=== PATIENT | female | born 1970 | race Caucasian/White ===

== ENCOUNTER → 2016-08-23 | Outpatient (CLI) | payer BC ==
--- NOTE | 2016-08-23 15:08 | US ---
EXAMINATION TYPE: US pelvis complete transvag DATE OF EXAM: 08/23/2016 7:16 AM COMPARISON: NONE CLINICAL HISTORY: R10.2 PELVIC PAIN. Pelvic pain during physical when pressure applied to pelvis, h/o ablation, h/o ovarian cysts years ago TECHNIQUE: TA and TV Date of LMP: h/o ablation, pt unsure EXAM MEASUREMENTS: Uterus: 10.0 x 5.4 x 4.7 cm Endometrial Stripe: 0.7 cm Right Ovary: 2.9 x 2.3 x 2.0 cm Left Ovary: 3.3 x 2.8 x 2.7 cm 1. Uterus: Anteverted wnl 2. Endometrium: wnl 3. Right Ovary: 1.6cm follicle seen 4. Left Ovary: 2.1cm simple appearing cyst only seen transabdominally 5. Bilateral Adnexa: wnl 6. Posterior cul-de-sac: wnl IMPRESSION: 1. 2.1 cm left ovarian cyst. Follow-up is recommended. 2. Small amount of fluid within the endometrial canal at the level of the cervix.
== END | disposition home or self-care (01) ==
LOC: RADUSWWP 06:49
PROVIDERS: ATTEND Obstetrics & Gynecology
DX: N83.202 Unspecified ovarian cyst, left side (principal)
CPT/HCPCS: 76830; 76856

== ENCOUNTER → 2017-03-06 | Outpatient (CLI) | payer OTHER ==
--- NOTE | 2017-03-07 09:58 | XR ---
EXAMINATION TYPE: XR chest 2V DATE OF EXAM: 03/06/2017 COMPARISON: 09/09/2014 HISTORY: Bronchitis TECHNIQUE: Frontal and lateral views of the chest are obtained. FINDINGS: There is no focal air space opacity. No evidence for pneumothorax. No pleural effusion. The cardiac silhouette size is within normal limits. The osseous structures are grossly intact. IMPRESSION: 1. No acute cardiopulmonary process.
== END ==
LOC: RADXRMAIN 15:46
PROVIDERS: ATTEND Internal Medicine
DX: J40 Bronchitis, not specified as acute or chronic (principal)
CPT/HCPCS: 71020

== ENCOUNTER → 2017-06-28 | Outpatient (CLI) | payer OTHER ==
--- NOTE | 2017-06-28 14:38 | XR ---
EXAMINATION TYPE: XR chest 2V DATE OF EXAM: 06/28/2017 COMPARISON: Prior chest x-ray 03/06/2017 HISTORY: Acute upper respiratory infection TECHNIQUE: Frontal and lateral views of the chest are obtained. FINDINGS: There is no focal air space opacity, pleural effusion, or pneumothorax seen. The cardiac silhouette size is within normal limits. Azygos lobe again noted and is stable. The osseous structur es are intact. IMPRESSION: No acute cardiopulmonary process.
== END | disposition home or self-care (01) ==
LOC: RADXRMAIN 09:56
PROVIDERS: ATTEND Internal Medicine
DX: J06.9 Acute upper respiratory infection, unspecified (principal)
CPT/HCPCS: 71046

== ENCOUNTER 2018-01-31 14:47 | Observation (INO) | payer OTHER ==
[2018-01-31] MEDS ORDERED: ASPIRIN 81 MG PO STA (15:02)
--- NOTE | 2018-01-31 15:05 | ED ---
Chest Pain HPI - General Chief Complaint: Chest Pain Stated Complaint: chest pain Time Seen by Provider: 01/31/18 14:56 Source: patient, RN notes reviewed Mode of arrival: wheelchair Limitations: no limitations - History of Present Illness Initial Comments: This a 47-year-old female presents emergency Department with chief complaint of chest pain. Patient states started 1 hour prior arrival. Patient states that she had sharp stabbing type pain in her left side of her chest rate to her shoulder and she became very nauseated and diaphoretic. She states pain is improving at this time. She states initially he did take her breath away but she has no current shortness breath. She does have a history of hypertension and struck her doses. Patient has stress test several years ago. Patient denies any history of diabetes, hyperlipidemia or smoking history. Patient states she does have family heart disease. - Related Data Home Medications Medication Instructions Recorded Confirmed Multivitamins, Thera [Multivitamin] 1 tab PO DAILY 01/06/16 01/31/18 Potassium Chloride [Klor-Con] 20 meq PO TID 01/06/16 01/31/18 Aspirin EC [Ecotrin Low Dose] 81 mg PO DAILY 01/31/18 01/31/18 Atenolol/Chlorthalidone 1 tab PO DAILY 01/31/18 01/31/18 [Atenolol-Chlorthalidone 100-25] Cholecalciferol [Vitamin D3] 1,000 unit PO DAILY 01/31/18 01/31/18 Levothyroxine Sodium [Synthroid] 175 mcg PO DAILY 01/31/18 01/31/18 buPROPion XL [Wellbutrin Xl] 150 mg PO DAILY 01/31/18 01/31/18 Allergies Allergy/AdvReac Type Severity Reaction Status Date / Time acetaminophen [From Vicodin] Allergy Rash/Hives Verified 01/31/18 15:44 hydrocodone bitartrate Allergy Rash/Hives Verified 01/31/18 15:44 [From Vicodin] meperidine HCl [From Demerol] Allergy Rash/Hives Verified 01/31/18 15:44 sulfamethoxazole Allergy Rash/Hives Verified 01/31/18 15:44 [From Bactrim] trimethoprim [From Bactrim] Allergy Rash/Hives Verified 01/31/18 15:44 Review of Systems ROS Statement: Those systems with pertinent positive or pertinent negative responses have been documented in the HPI. ROS Other: All systems not noted in ROS Statement are negative. EKG Findings - EKG Comments: EKG Findings:: EKG performed at 15:05 normal sinus rhythm with a rate of 76 VT 200 QRS 90 QT status QTC 376/423 there is no EKG changes noted from prior EKG 3 years ago. 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 History of Any Multi-Drug Resistant Organisms: None Reported Past Surgical History: No Surgical Hx Reported Past Anesthesia/Blood Transfusion Reactions: No Reported Reaction Past Psychological History: Depression Smoking Status: Never smoker Past Alcohol Use History: Occasional Past Drug Use History: None Reported - Past Family History Father Family Medical History: Hypertension Additional Family Medical History / Comment(s): alcoholic Mother Family Medical History: Hypertension General Exam Limitations: no limitations General appearance: alert, in no apparent distress Head exam: Present: atraumatic, normocephalic, normal inspection Neck exam: Present: normal inspection, full ROM. Absent: tenderness, meningismus, lymphadenopathy Respiratory exam: Present: normal lung sounds bilaterally. Absent: respiratory distress, wheezes, rales, rhonchi, stridor Cardiovascular Exam: Present: regular rate, normal rhythm, normal heart sounds. Absent: systolic murmur, diastolic murmur, rubs, gallop, clicks GI/Abdominal exam: Present: soft, normal bowel sounds. Absent: distended, tenderness, guarding, rebound, rigid Back exam: Absent: CVA tenderness (R), CVA tenderness (L) Neurological exam: Present: alert, oriented X3, CN II-XII intact Skin exam: Present: warm, dry, intact, normal color. Absent: rash Course Vital Signs 01/31/18 01/31/18 14:50 15:43 Temperature 97.9 F Pulse Rate 88 67 Respiratory 18 18 Rate Blood Pressure 134/81 116/77 O2 Sat by Pulse 99 98 Oximetry Disposition Clinical Impression: Chest pain Disposition: ADMITTED IP TO THIS HOSP Condition: Stable Referrals: Frankie Miller MD [Primary Care Provider] - 1-2 days Time of Disposition: 16:31
[2018-01-31 15:26] LABS: Basophils % (A) 1 %; Eosinophils # (A) 0.2 k/uL (0-0.7); Eosinophils % (A) 3 %; HCT 43.8 % (34.0-46.0); HGB 14.5 gm/dL (11.4-16.0); Lymphocytes # (A) 2.7 k/uL (1.0-4.8); Lymphocytes % (A) 37 %; MCH 30.6 pg (25.0-35.0); MCHC 33.1 g/dL (31.0-37.0); MCV 92.4 fL (80.0-100.0); Mean Platelet Volume 7.3; Monocytes # (A) 0.4 k/uL (0-1.0); Monocytes % (A) 5 %; Neutrophils # (A) 3.8 k/uL (1.3-7.7); Neutrophils % (A) 52 %; Platelet Count 305 k/uL (150-450); RBC 4.74 m/uL (3.80-5.40); RDW 12.8 % (11.5-15.5); WBC 7.2 k/uL (3.8-10.6)
[2018-01-31 15:35] LABS: Partial Thromboplastin Time 24.2 sec (22.0-30.0); Prothrombin Time 9.6 sec (9.0-12.0)
[2018-01-31 15:36] LABS: ALT 65 U/L (9-52); AST 60 U/L (14-36); Albumin 4.2 g/dL (3.5-5.0); Alkaline Phosphatase 109 U/L (38-126); Anion Gap 10 mmol/L; Blood Urea Nitrogen 20 mg/dL (7-17); Calcium 9.3 mg/dL (8.4-10.2); Carbon Dioxide 26 mmol/L (22-30); Chloride 103 mmol/L (98-107); Glucose 112 mg/dL (74-99); Lipase 124 U/L (23-300); Magnesium 1.9 mg/dL (1.6-2.3); Potassium 3.1 mmol/L (3.5-5.1); Sodium 139 mmol/L (137-145); Total Bilirubin 0.6 mg/dL (0.2-1.3); Total Protein 7.3 g/dL (6.3-8.2)
--- NOTE | 2018-01-31 15:42 | XR ---
EXAMINATION TYPE: XR chest 2V DATE OF EXAM: 01/31/2018 COMPARISON: 06/28/2017 TECHNIQUE: PA and lateral views submitted. HISTORY: Chest pain FINDINGS: There are bibasilar subsegmental areas of consolidation. Right hemidiaphragm is elevated. Heart size normal. No pneumothorax or overt failure. IMPRESSION: 1. Bilateral lower lobe atelectasis or early infiltrate.
[2018-01-31] MEDS ORDERED: POTASSIUM CHLORIDE ER 20 MEQ TAB.ER PO STA (15:43)
[2018-01-31 15:46] LABS: Creatine Kinase 59 U/L (30-135)
[2018-01-31 15:59] LABS: Creatine Kinase MB 0.2 ng/mL (0.0-2.4); Troponin I <0.012 ng/mL (0.000-0.034)
[2018-01-31] MEDS ORDERED: NITROGLYCERIN SL TABS 0.4 MG TAB SUBLINGUAL PRN (16:31)
[2018-01-31] MEDS ORDERED: HEPARIN SODIUM,PORCINE 5,000 UNIT/ML 1 ML VIAL IV ONE (16:31)
[2018-01-31] MEDS ORDERED: HEPARIN SOD,PORK IN 0.45% NACL 25,000 UNIT in 0.45% NACL 1 500ML.BAG IV SCH (16:45)
[2018-01-31] MEDS ORDERED: NALOXONE 0.4 MG/ML 1 ML VIAL IV PRN (18:24)
--- NOTE | 2018-01-31 18:31 | P.HPIM ---
History of Present Illness H&P Date: 01/31/18 The patient is a 47-year-old female with a past medical history of hypertension , who presented to the ED with complaints of left-sided, pressure-like chest pain. The pain started suddenly and was 10/10, radiating to the L shoulder, w/ associated SOB, nausea, diaphoresis, lasting 20 minutes, after which it decreased significantly and gradually resolved over the next hour. The pain worsened with deep breaths though the patient denied any tenderness of the site. The patient was sitting down when the pain started and she denied it having an exertional component or the pain having occurred in the past. She otherwise denied any anxiety, fever, chills, cough, vomiting, diarrhea, headache , visual disturbances, LE swelling, calf pain, prolonged immobilization, recent travel, or sick contacts. Of note, the patient had presented to ED w/ chest pain in 2014 and had a negative stress test. Review of Systems Pertinent positives and negatives as discussed in HPI, a complete review of systems was performed and all other systems are negative. 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 History of Any Multi-Drug Resistant Organisms: None Reported Past Surgical History: No Surgical Hx Reported Past Anesthesia/Blood Transfusion Reactions: No Reported Reaction Past Psychological History: Depression Smoking Status: Never smoker Past Alcohol Use History: Occasional Past Drug Use History: None Reported - Past Family History Father Family Medical History: Hypertension Additional Family Medical History / Comment(s): alcoholic Mother Family Medical History: Hypertension Medications and Allergies Home Medications Medication Instructions Recorded Confirmed Type Multivitamins, Thera [Multivitamin] 1 tab PO DAILY 01/06/16 01/31/18 History Potassium Chloride [Klor-Con] 20 meq PO TID 01/06/16 01/31/18 History Aspirin EC [Ecotrin Low Dose] 81 mg PO DAILY 01/31/18 01/31/18 History Atenolol/Chlorthalidone 1 tab PO DAILY 01/31/18 01/31/18 History [Atenolol-Chlorthalidone 100-25] Cholecalciferol [Vitamin D3] 1,000 unit PO DAILY 01/31/18 01/31/18 History Levothyroxine Sodium [Synthroid] 175 mcg PO DAILY 01/31/18 01/31/18 History buPROPion XL [Wellbutrin Xl] 150 mg PO DAILY 01/31/18 01/31/18 History Allergies Allergy/AdvReac Type Severity Reaction Status Date / Time acetaminophen [From Vicodin] Allergy Rash/Hives Verified 01/31/18 15:44 hydrocodone bitartrate Allergy Rash/Hives Verified 01/31/18 15:44 [From Vicodin] meperidine HCl [From Demerol] Allergy Rash/Hives Verified 01/31/18 15:44 sulfamethoxazole Allergy Rash/Hives Verified 01/31/18 15:44 [From Bactrim] trimethoprim [From Bactrim] Allergy Rash/Hives Verified 01/31/18 15:44 Physical Exam Vitals: Vital Signs Temp Pulse Pulse Resp BP BP Pulse Ox 01/31/18 17:30 98.1 F 66 122/76 96 01/31/18 17:15 72 18 116/78 97 01/31/18 16:36 64 18 111/71 99 01/31/18 15:43 67 18 116/77 98 01/31/18 14:50 97.9 F 88 18 134/81 99 Intake and Output 01/31/18 01/31/18 01/31/18 06:59 14:59 22:59 Other: Weight 85.729 kg 84.9 kg General: [non toxic], [no distress], [appears at stated age], [normal weight] Derm: [no unusual rashes/lesions] [no unusual ecchymoses], [warm], [dry] Head: [atraumatic], [normocephalic], [symmetric] Eyes: [EOMI], [no lid lag], [anicteric sclera], [pupils equal round reactive to light] ENT: [Nose and ears atraumatic], [no thrush], [no pharyngeal erythema] Neck: [No thyromegaly], [no cervical lymphadenopathy], [trachea midline], [ supple] Mouth: [no lip lesion], [mucus membranes moist] Cardiovascular: [S1S2 reg], [no murmur], [positive posterior tibial pulse bilateral], [no edema], [capillary refill less than 2 seconds], no chest wall tenderness Lungs: [CTA bilateral], [no rhonchi, no rales] , [no accessory muscle use] Abdominal: [soft], [ nontender to palpation], [no guarding], [no appreciable organomegaly], [normal bowel sounds] Ext: [no gross muscle atrophy], [muscle strength 5 out of 5 in all 4 extremities grossly], [no contractures], trace LE edema mercedes Neuro: [ CN II-XI grossly intact], [light touch intact all 4 extremities], [ finger to nose within normal limits], Psych: [Alert], [oriented], [appropriate affect] Results CBC & Chem 7: 01/31/18 15:10 01/31/18 15:10 Labs: Abnormal Lab Results - Last 24 Hours (Table) 01/31/18 Range/Units 15:10 Potassium 3.1 L (3.5-5.1) mmol/L BUN 20 H (7-17) mg/dL Glucose 112 H (74-99) mg/dL AST 60 H (14-36) U/L ALT 65 H (9-52) U/L Assessment and Plan Plan: Chest pain, r/o ACS, Troponin neg, EKG w/ TWI in leads V1-V3 and flattening in III, aVF, V4 and V5 - Place in Observation - Cardiology consult - Trend Troponin x 3, Telemetry monitoring - C/w Heparin infusion for now - C/w Aspirin 325 mg po qd for now. Will start Lipitor 40 mg qhs. Give Ezaimy12 mg po qd. - SL Nitro prn - Check lipid panel and A1C HTN - C/w Atenolol/Chlorthalidone 100-25 mg po qd Hypokalemia - Will replace Deranged LFTs - Monitor for now DVT//GI prophylaxis - Heparin infusion - No indication for GI prophylaxis The patient is placed in observation with an anticipated less than 2 per night stay for evaluation of chest pain Surrogate decision-maker: CODE STATUS: Full-code Discussed with: patient, Anticipated discharge date: 02/01/[address]: home A total of 60 minutes was spent on the care of this complex patient more than 50 % of the time was spent in counseling and care coordination.
[2018-01-31] MEDS: POTASSIUM BICARBONATE/CIT AC 20 MEQ TABLET.EFF PO SCH ×2 (18:56→20:52)
[2018-01-31] MEDS ORDERED: HEPARIN SODIUM,PORCINE 5,000 UNIT/ML 1 ML VIAL IV PRN (19:33)
[2018-01-31 23:07] LABS: Creatine Kinase 49 U/L (30-135)
[2018-01-31 23:20] LABS: Creatine Kinase MB <0.2 ng/mL (0.0-2.4); Troponin I <0.012 ng/mL (0.000-0.034)
[2018-02-01 00:20] VITALS: RESP 16
[2018-02-01 04:17] LABS: Creatine Kinase 46 U/L (30-135)
[2018-02-01 04:23] LABS: HCT 40.3 % (34.0-46.0); HGB 13.3 gm/dL (11.4-16.0); MCH 30.2 pg (25.0-35.0); MCHC 32.9 g/dL (31.0-37.0); MCV 91.9 fL (80.0-100.0); Mean Platelet Volume 7.7; Platelet Count 258 k/uL (150-450); RBC 4.38 m/uL (3.80-5.40); RDW 12.7 % (11.5-15.5); WBC 6.3 k/uL (3.8-10.6)
[2018-02-01 04:30] LABS: Creatine Kinase MB <0.2 ng/mL (0.0-2.4); Troponin I <0.012 ng/mL (0.000-0.034)
[2018-02-01 04:31] LABS: ALT 67 U/L (9-52); AST 58 U/L (14-36); Albumin 3.5 g/dL (3.5-5.0); Alkaline Phosphatase 93 U/L (38-126); Anion Gap 6 mmol/L; Blood Urea Nitrogen 21 mg/dL (7-17); Calcium 9.3 mg/dL (8.4-10.2); Carbon Dioxide 26 mmol/L (22-30); Chloride 106 mmol/L (98-107); Cholesterol 179 mg/dL (<200); Glucose 90 mg/dL (74-99); HDL Cholesterol 39 mg/dL (40-60); LDL Cholesterol,Calculated 94 mg/dL (0-99); Potassium 3.7 mmol/L (3.5-5.1); Sodium 138 mmol/L (137-145); Total Bilirubin 0.5 mg/dL (0.2-1.3); Total Protein 6.2 g/dL (6.3-8.2); Triglycerides 231 mg/dL (<150)
[2018-02-01 07:37] VITALS: TEMP 98.3
--- NOTE | 2018-02-01 07:38 | CONS ---
CONSULTATION Mrs. Cason's 47-year-old female with known history of hypertension, history of sarcoidosis that is in remission, who presented with symptoms of chest discomfort. Her discomfort started yesterday while at work, radiating to the left arm. She was afraid to take a deep breath because she felt the discomfort will get worse. She has no prior history of documented coronary artery disease. She was admitted to the hospital in 2015 with symptoms of chest discomfort and at that time a stress echocardiogram revealed no evidence of inducible ischemia. She is active in her physical activity, has no exertional chest pain. She has no dizziness or palpitation. No syncope. No PND or orthopnea. No peripheral edema. She has been followed by Dr. Pallavi Maguire on a regular basis. Her coronary risk factors are remarkable for hypertension. She is not a smoker, no hyperlipidemia and nondiabetic. MEDICATION: Her medications at home include Wellbutrin 150 mg daily, aspirin once a day, potassium, atenolol chlorthalidone 100/25 mg daily and levothyroxine. REVIEW OF SYSTEMS: RESPIRATORY SYSTEM: She has no documented history of asthma, emphysema or bronchitis. She has sarcoidosis as noted that is in remission and has been followed by Dr. Rock in the past. GI SYSTEM: No recent GI bleed, no peptic ulcer disease. No nausea or vomiting. SYSTEM: No dysuria or hematuria. NERVOUS SYSTEM: No stroke or seizure. PHYSICAL EXAMINATION: She is a 47-year-old female, alert, oriented, in no apparent distress. Blood pressure 102/60 with the heart rate in the 60s. HEAD: Normocephalic. EYES: Sclerae anicteric. NECK: Good upstroke. No bruit. No jugular venous distention. LUNGS: Clear to auscultation. HEART: Regular rate and rhythm. S1, S2. No S3. No gallop or rub. ABDOMEN: Soft, nontender. Positive bowel sounds. No organomegaly. EXTREMITIES: No edema. Intact distal pulses. LAB DATA: Her troponin less than 0.012, cholesterol 179, LDL of 94. Her BUN and creatinine 21 and 0.74. Potassium 3.7. Hemoglobin is 13.3. Her EKG revealed sinus mechanism, normal axis and intervals with T-wave inversion anteriorly that was noted in the past. Her chest x-ray shows questionable infiltrate on the lower lobe. IMPRESSION: 1. Symptoms of chest discomfort appears to be atypical for ischemic heart disease probably noncardiac. 2. History of hypertension, stable. 3. History of sarcoidosis. RECOMMENDATION: From the cardiac standpoint, I will stop her IV heparin. I will proceed with a stress echocardiogram. If there is no evidence of inducible ischemia, then no further cardiac workup will be needed. Thank you for this consult. We will follow with you. RON / JEANNINE: [id number] /
[2018-02-01] MEDS ORDERED: CLOPIDOGREL 75 MG TAB PO SCH (09:00)
[2018-02-01] MEDS ORDERED: ATORVASTATIN 40 MG TAB PO SCH (09:00)
[2018-02-01] MEDS ORDERED: CHLORTHALIDONE 25 MG TAB PO SCH (09:00)
[2018-02-01] MEDS ORDERED: ASPIRIN 325 MG TAB PO SCH ×2 (09:00)
[2018-02-01] MEDS ORDERED: ATENOLOL 50 MG TAB PO SCH (09:00)
[2018-02-01 12:04] VITALS: BP 94/60; PULSE 70
--- NOTE | 2018-02-01 12:53 | ECHOF ---
Referral Reason: MEASUREMENTS -------- HEIGHT: 160.0 cm WEIGHT: 84.8 kg BP: 102/66 RVIDd: 2.7 cm (< 3.3) IVSd: 1.1 cm (0.6 - 1.1) LVIDd: 4.2 cm (3.9 - 5.3) LVPWd: 1.1 cm (0.6 - 1.1) IVSs: 1.9 cm LVIDs: 2.9 cm LVPWs: 1.4 cm LA Diam: 3.1 cm (2.7 - 3.8) LAESV Index (A-L): 19.14 ml/m Ao Diam: 3.1 cm (2.0 - 3.7) AV Cusp: 1.9 cm (1.5 - 2.6) MV EXCURSION: 14.577 mm (> 18.000) MV EF SLOPE: 89 mm/s (70 - 150) EPSS: 0.4 cm MV E Colton: 0.67 m/s MV DecT: 277 ms MV A Colton: 0.62 m/s MV E/A Ratio: 1.09 FINDINGS -------- Sinus rhythm. This was a technically adequate study. The left ventricular size is normal. There is borderline concentric left ventricular hypertrophy. Overall left ventricular systolic function is normal with, an EF between 55 - 60 %. The right ventricle is normal in size. Normal LA size by volume 22+/-6 ml/m2. The right atrium is normal in size. The aortic valve is trileaflet, and appears structurally normal. No aortic stenosis or regurgitation. The mitral valve is normal. There is trace to mild mitral regurgitation. The tricuspid valve appears structurally normal. Trace tricuspid regurgitation present. There is no pulmonic regurgitation present. The aortic root size is normal. Normal inferior vena cava with normal inspiratory collapse consistent with estimated right atrial pre ssure of 5 mmHg. There is no pericardial effusion. CONCLUSIONS -------- 1. Sinus rhythm. 2. This was a technically adequate study. 3. The left ventricular size is normal. 4. There is borderline concentric left ventricular hypertrophy. 5. Overall left ventricular systolic function is normal with, an EF between 55 - 60 %. 6. Normal LA size by volume 22+/-6 ml/m2. 7. The aortic valve is trileaflet, and appears structurally normal. No aortic stenosis or regurgitati on. 8. There is trace to mild mitral regurgitation. 9. The tricuspid valve appears structurally normal. 10. Trace tricuspid regurgitation present. 11. There is no pulmonic regurgitation present. 12. The aortic root size is normal. 13. Normal inferior vena cava with normal inspiratory collapse consistent with estimated right atrial pressure of 5 mmHg. 14. There is no pericardial effusion. ASSOCIATE QUALITY ENGINEER: Susy Shore RDCS
[2018-02-01 13:50] LABS: Hemoglobin A1C 4.9 % (4.0-6.0)
--- NOTE | 2018-02-01 14:02 | ECHOS ---
STRESS ECHOCARDIOGRAM INDICATIONS: Chest pain, shortness of breath. BASELINE HEART RATE: 65 BASELINE BLOOD PRESSURE: 87/58 MAXIMUM HEART RATE: 155 MAXIMUM BLOOD PRESSURE: 198/44 85% MPHR: 145 100% MPHR: 171 METS: 11.1 MAXIMUM STAGE REACHED: 4 TOTAL EXERCISE TIME: 9:30 CLINICAL INFORMATION: Baseline rhythm is sinus mechanism rate 65, normal axis and intervals, nonspecific ST-T wave changes. Baseline blood pressure 87/58 mmHg. Patient exercised on Lambert protocol for 9 minutes 30 seconds reaching peak rate 155 beats per minute which is equal to 90% maximum predicted heart rate. Peak blood pressure 198/44 mmHg. Test was terminated due to fatigue. There was no chest pain. Electrocardiograph monitoring revealed no evidence of diagnostic ischemic ST deviation. FINDINGS: Baseline echocardiogram revealed normal wall thickening motion at peak exercise. There was normal wall motion augmentation with no hypokinesis or dyskinesis. CONCLUSION: 1. Good exercise tolerance with nondiagnostic electrocardiograph stress testing, some baseline EKG abnormality. 2. Normal stress echocardiogram with no evidence of stress-induced ischemia. MMODL / IJN: [id number] /
--- NOTE | 2018-02-01 15:51 | P.DS ---
Providers Date of admission: 01/31/18 16:50 Expected date of discharge: 02/01/18 Attending physician: Jamaica Hassan DO Consults: 01/31/18 16:31 Consult Physician Urgent Consulting Provider: Lopez Hernandez Consult Reason/Comments: Chest pain Do you want consulting provider notified?: Yes Primary care physician: [facility] Course: The patient is a 47 yo F with the PMH of HTN who presented to the ED w/ the c/o L sided pressure like chest pain which lasting 20 minutes, radiating to L shoulder, w/ associated SOB, nausea, and diaphoresis. The patient was placed under Observation status for the chest pain and was started on IV Heparin infusion. EKG showed TWI and flattening in multiple leads with Troponin neg x 3. Furthermore, patient's potassium was low and was repleted. Cardiology was consulted and recommended stress Echo which was performed and was unremarkable. The patient had no further recurrence of her symptoms and she is presently stable and ready for discharge to home w/ outpatient Cardiology f/u. Physical Examination General: Awake, alert, in no acute distress HEENT: NC/AT, anicteric sclerae, moist conjunctiva, no lid-lag, PERRLA, oropharynx clear, no erythema, exudates Cardiovascular: S1/S2 wnl, no murmurs, rubs, or gallops Lungs: Clear to auscultation, normal respiratory effort, no accessory muscle use Abdominal: Soft, nontender, non-distended, no guarding, rebound, or rigidity, normoactive bowel sounds Skin: Warm, dry Extremities: No edema or contractures Psychiatric: Alert and oriented to person, place and time, appropriate affect, Intact judgment Neuro: CN II-XI grossly intact, sensation to light touch grossly present throughout, no focal sensory deficits Discharge diagnosis:Chest pain, musculoskeletal, ACS ruled out; HTN; Hypokalemia , Deranged LFTs. A total of 45 minutes of time were spent preparing this complex discharge summary. Pertinent Studies: Stress Echocardiogram: Good exercise tolerate w/ non-diagnostic EKG stress testing w/ some baseline EKG abnormality. Normal stress Echo w/ no evidence of stress-induced ischemia. Patient Condition at Discharge: Stable Plan - Discharge Summary Discharge Rx Participant: No New Discharge Prescriptions: Continue Potassium Chloride [Klor-Con Packets] 20 meq PO TID Multivitamins, Thera [Multivitamin (formulary)] 1 tab PO DAILY buPROPion XL [Wellbutrin XL] 150 mg PO DAILY Cholecalciferol [Vitamin D3] 1,000 unit PO DAILY Aspirin EC [Ecotrin Low Dose] 81 mg PO DAILY Levothyroxine Sodium [Synthroid] 175 mcg PO DAILY Atenolol/Chlorthalidone [Atenolol-Chlorthalidone 100-25] 1 tab PO DAILY Discharge Medication List Multivitamins, Thera [Multivitamin (formulary)] 1 tab PO DAILY 01/06/16 [History ] Potassium Chloride [Klor-Con Packets] 20 meq PO TID 01/06/16 [History] Aspirin EC [Ecotrin Low Dose] 81 mg PO DAILY 01/31/18 [History] Atenolol/Chlorthalidone [Atenolol-Chlorthalidone 100-25] 1 tab PO DAILY [History] Cholecalciferol [Vitamin D3] 1,000 unit PO DAILY 01/31/18 [History] Levothyroxine Sodium [Synthroid] 175 mcg PO DAILY 01/31/18 [History] buPROPion XL [Wellbutrin XL] 150 mg PO DAILY 01/31/18 [History] Follow up Appointment(s)/Referral(s): Shana Maguire MD [STAFF PHYSICIAN] - As Needed (Patient has an existing appointment with Dr Maguire that she will follow up with.) Frankie Miller MD [Primary Care Provider] - 1-2 days Patient Instructions/Handouts: Chest Pain (DC) Discharge Disposition: HOME SELF-CARE
== END 2018-02-01 14:55 | disposition home or self-care (01) ==
LOC: EC 14:47 → 3OBS 16:50
PROVIDERS: ADMIT Internal Medicine; ATTEND Internal Medicine
DX: R07.89 Other chest pain (principal); I10 Essential (primary) hypertension; D86.9 Sarcoidosis, unspecified; E87.6 Hypokalemia; R94.5 Abnormal results of liver function studies; E07.9 Disorder of thyroid, unspecified; F32.9 Major depressive disorder, single episode, unspecified; Z79.82 Long term (current) use of aspirin; Z79.890 Hormone replacement therapy; Z79.899 Other long term (current) drug therapy; Z88.6 Allergy status to analgesic agent; Z88.1 Allergy status to other antibiotic agents; Z88.5 Allergy status to narcotic agent; Z88.2 Allergy status to sulfonamides; Z81.1 Family history of alcohol abuse and dependence; Z82.49 Family history of ischemic heart disease and other diseases of the circulatory system
CPT/HCPCS: 96366 ×2; 96376; 96365; 99285; 36415; 93005; 93306; 93351; 80061; 80053 ×2; 82550 ×2; 82553 ×2; 83690; 83735; 84484 ×2; 85025; 85027; 85610; 85730 ×2; 83036; 71046; G0378 ×2; J1644 ×2; Q9950

== ENCOUNTER → 2018-02-19 | Outpatient (CLI) | payer OTHER ==
[2018-02-19 10:52] LABS: Basophils % (A) 0 %; Eosinophils # (A) 0.2 k/uL (0-0.7); Eosinophils % (A) 3 %; HCT 40.4 % (34.0-46.0); HGB 13.7 gm/dL (11.4-16.0); Lymphocytes # (A) 2.1 k/uL (1.0-4.8); Lymphocytes % (A) 33 %; MCH 30.7 pg (25.0-35.0); MCHC 33.8 g/dL (31.0-37.0); MCV 90.7 fL (80.0-100.0); Mean Platelet Volume 7.6; Monocytes # (A) 0.5 k/uL (0-1.0); Monocytes % (A) 8 %; Neutrophils # (A) 3.4 k/uL (1.3-7.7); Neutrophils % (A) 54 %; Platelet Count 250 k/uL (150-450); RBC 4.46 m/uL (3.80-5.40); RDW 12.7 % (11.5-15.5); WBC 6.3 k/uL (3.8-10.6)
[2018-02-19 12:07] LABS: Erythrocyte Sedimentation Rate 15 mm/hr (0-20)
[2018-02-19 16:06] LABS: Rheumatoid Factor 8 IU/mL (0-15)
[2018-02-19 16:09] LABS: Albumin 4.4 g/dL (3.80-4.90); Albumin/Globulin Ratio 1.91 (1.20-2.10); Anion Gap 9.6 mmol/L (4.00-12.00); Calcium 9.4 mg/dL (8.7-10.3); Carbon Dioxide 26.4 mmol/L (21.6-31.8); Globulin 2.3 g/dL (2.1-3.7); Potassium 3.6 mmol/L (3.5-5.5); Total Bilirubin 0.5 mg/dL (0.2-1.2); Total Protein 6.7 g/dL (6.2-8.2)
[2018-02-19 17:52] LABS: Cyclic Citrullinated Pep IgG NEGATIVE (NEGATIVE)
== END | disposition home or self-care (01) ==
LOC: LABWHC1 10:11
PROVIDERS: ATTEND Internal Medicine
DX: M06.9 Rheumatoid arthritis, unspecified (principal); D86.86 Sarcoid arthropathy
CPT/HCPCS: 36415; 80053; 82164; 85025; 85652; 86038; 86200; 86431

== ENCOUNTER 2018-04-03 08:19 | Inpatient (IN) | payer OTHER ==
[2018-04-03] MEDS ORDERED: HYDROmorphone 1 MG/ML 1 ML SYRINGE IVP STA ×3 (08:41→11:16)
[2018-04-03] MEDS ORDERED: ONDANSETRON 4 MG/2 ML VIAL IVP STA (08:41)
[2018-04-03] MEDS ORDERED: SODIUM CHLORIDE 0.9% 1,000 ML IV STA (08:41)
--- NOTE | 2018-04-03 08:47 | ED ---
General Adult HPI - General Chief complaint: Abdominal Pain Stated complaint: Abd Pain Time Seen by Provider: 04/03/18 08:27 Source: patient, RN notes reviewed Mode of arrival: ambulatory Limitations: no limitations - History of Present Illness Initial comments: Patient 47-year-old female presenting to the emergency room today with a chief complaint of right-sided abdominal pain starting last night approximately 7 PM. Patient describes it as sharp pain currently rated a 9/10. Denies any radiation. Does admit that she has history kidney stones also ovarian cyst. She states not sure if this feels similar to her. She does admit to feeling nauseated. Denies any other complaints symptoms. Patient denies any recent fever, chills, shortness of breath, chest pain, back pain, vomiting, numbness or tingling, dysuria or hematuria, constipation or diarrhea, headaches or visual changes, or any other complaints. - Related Data Home Medications Medication Instructions Recorded Confirmed Multivitamins, Thera [Multivitamin 1 tab PO DAILY 01/06/16 04/03/18 (formulary)] Potassium Chloride [Klor-Con 20 meq PO TID 01/06/16 04/03/18 Packets] Aspirin EC [Ecotrin Low Dose] 81 mg PO DAILY 01/31/18 04/03/18 Atenolol/Chlorthalidone 1 tab PO DAILY 01/31/18 04/03/18 [Atenolol-Chlorthalidone 100-25] Cholecalciferol [Vitamin D3] 1,000 unit PO DAILY 01/31/18 04/03/18 Levothyroxine Sodium [Synthroid] 175 mcg PO DAILY 01/31/18 04/03/18 traZODone HCL [Desyrel] 50 mg PO DAILY 04/03/18 04/03/18 Allergies Allergy/AdvReac Type Severity Reaction Status Date / Time acetaminophen [From Vicodin] Allergy Rash/Hives Verified 04/03/18 10:10 hydrocodone bitartrate Allergy Rash/Hives Verified 04/03/18 10:10 [From Vicodin] meperidine HCl [From Demerol] Allergy Rash/Hives Verified 04/03/18 10:10 sulfamethoxazole Allergy Rash/Hives Verified 04/03/18 10:10 [From Bactrim] trimethoprim [From Bactrim] Allergy Rash/Hives Verified 04/03/18 10:10 Review of Systems ROS Statement: Those systems with pertinent positive or pertinent negative responses have been documented in the HPI. ROS Other: All systems not noted in ROS Statement are negative. 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 History of Any Multi-Drug Resistant Organisms: None Reported Past Surgical History: No Surgical Hx Reported Additional Past Surgical History / Comment(s): hx bx lungs, rt thumb benign tumor removed,novosure ablation Past Anesthesia/Blood Transfusion Reactions: No Reported Reaction Past Psychological History: Depression Smoking Status: Never smoker Past Alcohol Use History: Occasional Past Drug Use History: None Reported - Past Family History Father Family Medical History: Hypertension Additional Family Medical History / Comment(s): alcoholic Mother Family Medical History: Hypertension General Exam - General Exam Comments Initial Comments: General: The patient is awake and alert, mild distress. Eye: There is normal conjunctiva bilaterally. No signs of icterus. Ears, nose, mouth and throat: There are moist mucous membranes and no oral lesions. Neck: The neck is supple, there is no tenderness or JVD. Cardiovascular: There is a regular rate and rhythm. No murmur, rub or gallop is appreciated. Respiratory: Lungs are clear to auscultation, respirations are non-labored, breath sounds are equal. No wheezes, stridor, rales, or rhonchi. Gastrointestinal: Abdomen soft on palpation. Patient tender greatest in right lower quadrant. No rebound, guarding or CVA tenderness. Musculoskeletal: Normal ROM, no tenderness. Neurological: A&O x 3. CN II-XII intact, There are no obvious motor or sensory deficits. Coordination appears grossly intact. Speech is normal. Skin: Skin is warm and dry and no rashes or lesions are noted. Psychiatric: Cooperative, appropriate mood & affect, normal judgment. Limitations: no limitations Course Vital Signs 04/03/18 04/03/18 08:21 08:29 Temperature 97.3 F L Pulse Rate 83 Respiratory 18 Rate Blood Pressure 124/78 124/89 O2 Sat by Pulse 98 Oximetry Medical Decision Making - Medical Decision Making Patient's labs been reviewed. Patient does have tenderness right lower quadrant. CT reviewed does show evidence for acute appendicitis. Patient started on Zosyn here in the emergency room will be admitted to the on-call surgeon. - Lab Data Result diagrams: 04/03/18 08:37 04/03/18 08:37 Lab Results 04/03/18 04/03/18 04/03/18 Range/Units 08:37 08:37 08:45 WBC 7.6 (3.8-10.6) k/uL RBC 4.80 (3.80-5.40) m/uL Hgb 14.5 (11.4-16.0) gm/dL Hct 43.5 (34.0-46.0) % MCV 90.5 (80.0-100.0) fL MCH 30.2 (25.0-35.0) pg MCHC 33.3 (31.0-37.0) g/dL RDW 12.4 (11.5-15.5) % Plt Count 272 (150-450) k/uL Neutrophils % 63 % Lymphocytes % 26 % Monocytes % 6 % Eosinophils % 1 % Basophils % 0 % Neutrophils # 4.8 (1.3-7.7) k/uL Lymphocytes # 2.0 (1.0-4.8) k/uL Monocytes # 0.5 (0-1.0) k/uL Eosinophils # 0.1 (0-0.7) k/uL Basophils # 0.0 (0-0.2) k/uL Sodium 141 (137-145) mmol/L Potassium 3.5 (3.5-5.1) mmol/L Chloride 103 (98-107) mmol/L Carbon Dioxide 27 (22-30) mmol/L Anion Gap 11 mmol/L BUN 28 H (7-17) mg/dL Creatinine 0.74 (0.52-1.04) mg/dL Est GFR (CKD-EPI)AfAm >90 (>60 ml/min/1.73 sqM) Est GFR (CKD-EPI)NonAf >90 (>60 ml/min/1.73 sqM) Glucose 98 (74-99) mg/dL Calcium 9.9 (8.4-10.2) mg/dL Total Bilirubin 0.7 (0.2-1.3) mg/dL AST 31 (14-36) U/L ALT 46 (9-52) U/L Alkaline Phosphatase 113 (38-126) U/L Total Protein 7.6 (6.3-8.2) g/dL Albumin 4.3 (3.5-5.0) g/dL Amylase 86 (30-110) U/L Lipase 102 (23-300) U/L Urine Color Yellow Urine Appearance Cloudy H (Clear) Urine pH 5.0 (5.0-8.0) Ur Specific [place] 1.022 (1.001-1.035) Urine Protein Negative (Negative) Urine Glucose (UA) Negative (Negative) Urine Ketones Negative (Negative) Urine Blood Trace H (Negative) Urine Nitrite Negative (Negative) Urine Bilirubin Negative (Negative) Urine Urobilinogen <2.0 (<2.0) mg/dL Ur Leukocyte Esterase Small H (Negative) Urine RBC <1 (0-5) /hpf Urine WBC 3 (0-5) /hpf Ur Squamous Epith Cells 8 H (0-4) /hpf Urine Mucus Occasional H (None) /hpf Disposition Clinical Impression: Acute appendicitis Disposition: ADMITTED IP TO THIS [facility] Condition: Stable Is patient prescribed a controlled substance at d/c from ED?: No Referrals: Frankie Miller MD [Primary Care Provider] - 1-2 days Time of Disposition: 10:32
[2018-04-03 09:12] LABS: ALT 46 U/L (9-52); AST 31 U/L (14-36); Albumin 4.3 g/dL (3.5-5.0); Alkaline Phosphatase 113 U/L (38-126); Amylase 86 U/L (30-110); Anion Gap 11 mmol/L; Basophils % (A) 0 %; Blood Urea Nitrogen 28 mg/dL (7-17); Calcium 9.9 mg/dL (8.4-10.2); Carbon Dioxide 27 mmol/L (22-30); Chloride 103 mmol/L (98-107); Eosinophils # (A) 0.1 k/uL (0-0.7); Eosinophils % (A) 1 %; Glucose 98 mg/dL (74-99); HCT 43.5 % (34.0-46.0); HGB 14.5 gm/dL (11.4-16.0); Lipase 102 U/L (23-300); Lymphocytes % (A) 26 %; MCH 30.2 pg (25.0-35.0); MCHC 33.3 g/dL (31.0-37.0); MCV 90.5 fL (80.0-100.0); Mean Platelet Volume 7.1; Monocytes # (A) 0.5 k/uL (0-1.0); Monocytes % (A) 6 %; Neutrophils # (A) 4.8 k/uL (1.3-7.7); Neutrophils % (A) 63 %; Platelet Count 272 k/uL (150-450); Potassium 3.5 mmol/L (3.5-5.1); RDW 12.4 % (11.5-15.5); Sodium 141 mmol/L (137-145); Total Bilirubin 0.7 mg/dL (0.2-1.3); Total Protein 7.6 g/dL (6.3-8.2); WBC 7.6 k/uL (3.8-10.6)
[2018-04-03 09:27] LABS: Appearance,Urine Cloudy (Clear); Bilirubin,Urine Negative (Negative); Blood,Urine Trace (Negative); Color,Urine Yellow; Glucose,Urine (UA) Negative (Negative); Ketones,Urine Negative (Negative); Leukocyte Esterase,Urine Small (Negative); Mucus,Urine Occasional /hpf; Nitrite,Urine Negative (Negative); Protein,Urine Negative (Negative); RBC,Urine <1 /hpf (0-5); Specific Gravity,Urine 1.022 (1.001-1.035); Squamous Epithelial Cell,Urine 8 /hpf (0-4); Urobilinogen,Urine <2.0 mg/dL (<2.0); WBC,Urine 3 /hpf (0-5)
--- NOTE | 2018-04-03 10:07 | CT ---
EXAMINATION TYPE: CT abdomen pelvis w con DATE OF EXAM: 04/03/2018 COMPARISON: NONE HISTORY: 47-year-old female with RLQ pain. TECHNIQUE: Contiguous axial scanning of the abdomen and pelvis following administration of 100 ml Iso wild 300 IV contrast. Delayed images through the kidneys and coronal/sagittal reconstructions perform ed. CT DLP: 812 mGycm Automated exposure control for dose reduction was used. FINDINGS: Heart normal size without pericardial effusion. Mild hazy areas of atelectasis in the lower lungs. Tiny hernia. No focal liver lesion or biliary ductal dilatation. Portal venous system is patent. Gallbladder, adrenal glands, left kidney, spleen, and pancreas appear within normal limits. Tiny cortical based subcentimeter hypodensity anterior upper pole right kidney too small for accurate CT characterization, likely tiny cyst. No dilated small bowel, free fluid, or free air. Mildly enlarged right-sided mesenteric lymph nodes measure up to 1.1 cm, likely reactive. The appendix is visualized, inflamed, thickened, and fluid-filled with mild periappendiceal fat stran ding and scattered dependent choleliths measuring up to 6 mm. There is a tiny 4 mm appendicolith at t he appendiceal base. Moderate stool burden. No additional pericolonic inflammatory change. Bladder nondistended. Uterus and ovaries are visualized. No abnormal fluid collection in the pelvis o r pelvic lymphadenopathy seen. Bones: No osseous destructive process. IMPRESSION: EXAM POSITIVE FOR MILD ACUTE DIVERTICULITIS. THERE ARE ASSOCIATED APPENDICOLITHS MEASURING 6 AND 4 MM . NO ABSCESS OR FREE AIR OR OTHER EVIDENT COMPLICATION.
[2018-04-03] MEDS ORDERED: PIPERACILLIN-TAZOBACTAM 3.375 GM in SODIUM CHLORIDE 0.9% 100 ML IVPB STA (10:25)
[2018-04-03] MEDS ORDERED: SODIUM CHLORIDE 0.9% 1,000 ML IV ONE (10:33)
[2018-04-03] MEDS ORDERED: HYDROmorphone 1 MG/ML 1 ML SYRINGE IVP PRN (10:33)
[2018-04-03] MEDS ORDERED: NALOXONE 0.4 MG/ML 1 ML VIAL IV PRN (10:33)
[2018-04-03] MEDS ORDERED: ACETAMINOPHEN IV (For NPO) 1,000 MG in EMPTY BAG 1 BAG IVPB STA (11:32)
[2018-04-03] MEDS ORDERED: diphenhydrAMINE 25 MG CAP PO STA (11:34)
--- NOTE | 2018-04-03 13:41 | P.GSHP ---
<Janet Barry - Last Filed: 04/03/18 14:08> History of Present Illness H&P Date: 04/03/18 Chief Complaint: Right side abdominal pain 47-year-old female presented to the emergency room with a chief complaint of developing a sudden onset of right-sided upper quadrant abdominal pain radiated across the back described it as a sharp intense pain. Patient stated she felt nauseated. Patient states does have a history of having prior kidney stones also ovarian cyst disease. This Pain felt different patient stated that been no change in bowel habits no fever chills no chest pain no shortness of breath. Patient states she felt nauseated but did not actually vomit. In the emergency room the patient was experiencing tenderness to the right upper and lower quadrant of the abdomen. A CAT scan was obtained of the abdomen and pelvis the report indicated acute appendicitis. Patient started on Zosyn admitted to the services of the attending. Patient denies any prior episodes when questioning. Patient gives no past abdominal surgical history. Past medical history hypertension, sarcoidosis, thyroid disease Patient has multiple drug ALLERGIES including Demerol, Vicodin, acetaminophen - Review of Systems Comment: Essentially unremarkable except as mentioned in the present illness Past Medical History Past Medical History: Chest Pain / Angina, Hypertension, Thyroid Disorder Additional Past Medical History / Comment(s): Pt states she has sarcoidosis which has affected all her organs except for her brain and heart, kidney stones which pt passed, ovarian cysts, hypothyroid, UTIs, hypokalemia. History of Any Multi-Drug Resistant Organisms: None Reported Past Surgical History: Uterine Ablation Additional Past Surgical History / Comment(s): Mediastinoscopy/bx, rt thumb benign tumor removed, novosure uterine ablation, colonoscopy. Past Anesthesia/Blood Transfusion Reactions: Motion Sickness Additional Past Anesthesia/Blood Transfusion Reaction / Comment(s): Pt states she has been itchy after general anesthesia. Smoking Status: Never smoker - Past Family History Father Family Medical History: Hypertension Additional Family Medical History / Comment(s): alcoholic Mother Family Medical History: Hypertension Medications and Allergies Home Medications Medication Instructions Recorded Confirmed Type Multivitamins, Thera [Multivitamin 1 tab PO DAILY 01/06/16 04/03/18 History (formulary)] Potassium Chloride [Klor-Con 20 meq PO TID 01/06/16 04/03/18 History Packets] Aspirin EC [Ecotrin Low Dose] 81 mg PO DAILY 01/31/18 04/03/18 History Atenolol/Chlorthalidone 1 tab PO DAILY 01/31/18 04/03/18 History [Atenolol-Chlorthalidone 100-25] Cholecalciferol [Vitamin D3] 1,000 unit PO DAILY 01/31/18 04/03/18 History Levothyroxine Sodium [Synthroid] 175 mcg PO DAILY 01/31/18 04/03/18 History traZODone HCL [Desyrel] 50 mg PO DAILY 04/03/18 04/03/18 History Allergies Allergy/AdvReac Type Severity Reaction Status Date / Time acetaminophen [From Vicodin] Allergy Rash/Hives Verified 04/03/18 10:10 hydrocodone bitartrate Allergy Rash/Hives Verified 04/03/18 10:10 [From Vicodin] meperidine HCl [From Demerol] Allergy Rash/Hives Verified 04/03/18 10:10 sulfamethoxazole Allergy Rash/Hives Verified 04/03/18 10:10 [From Bactrim] trimethoprim [From Bactrim] Allergy Rash/Hives Verified 04/03/18 10:10 Surgical - Exam Vital Signs Temp Pulse Resp BP Pulse Ox 97.3 F L 83 18 124/78 98 04/03/18 08:21 04/03/18 08:21 04/03/18 08:21 04/03/18 08:21 04/03/18 08:21 GENERAL APPEARANCE: patient is alert, oriented, in no acute distress. Just received IV pain medication VITAL SIGNS: Reviewed HEENT: Head is normocephalic and atraumatic. Pupils are equal and reactive. The nares are patent. Oropharynx is clear without lesions. NECK: Supple without lymphadenopathy. Traches midline. HEART: S1, S2. Regular rate and rhythm. Normal limits chest pain LUNGS: No crackles or wheezes are heard. Adequate air movement sats on room air 98% ABDOMEN: Soft, mild tenderness to the right lower quadrant radiating nondistended with good bowel sounds. No peritoneal signs. No palpable organomegaly or masses. EXTREMITIES: Normal skin color and turgor. No cyanosis, rash, ulceration, clubbing or edema. Radial pedal pulses are 2/4 bilaterally. NEUROLOGICAL: No focal deficits. Strength and sensation are grossly intact. Results - Labs 04/03/18 08:37 12/05/18 08:37 Abnormal Lab Results - Last 24 Hours (Table) 04/03/18 04/03/18 Range/Units 08:37 08:45 BUN 28 H (7-17) mg/dL Urine Appearance Cloudy H (Clear) Urine Blood Trace H (Negative) Ur Leukocyte Esterase Small H (Negative) Ur Squamous Epith Cells 8 H (0-4) /hpf Urine Mucus Occasional H (None) /hpf Diabetes panel 04/03/18 Range/Units 08:37 Sodium 141 (137-145) mmol/L Potassium 3.5 (3.5-5.1) mmol/L Chloride 103 (98-107) mmol/L Carbon Dioxide 27 (22-30) mmol/L BUN 28 H (7-17) mg/dL Creatinine 0.74 (0.52-1.04) mg/dL Glucose 98 (74-99) mg/dL Calcium 9.9 (8.4-10.2) mg/dL AST 31 (14-36) U/L ALT 46 (9-52) U/L Alkaline Phosphatase 113 (38-126) U/L Total Protein 7.6 (6.3-8.2) g/dL Albumin 4.3 (3.5-5.0) g/dL Calcium panel 04/03/18 Range/Units 08:37 Calcium 9.9 (8.4-10.2) mg/dL Albumin 4.3 (3.5-5.0) g/dL Pituitary panel 04/03/18 Range/Units 08:37 Sodium 141 (137-145) mmol/L Potassium 3.5 (3.5-5.1) mmol/L Chloride 103 (98-107) mmol/L Carbon Dioxide 27 (22-30) mmol/L BUN 28 H (7-17) mg/dL Creatinine 0.74 (0.52-1.04) mg/dL Glucose 98 (74-99) mg/dL Calcium 9.9 (8.4-10.2) mg/dL Adrenal panel 04/03/18 Range/Units 08:37 Sodium 141 (137-145) mmol/L Potassium 3.5 (3.5-5.1) mmol/L Chloride 103 (98-107) mmol/L Carbon Dioxide 27 (22-30) mmol/L BUN 28 H (7-17) mg/dL Creatinine 0.74 (0.52-1.04) mg/dL Glucose 98 (74-99) mg/dL Calcium 9.9 (8.4-10.2) mg/dL Total Bilirubin 0.7 (0.2-1.3) mg/dL AST 31 (14-36) U/L ALT 46 (9-52) U/L Alkaline Phosphatase 113 (38-126) U/L Total Protein 7.6 (6.3-8.2) g/dL Albumin 4.3 (3.5-5.0) g/dL Assessment and Plan Assessment: Impression Present on admission right side upper quadrant abdominal pain with a nausea sensation suspect due to acute appendicitis CAT scan abdomen and pelvis report indicate exam positive for mild acute appendicitis History of sarcoidosis in remission Recent January dobutamine stress echo no evidence of reversible ischemia Multiple drug ALLERGY Plan Keep nothing by mouth scheduled today for laparoscopic appendectomy for acute appendicitis Pain control IV hydration as ordered IV Zosyn as ordered DVT and GI prophylaxis Further surgical recommendations pending clinical course The above impression and plan of care have been discussed and directed by signing physician. Janet Barry nurse practitioner acting as scribe for signing physician. <Eri Guadarrama N - Last Filed: 04/03/18 17:00> Surgical - Exam Vital Signs Temp Pulse Resp BP Pulse Ox 97.3 F L 83 18 124/78 98 04/03/18 08:21 04/03/18 08:21 04/03/18 08:21 04/03/18 08:21 04/03/18 08:21 Results - Labs 04/03/18 08:37 04/03/18 08:37 Abnormal Lab Results - Last 24 Hours (Table) 04/03/18 04/03/18 Range/Units 08:37 08:45 BUN 28 H (7-17) mg/dL Urine Appearance Cloudy H (Clear) Urine Blood Trace H (Negative) Ur Leukocyte Esterase Small H (Negative) Ur Squamous Epith Cells 8 H (0-4) /hpf Urine Mucus Occasional H (None) /hpf Diabetes panel 04/03/18 Range/Units 08:37 Sodium 141 (137-145) mmol/L Potassium 3.5 (3.5-5.1) mmol/L Chloride 103 (98-107) mmol/L Carbon Dioxide 27 (22-30) mmol/L BUN 28 H (7-17) mg/dL Creatinine 0.74 (0.52-1.04) mg/dL Glucose 98 (74-99) mg/dL Calcium 9.9 (8.4-10.2) mg/dL AST 31 (14-36) U/L ALT 46 (9-52) U/L Alkaline Phosphatase 113 (38-126) U/L Total Protein 7.6 (6.3-8.2) g/dL Albumin 4.3 (3.5-5.0) g/dL Calcium panel 04/03/18 Range/Units 08:37 Calcium 9.9 (8.4-10.2) mg/dL Albumin 4.3 (3.5-5.0) g/dL Pituitary panel 04/03/18 Range/Units 08:37 Sodium 141 (137-145) mmol/L Potassium 3.5 (3.5-5.1) mmol/L Chloride 103 (98-107) mmol/L Carbon Dioxide 27 (22-30) mmol/L BUN 28 H (7-17) mg/dL Creatinine 0.74 (0.52-1.04) mg/dL Glucose 98 (74-99) mg/dL Calcium 9.9 (8.4-10.2) mg/dL Adrenal panel 04/03/18 Range/Units 08:37 Sodium 141 (137-145) mmol/L Potassium 3.5 (3.5-5.1) mmol/L Chloride 103 (98-107) mmol/L Carbon Dioxide 27 (22-30) mmol/L BUN 28 H (7-17) mg/dL Creatinine 0.74 (0.52-1.04) mg/dL Glucose 98 (74-99) mg/dL Calcium 9.9 (8.4-10.2) mg/dL Total Bilirubin 0.7 (0.2-1.3) mg/dL AST 31 (14-36) U/L ALT 46 (9-52) U/L Alkaline Phosphatase 113 (38-126) U/L Total Protein 7.6 (6.3-8.2) g/dL Albumin 4.3 (3.5-5.0) g/dL Assessment and Plan Plan: Benefits and risks described for surgery.
[2018-04-03] MEDS ORDERED: IV FLUID CONTINUATION 1,000 ML IV ONE (14:09)
[2018-04-03] MEDS: ONDANSETRON 4 MG/2 ML VIAL IVP PRN ×2 (14:28→21:39)
[2018-04-03] MEDS ORDERED: fentaNYL (PF) 50 MCG/ML 2 ML AMP IV ONE (14:28)
[2018-04-03] MEDS ORDERED: MIDAZOLAM 2 MG/2 ML VIAL IV ONE (14:28)
[2018-04-03] MEDS ORDERED: DEXAMETHASONE SOD PHOS (MDV) 100 MG/10 ML VIAL ONE (16:55)
[2018-04-03] MEDS ORDERED: LIDOCAINE 1% INJ 10MG/ML (20 ML MDV) ONE (16:55)
[2018-04-03] MEDS ORDERED: ePHEDrine SULFATE/0.9% NACL/PF 50 MG/5 ML SYRINGE IV ONE (16:55)
[2018-04-03] MEDS ORDERED: NEOSTIGMINE 1 MG/ML 10 ML VIAL ONE (16:55)
[2018-04-03] MEDS ORDERED: fentaNYL (PF) 50 MCG/ML 2 ML AMP ONE (16:55)
[2018-04-03] MEDS ORDERED: MIDAZOLAM 2 MG/2 ML VIAL ONE (16:55)
[2018-04-03] MEDS ORDERED: PROPOFOL 10 MG/ML 20 ML VIAL IV ONE (16:55)
[2018-04-03] MEDS ORDERED: ceFAZolin 1,000 MG VIAL ONE (16:55)
[2018-04-03] MEDS ORDERED: HEPARIN SODIUM,PORCINE 5,000 UNIT/ML 1 ML VIAL ONE (16:55)
[2018-04-03] MEDS ORDERED: GLYCOPYRROLATE 0.2 MG/ML 2 ML VIAL ONE (16:55)
[2018-04-03] MEDS ORDERED: ROCURONIUM BROMIDE 10 MG/ML 10 ML VIAL IV ONE (16:55)
[2018-04-03] MEDS ORDERED: SUCCINYLCHOLINE CHLORIDE VIAL 200 MG/10 ML VIAL IV ONE (16:55)
[2018-04-03] MEDS ORDERED: HEPARIN SODIUM,PORCINE 5,000 UNIT/ML 1 ML VIAL SQ STA (17:00)
[2018-04-03] MEDS ORDERED: ceFAZolin IN SWFI 2 GM/20 ML SYRINGE IVP STA (17:00)
[2018-04-03] MEDS ORDERED: BUPIVACAIN-EPI 0.25%-1:200,000 30 ML VIAL SQ ONE (17:21)
[2018-04-03] MEDS ORDERED: LACTATED RINGERS 1,000 ML IV ONE (17:34)
--- NOTE | 2018-04-03 18:08 | P.OP ---
Date of Procedure: 04/03/18 Description of Procedure: SURGEON: MITCH KIRBY MD STUDENT COUNSELLOR: None. PREOPERATIVE DIAGNOSES: 1. Right lower quadrant abdominal pain. 2. Acute appendicitis. 3. Leukocytosis. 4. Hypertensive heart disease 5. Obesity due to excess calories, BMI 31.9 POSTOPERATIVE DIAGNOSES: 1. Right lower quadrant abdominal pain. 2. Acute appendicitis with periappendicitis, nonruptured 3. Leukocytosis. 4. Hypertensive heart disease 5. Obesity due to excess calories, BMI 31.9 6. Right inguinal hernia. PROCEDURES PERFORMED: 1. Diagnostic laparoscopy. 2. Laparoscopic appendectomy. ANESTHESIA: General with 30 mL 0.25% Marcaine with epinephrine. ESTIMATED BLOOD LOSS: 5 mL. SPECIMENS REMOVED: Appendix COMPLICATIONS: None. OPERATIVE FINDINGS: 1. Acute appendicitis with periappendicitis 2. Right inguinal hernia, indirect, small 3. Unremarkable small bowel and terminal ileum. 4. Colonic dilation involving the descending and sigmoid colon INDICATIONS: The patient is a 47-year-old female who presents with less 24-hour history of right lower quadrant abdominal pain. She reported nausea, including anorexia. CT of the abdomen and pelvis was obtained demonstrating findings consistent with acute appendicitis. Benefits and risks, including possibility of open technique were described at length. Informed consent was obtained. DESCRIPTION OR PROCEDURE: Patient was brought to the operating room, laid in supine position. After general induction, the abdomen was prepped and draped in standard sterile fashion. Prior to incision, a timeout protocol was confirmed with surgical team regarding patient's name including procedure to be performed. Additionally, bilateral SCDs including heparin 5000 units was administered with IV antibiotics. A transverse infraumbilical incision was made after localizing the skin with anesthetic. A 0 degree 12 mm laparoscopic trocar entry was performed and entered into the peritoneal cavity. The abdomen was insufflated to 15 mmHg of pressure, which she tolerated well. Diagnostic laparoscopy demonstrated no injury to bowel, viscera or mesentery. Additionally, along the pelvis was free fluid with mild turbidity. A 5 mm port was placed just above the pubis. A separate 5 mm port was placed at the left lower quadrant all under direct visualization. The patient was placed in Trendelenburg position with the right side up. The base of the cecum was without inflammation. The appendix was dilated with periappendicitis consistent with acute appendicitis. A 45 mm Endo JAZMÍN echelon stapler was fired across using a arce vascular load. Mild arterial bleed was cauterized. The specimen was removed from the abdominal cavity with a [place] through the 12 mm trocar. All instruments and pneumoperitoneum were evacuated from the abdominal cavity. The fascial defect was less than 8 mm in size. A total of 30 mL 0.25% Marcaine with epinephrine was infiltrated in all wounds for postop analgesia. Exofin was applied to the skin after reapproximating the incisions with 4-0 Monocryl as described. Optifoam was placed along the left lower quadrant incision. At the end of the procedure, needle, sponge, and instrument count was verified correct by neurosurgical nurse. The patient had tolerated the procedure well, was taken to the postanesthesia care unit in stable condition. Intraoperative abdominal films were described and discussed with her family who were overall pleased with her level of care.
[2018-04-03] MEDS ORDERED: METOCLOPRAMIDE 5 MG/ML 2 ML VIAL IVP PRN (18:09)
[2018-04-03] MEDS ORDERED: ONDANSETRON 4 MG/2 ML VIAL IVP ONE (18:14)
[2018-04-03] MEDS: HYDROmorphone 1 MG/ML 1 ML SYRINGE IVP ONE ×2 (18:14→18:22)
[2018-04-03] MEDS ORDERED: diphenhydrAMINE 50 MG/ML 1 ML VIAL IVP ONE (18:20)
[2018-04-03] MEDS ORDERED: HYDROmorphone 1 MG/ML 1 ML SYRINGE IVP ONE (18:27)
[2018-04-03] MEDS ORDERED: diphenhydrAMINE 50 MG/ML 1 ML VIAL IVP STA (18:39)
[2018-04-03] MEDS: PIPERACILLIN-TAZOBACTAM 3.375 GM in SODIUM CHLORIDE 0.9% 100 ML IVPB SCH (20:14)
[2018-04-03] MEDS ORDERED: traZODone HCL 50 MG TAB PO SCH (21:00)
[2018-04-03] MEDS: KETOROLAC 30 MG/ML 1 ML VIAL IVP SCH ×2 (22:31→23:44)
[2018-04-04] MEDS: PIPERACILLIN-TAZOBACTAM 3.375 GM in SODIUM CHLORIDE 0.9% 100 ML IVPB SCH ×2 (01:52→08:35)
[2018-04-04] MEDS: KETOROLAC 30 MG/ML 1 ML VIAL IVP SCH ×2 (06:30→12:49)
[2018-04-04] MEDS ORDERED: LEVOTHYROXINE 88 MCG TAB PO SCH (06:30)
[2018-04-04 08:15] VITALS: BP 111/69; PULSE 82; RESP 16; TEMP 97.7
[2018-04-04] MEDS ORDERED: CHLORTHALIDONE PO SCH (09:00)
[2018-04-04] MEDS ORDERED: CHLORTHALIDONE 25 MG TAB PO SCH (09:00)
[2018-04-04] MEDS ORDERED: ATENOLOL 50 MG TAB PO SCH (09:00)
[2018-04-04] MEDS ORDERED: ATENOLOL PO SCH (09:00)
[2018-04-04 10:08] LABS: Basophils % (A) 0 %; Eosinophils % (A) 0 %; HCT 38.2 % (34.0-46.0); HGB 12.9 gm/dL (11.4-16.0); Lymphocytes # (A) 0.9 k/uL (1.0-4.8); Lymphocytes % (A) 10 %; MCH 30.6 pg (25.0-35.0); MCHC 33.7 g/dL (31.0-37.0); MCV 90.9 fL (80.0-100.0); Mean Platelet Volume 7.8; Monocytes # (A) 0.4 k/uL (0-1.0); Monocytes % (A) 4 %; Neutrophils # (A) 7.6 k/uL (1.3-7.7); Neutrophils % (A) 85 %; Platelet Count 230 k/uL (150-450); RDW 12.3 % (11.5-15.5)
[2018-04-04 10:25] LABS: ALT 36 U/L (9-52); AST 21 U/L (14-36); Albumin 3.5 g/dL (3.5-5.0); Alkaline Phosphatase 98 U/L (38-126); Anion Gap 9 mmol/L; Blood Urea Nitrogen 19 mg/dL (7-17); Calcium 9.4 mg/dL (8.4-10.2); Carbon Dioxide 29 mmol/L (22-30); Chloride 102 mmol/L (98-107); Glucose 117 mg/dL (74-99); Potassium 3.5 mmol/L (3.5-5.1); Sodium 140 mmol/L (137-145); Total Bilirubin 0.5 mg/dL (0.2-1.3); Total Protein 6.3 g/dL (6.3-8.2)
--- NOTE | 2018-04-04 12:44 | P.DS ---
Providers Date of admission: 04/03/18 10:44 Expected date of discharge: 04/04/18 Attending physician: Eri Guadarrama Primary care physician: [facility] Hospital Course: 47-year-old female presented to the emergency room to be evaluated for right lower quadrant abdominal pain with a nausea sensation sudden onset no prior episodes CAT scan of the abdomen and pelvis obtained in the emergency room showed acute appendicitis nonruptured. Patient underwent diagnostic laparoscopy with laparoscopic appendectomy for acute appendicitis with. periaAppendicitis nonruptured the day of discharge no postop events. Patient had been up ambulating in the [place] plain Tylenol is effective for pain control. Patient was appropriate for discharge. Impression discharge diagnoses Present on admission sudden onset right lower quadrant abdominal pain suspect due to acute appendicitis Leukocytosis present on admission suspect due to acute appendicitis Acute appendicitis with periappendicitis nonruptured Obesity BMI 31 Right inguinal hernia indirect small History of sarcoidosis in remission Recent January dobutamine stress echo no evidence of reversible ischemia Multiple drug ALLERGY The above impression and plan of care have been discussed and directed by signing physician. Janet Barry nurse practitioner acting as scribe for signing physician. Patient Condition at Discharge: Stable Plan - Discharge Summary Discharge Rx Participant: No New Discharge Prescriptions: New Ibuprofen [Motrin] 400 mg PO Q6HR PRN #30 tab PRN Reason: Mild Pain Continue Potassium Chloride [Klor-Con Packets] 20 meq PO TID Multivitamins, Thera [Multivitamin (formulary)] 1 tab PO DAILY Cholecalciferol [Vitamin D3] 1,000 unit PO DAILY Aspirin EC [Ecotrin Low Dose] 81 mg PO DAILY Levothyroxine Sodium [Synthroid] 175 mcg PO DAILY Atenolol/Chlorthalidone [Atenolol-Chlorthalidone 100-25] 1 tab PO DAILY traZODone HCL [Desyrel] 50 mg PO DAILY Discharge Medication List Multivitamins, Thera [Multivitamin (formulary)] 1 tab PO DAILY 01/06/16 [History ] Potassium Chloride [Klor-Con Packets] 20 meq PO TID 01/06/16 [History] Aspirin EC [Ecotrin Low Dose] 81 mg PO DAILY 01/31/18 [History] Atenolol/Chlorthalidone [Atenolol-Chlorthalidone 100-25] 1 tab PO DAILY [History] Cholecalciferol [Vitamin D3] 1,000 unit PO DAILY 01/31/18 [History] Levothyroxine Sodium [Synthroid] 175 mcg PO DAILY 01/31/18 [History] traZODone HCL [Desyrel] 50 mg PO DAILY 04/03/18 [History] Ibuprofen [Motrin] 400 mg PO Q6HR PRN #30 tab 04/04/18 [Rx] Follow up Appointment(s)/Referral(s): Frankie Miller MD [Primary Care Provider] - 1-2 days Eri Guadarrama MD [STAFF PHYSICIAN] - 1 Week Activity/Diet/Wound Care/Special Instructions: No tub bath for six weeks. Shower daily. No soaking No lifting over 10 pounds for the next 2 weeks. remove the plastic dressings as directed May use ice packs to surgical site. Motrin as needed for pain Discharge Disposition: HOME SELF-CARE
== END 2018-04-04 13:36 | disposition home or self-care (01) | DRG 343 ==
LOC: EC 08:19 → 3NMEDONC 10:44 → 6PED 11:31 → 4MS4W 04-04 00:27
PROVIDERS: ADMIT Surgery Plastic and Reconstructive Surgery; ATTEND Surgery Plastic and Reconstructive Surgery
PROC: 0DTJ4ZZ Resection of Appendix, Percutaneous Endoscopic Approach (ICD-10-PCS; principal; 2018-04-03 14:40)
DX: K35.80 Unspecified acute appendicitis (principal); E03.9 Hypothyroidism, unspecified; E66.09 Other obesity due to excess calories; I11.9 Hypertensive heart disease without heart failure; K40.90 Unilateral inguinal hernia, without obstruction or gangrene, not specified as recurrent; Z68.31 Body mass index [BMI] 31.0-31.9, adult; Z79.890 Hormone replacement therapy; Z79.899 Other long term (current) drug therapy; Z82.49 Family history of ischemic heart disease and other diseases of the circulatory system; Z87.442 Personal history of urinary calculi; Z88.5 Allergy status to narcotic agent; Z79.82 Long term (current) use of aspirin; Z88.2 Allergy status to sulfonamides
CPT/HCPCS: 36415; 74177; 80053; 81001; 81025; 82150; 83690; 85025; 88304; 93005; 96361; 96365; 96375; 96376; 99285

== ENCOUNTER → 2018-04-25 | Outpatient (CLI) | payer OTHER ==
--- NOTE | 2018-04-25 14:55 | MR ---
EXAMINATION TYPE: MR knee RT wo con DATE OF EXAM: 04/25/2018 COMPARISON: None HISTORY: Right knee pain TECHNIQUE: Multiplanar, multisequence imaging of the right knee is performed without IV contrast. FINDINGS: MEDIAL MENISCUS: There is some minimal linear signal within the posterior aspect of the posterior hor n medial meniscus could be related to some early degenerative change. Mild internal derangement type I can be considered. No communication with an articular surface is evident. Anterior horn appears int act. LATERAL MENISCUS: Anterior and posterior horns are intact without tear. CRUCIATE LIGAMENTS: The anterior and posterior cruciate ligaments are intact and unremarkable. COLLATERAL LIGAMENTS: The medial collateral ligament and lateral collateral ligament complex are inta ct and unremarkable. EXTENSOR MECHANISM: Visualized quadriceps and patellar tendons are intact. EFFUSION: Very minimal effusion is present. POPLITEAL CYST: No popliteal/mcconnell cyst. TRICOMPARTMENT SPACES: Joint spaces are preserved. CARTILAGE: Some thinning of the medial compartment articular cartilage is present. BONE MARROW SIGNAL: No focal abnormal marrow signal is appreciated. OTHER: No additional significant abnormality is appreciated. IMPRESSION: 1. Mild osteoarthritic degenerative change medial compartment right knee. 2. Linear signal posterior horn posterior aspect medial meniscus compatible some early degenerative t ype change or type I internal derangement.
== END ==
LOC: RADMRIMAIN 08:04
PROVIDERS: ATTEND Orthopaedic Surgery
DX: M17.11 Unilateral primary osteoarthritis, right knee (principal); M23.321 Other meniscus derangements, posterior horn of medial meniscus, right knee

== ENCOUNTER → 2018-06-10 | Outpatient (CLI) | payer OTHER ==
[2018-06-10 09:43] LABS: Basophils % (A) 1 %; Eosinophils # (A) 0.2 k/uL (0-0.7); Eosinophils % (A) 3 %; HCT 43.5 % (34.0-46.0); HGB 14.4 gm/dL (11.4-16.0); Lymphocytes % (A) 31 %; MCH 29.8 pg (25.0-35.0); MCHC 33.1 g/dL (31.0-37.0); MCV 89.9 fL (80.0-100.0); Mean Platelet Volume 7.5; Monocytes # (A) 0.5 k/uL (0-1.0); Monocytes % (A) 8 %; Neutrophils # (A) 3.6 k/uL (1.3-7.7); Neutrophils % (A) 56 %; Platelet Count 262 k/uL (150-450); RBC 4.84 m/uL (3.80-5.40); RDW 12.2 % (11.5-15.5); WBC 6.5 k/uL (3.8-10.6)
[2018-06-10 09:57] LABS: Potassium 3.4 mmol/L (3.5-5.1)
== END ==
LOC: LABPAT 07:59
PROVIDERS: ATTEND Orthopaedic Surgery
DX: Z01.812 Encounter for preprocedural laboratory examination (principal); M23.92 Unspecified internal derangement of left knee
CPT/HCPCS: 36415; 80051; 85025

== ENCOUNTER 2018-06-13 12:28 | Day surgery (SDC) | payer OTHER ==
[2018-06-11 15:29] VITALS: BMI 31.8
--- NOTE | 2018-06-12 16:43 | HP ---
HISTORY AND PHYSICAL DATE OF SURGERY: 06/13/2018 Diamond Cason is a 47-year-old patient seen with progressive right knee pain. Treatment options were discussed with her. She elected to proceed with arthroscopy. Consent was obtained. PAST MEDICAL HISTORY: 1. Hypothyroidism. 2. Hypertension. PAST SURGICAL HISTORY: 1. Appendectomy. 2. Hand surgery. DAILY MEDICATIONS: 1. Aspirin. 2. Potassium. 3. Synthroid. 4. Tenoretic. ALLERGIES: 1. BACTRIM. 2. VICODIN. 3. DEMEROL. SOCIAL HISTORY: She denies current tobacco use. PHYSICAL EVALUATION OF THE RIGHT KNEE: Range of motion is 0 to 120 degrees. There is a mild effusion present. Tenderness, medial joint line. Positive medial Jas's. Ligaments stable. Hip rotation without pain. Distal neurovascular exam is intact. RADIOGRAPHS: Radiographs of the right knee revealed mild medial compartment osteoarthritis. MRI of the right knee revealed an abnormal signal through the medial meniscus. IMPRESSION: 1. Internal derangement of right knee with meniscal tear. 2. Hypertension. 3. Hypothyroidism. PLAN: Right knee arthroscopy with partial meniscectomy and debridement. MMODL / IJN: [id number] /
[~2018-06-13 12:28] MED LIST: DEXAMETHASONE SOD PHOSPHATE 10 MG/ML 1 ML VIAL IV ONE; LACTATED RINGERS 1,000 ML IV SCH; LIDOCAINE 1% 20 ML VIAL (10MG/ML) FOR IV START INTRADERMA PRN; MIDAZOLAM (PF) 2 MG/2 ML VIAL IV PRN; ONDANSETRON 4 MG/2 ML VIAL IVP ONE; ceFAZolin IN SWFI 2 GM/20 ML SYRINGE IVP ONE; fentaNYL (PF) 50 MCG/ML 2 ML AMP IV PRN
[2018-06-13] MEDS ORDERED: PROPOFOL 10 MG/ML 20 ML VIAL IV ONE (15:04)
[2018-06-13] MEDS ORDERED: SUCCINYLCHOLINE CHLORIDE 100 MG/5 ML SYR IV ONE (15:04)
[2018-06-13] MEDS ORDERED: fentaNYL (PF) 50 MCG/ML 2 ML AMP ONE (15:04)
[2018-06-13] MEDS ORDERED: LIDOCAINE 1% INJ 10MG/ML (20 ML MDV) ONE (15:04)
[2018-06-13] MEDS ORDERED: MIDAZOLAM 2 MG/2 ML VIAL ONE (15:04)
[2018-06-13] MEDS ORDERED: BUPIVACAINE (PF) 0.25% 30 ML VIAL INTRAARTIC ONE (15:14)
[2018-06-13] MEDS ORDERED: LACTATED RINGERS 1,000 ML IV ONE (15:51)
--- NOTE | 2018-06-13 16:01 | P.OP ---
Date of Procedure: 06/13/18 Preoperative Diagnosis: Internal derangement right knee Postoperative Diagnosis: 1. Tear medial meniscus right knee 2. Grade 3 chondromalacia medial femoral condyle right knee 3. Medial plica right knee 4. Reactive synovitis medial, lateral and suprapatellar compartments right knee Procedure(s) Performed: 1. Arthroscopic partial medial meniscectomy right knee 2. Arthroscopic chondroplasty medial femoral condyle right knee 3. Arthroscopic resection medial plica right knee 4. Arthroscopic partial synovectomy medial, lateral and suprapatellar compartments right knee Anesthesia: EMEKAA, local Surgeon: Asher Treviño Estimated Blood Loss (ml): 10 Pathology: none sent Condition: stable Disposition: PACU Indications for Procedure: 47-year-old patient seen with progressive right knee pain. After treatment options were discussed, she elected to proceed with arthroscopy. Operative Findings: see description of procedure Description of Procedure: Patient was taken to the operative suite. Patient underwent a general anesthetic by the department of anesthesia. Patient was given preoperative antibiotics. The right lower extremity was placed in a well-padded arthroscopic leg patterson. The right leg was prepped and draped in the normal sterile orthopedic fashion. A lateral parapatellar and suprapatellar incision was made. Trochars were inserted. Arthroscopy was initiated. Suprapatellar pouch revealed diffuse thick reactive synovitis. The patellofemoral joint appeared to articulate congruently. There was grade 1 chondromalacia with no osteochondral tears present. The scope was guided into the medial gutter. There was a medial plica that did seem to impinge along the medial femoral condyle with range of motion. The scope was then guided into the medial compartment. A medial parapatellar incision was made. Trocar inserted followed by probe. There was a complex tear posterior horn medial meniscus. There were grade 3 chondromalacia changes of the medial femoral condyle some osteochondral tears present. There was thick reactive synovitis anteriorly. I performed a partial medial meniscectomy down to stable tissue. I performed a chondroplasty of the medial femoral condyle down to stable tissue. I performed a partial synovectomy decompressing the thick reactive synovitis. The residual meniscus was probed and found to be stable. The residual osteochondral surface of the medial femoral condyle was stable. There was good decompression of the synovitis. Scope and probe were then guided into the intercondylar notch. Cruciates were identified, probed and found to be stable. The scope and probe were then guided into lateral compartment. The lateral meniscus was probed and found to be stable. There were mild grade 1 chondromalacia changes lateral compartment. There was some reactive synovitis anteriorly. I introduced a motorized shaver and performed a partial synovectomy decompressing the synovitis. The scope was in guided back into the suprapatellar compartment. I introduced a motorized shaver into the super patellar compartment. I debrided piecemeal fragments of meniscus I encountered. I resected that medial plica. I performed a partial synovectomy. The shaver was removed. The knee was taken through range of motion and noted I noted complete resection of plica. There was good decompression synovitis. I took one more look on the entire knee, no residual debris. Instruments were now removed from the joint. The joint was infiltrated with .25% Marcaine. Steri-Strips were applied to the portal sites. Sterile dressings were applied. The patient was placed into a ERNESTINE hose. No tourniquet was utilized. The patient was awakened, transferred to a bed and taken to recovery stable satisfactory condition.
[2018-06-13 16:08] VITALS: TEMP 97
[2018-06-13] MEDS: HYDROmorphone 0.5 MG/0.5 ML SYRINGE IVP PRN ×2 (16:09→16:14)
[2018-06-13] MEDS ORDERED: diphenhydrAMINE 50 MG/ML 1 ML VIAL IVP ONE (16:24)
[2018-06-13 18:31] VITALS: BP 116/68; PULSE 80; RESP 20
== END 2018-06-13 18:20 | disposition home or self-care (01) ==
LOC: OR 12:28
PROVIDERS: ATTEND Orthopaedic Surgery
DX: S83.231A Complex tear of medial meniscus, current injury, right knee, initial encounter (principal); M67.51 Plica syndrome, right knee; M94.261 Chondromalacia, right knee; M17.11 Unilateral primary osteoarthritis, right knee; I10 Essential (primary) hypertension; E03.9 Hypothyroidism, unspecified; M65.88 Other synovitis and tenosynovitis, other site; D86.9 Sarcoidosis, unspecified; Z79.82 Long term (current) use of aspirin; Z79.1 Long term (current) use of non-steroidal anti-inflammatories (NSAID); Z79.890 Hormone replacement therapy; Z79.899 Other long term (current) drug therapy; Z88.1 Allergy status to other antibiotic agents; Z88.5 Allergy status to narcotic agent
CPT/HCPCS: 84132; 29881; 29876; J2250; J1200; J1100; J2405; J2001; J3010; J0330; J2704; J1170; J0690

== ENCOUNTER 2018-06-19 17:49 | Emergency (ER) | payer OTHER ==
[2018-06-19] MEDS ORDERED: traMADol 50 MG TAB PO STA (18:20)
--- NOTE | 2018-06-19 18:39 | ED ---
General Adult HPI - General Chief complaint: Extremity Injury, Lower Stated complaint: RT KNEE PAIN POST OP Time Seen by Provider: 06/19/18 18:04 Source: patient, RN notes reviewed Mode of arrival: ambulatory Limitations: no limitations - History of Present Illness Initial comments: 47-year-old female with a past medical history of chest pain, hypertension presents to the emergency department for a chief complaint of right posterior knee and calf pain. Patient states that this started yesterday. Patient states that about 6 days ago she had surgery to repair the meniscus on the right knee. She states this was done by Dr. Treviño. Patient currently taking aspirin. Patient states yesterday she started to notice calf swelling pain and redness. She denies any chest pain or shortness of breath. She denies fevers or chills.Patient has no other complaints at this time including shortness of breath, chest pain, abdominal pain, nausea or vomiting, headache, or visual changes. - Related Data Home Medications Medication Instructions Recorded Confirmed Multivitamins, Thera [Multivitamin 1 tab PO DAILY 01/06/16 06/19/18 (formulary)] Aspirin EC [Ecotrin Low Dose] 81 mg PO DAILY 01/31/18 06/19/18 Cholecalciferol [Vitamin D3] 4,000 unit PO DAILY 01/31/18 06/19/18 traZODone HCL [Desyrel] 50 mg PO HS 04/03/18 06/19/18 Atenolol/Chlorthalidone [Tenoretic 1 tab PO QAM 06/11/18 06/19/18 100 Tablet] Levothyroxine Sodium 200 mcg PO DAILY 06/19/18 06/19/18 Potassium Chloride [Klor-Con 20] 20 meq PO TID 06/19/18 06/19/18 Allergies Allergy/AdvReac Type Severity Reaction Status Date / Time acetaminophen [From Vicodin] Allergy Rash/Hives Verified 06/19/18 18:17 hydrocodone bitartrate Allergy Rash/Hives Verified 06/19/18 18:17 [From Vicodin] meperidine HCl [From Demerol] Allergy Rash/Hives Verified 06/19/18 18:17 sulfamethoxazole Allergy Rash/Hives Verified 06/19/18 18:17 [From Bactrim] trimethoprim [From Bactrim] Allergy Rash/Hives Verified 06/19/18 18:17 Review of Systems ROS Statement: Those systems with pertinent positive or pertinent negative responses have been documented in the HPI. ROS Other: All systems not noted in ROS Statement are negative. Past Medical History Past Medical History: Chest Pain / Angina, Hypertension, Thyroid Disorder Additional Past Medical History / Comment(s): Pt states she has sarcoidosis which has affected all her organs except for her brain and heart, kidney stones which pt passed, ovarian cysts, hypothyroid, UTIs, hypokalemia. History of Any Multi-Drug Resistant Organisms: None Reported Past Surgical History: Orthopedic Surgery, Uterine Ablation Additional Past Surgical History / Comment(s): R knee minisicus repair Past Anesthesia/Blood Transfusion Reactions: Motion Sickness Additional Past Anesthesia/Blood Transfusion Reaction / Comment(s): Pt states she has been itchy after general anesthesia. Past Psychological History: No Psychological Hx Reported Smoking Status: Never smoker Past Alcohol Use History: Rare Past Drug Use History: None Reported - Past Family History Father Family Medical History: Hypertension Additional Family Medical History / Comment(s): alcoholic Mother Family Medical History: Hypertension General Exam Limitations: no limitations General appearance: alert, in no apparent distress Head exam: Present: atraumatic, normocephalic, normal inspection Eye exam: Present: normal appearance, PERRL, EOMI. Absent: scleral icterus, conjunctival injection, periorbital swelling ENT exam: Present: normal exam, mucous membranes moist Neck exam: Present: normal inspection, full ROM. Absent: tenderness, meningismus, lymphadenopathy Respiratory exam: Present: normal lung sounds bilaterally. Absent: respiratory distress, wheezes, rales, rhonchi, stridor Cardiovascular Exam: Present: regular rate, normal rhythm, normal heart sounds. Absent: systolic murmur, diastolic murmur, rubs, gallop, clicks Extremities exam: Present: tenderness (Patient does have tenderness noted to the posterior knee without significant tenderness to the anterior knee in the right lower extremity), normal capillary refill (Capillary refill less than 2 seconds and DP pulse 2+ in the right lower extremity), calf tenderness (Patient does have tenderness to the right calf with positive Homans sign.), other ( Sensation intact in the right lower extremity). Absent: full ROM (Patient has 90 flexion and full extension of the right knee), joint swelling (No significant edema or erythema noted of the right knee.) Neurological exam: Present: alert, oriented X3, CN II-XII intact Psychiatric exam: Present: normal affect, normal mood Course Vital Signs 06/19/18 06/19/18 06/19/18 17:51 19:20 20:45 Temperature 98.2 F 98.6 F Pulse Rate 84 75 66 Respiratory 18 16 18 Rate Blood Pressure 119/64 116/84 115/74 O2 Sat by Pulse 99 94 L 97 Oximetry Medical Decision Making - Medical Decision Making 47-year-old female with a past medical history of hypertension presents to the emergency department for a chief of right posterior knee and calf pain. She states this started yesterday about 6 days postop for meniscal repair. She denies fevers or chills. On exam patient does have some minimal edema noted to the right calf but no appreciable erythema. Neurovascular intact. Ultrasound of the right lower extremity is negative for DVT. No significant erythema, patient has 90 flexion of the right knee. No evidence of infection at this time. Patient likely expressing postop pain. She has not been taking her pain medication at home. She will follow-up with Dr. Treviño tomorrow and return for worsening symptoms. Disposition Clinical Impression: Postoperative pain of knee Disposition: HOME SELF-CARE Condition: Good Instructions (If sedation given, give patient instructions): Knee Pain (ED) Additional Instructions: Please follow-up with your orthopedic surgeon tomorrow. Take Motrin and tramadol for pain. Return here to the emergency department if you have any worsening symptoms. Is patient prescribed a controlled substance at d/c from ED?: No Referrals: Frankie Miller MD [Primary Care Provider] - 1-2 days Asher Treviño DO [Doctor of Osteopathic Medicine] - 1-2 days Time of Disposition: 20:37
--- NOTE | 2018-06-19 18:58 | US ---
EXAMINATION TYPE: US venous doppler duplex LE RT DATE OF EXAM: 06/19/2018 6:48 PM COMPARISON: NONE CLINICAL HISTORY: Pain. right knee pain post surgery Jun 13, no h/o dvt SIDE PERFORMED: Right TECHNIQUE: The lower extremity deep venous system is examined utilizing real time linear array sonog james with graded compression, doppler sonography and color-flow sonography. VESSELS IMAGED: External Iliac Vein (EIV) Common Femoral Vein Deep Femoral Vein Greater Saphenous Vein * Femoral Vein Popliteal Vein Small Saphenous Vein * Proximal Calf Veins (* superficial vessels) Right Leg: Appears negative for DVT IMPRESSION: No evidence of deep venous thrombosis in the right leg.
[2018-06-19 20:46] VITALS: BP 115/74; PULSE 66; RESP 18; TEMP 98.6
== END 2018-06-19 20:46 | disposition home or self-care (01) ==
LOC: EC 17:49
DX: G89.18 Other acute postprocedural pain (principal); M25.561 Pain in right knee; I10 Essential (primary) hypertension; E03.9 Hypothyroidism, unspecified; Z79.82 Long term (current) use of aspirin; Z79.890 Hormone replacement therapy; Z79.899 Other long term (current) drug therapy; Z88.1 Allergy status to other antibiotic agents; Z88.2 Allergy status to sulfonamides; Z88.5 Allergy status to narcotic agent; Z88.6 Allergy status to analgesic agent; Z98.890 Other specified postprocedural states
CPT/HCPCS: 99283

== ENCOUNTER → 2019-03-06 | Day surgery (SDC) | payer OTHER ==
[~2019-03-06] MED LIST changes: -DEXAMETHASONE SOD PHOSPHATE 10 MG/ML 1 ML VIAL IV ONE; +HYDROmorphone 0.5 MG/0.5 ML SYRINGE IVP PRN; -LIDOCAINE 1% 20 ML VIAL (10MG/ML) FOR IV START INTRADERMA PRN; -MIDAZOLAM (PF) 2 MG/2 ML VIAL IV PRN; -ONDANSETRON 4 MG/2 ML VIAL IVP ONE; +ONDANSETRON 4 MG/2 ML VIAL IVP PRN; +PROPOFOL 10 MG/ML 20 ML VIAL IV ONE; -ceFAZolin IN SWFI 2 GM/20 ML SYRINGE IVP ONE; -fentaNYL (PF) 50 MCG/ML 2 ML AMP IV PRN
[2019-03-06 10:13] VITALS: RESP 16; TEMP 98.1
--- NOTE | 2019-03-06 10:50 | P.OP ---
Date of Procedure: 03/06/19 Preoperative Diagnosis: Screening colonoscopy Postoperative Diagnosis: Normal-appearing colon Procedure(s) Performed: Colonoscopy Anesthesia: MAC Surgeon: Fabiano Mittal Estimated Blood Loss (ml): 0 Condition: stable Disposition: same day Description of Procedure: Patient is brought to the Endo suite placed in left lateral decubitus position underwent sedation per department of anesthesia timeout performed correct patient correct procedure correct site was verified rectal exam was performed no gross abnormalities noted scope was placed through the rectum to the cecum with ease. The slowly withdrawn make sure to visualize all hunt of the colon on the way out no gross abnormalities noted the scope was retroflexed in the rectum no gross abnormalities are noted scope was completely withdrawn patient tolerated procedure well no apparent complications She will need a repeat colonoscopy in 10 years
[2019-03-06 11:11] VITALS: BP 121/79; PULSE 85
== END ==
LOC: ORWHC2ENDO 09:51
PROVIDERS: ATTEND Student in an Organized Health Care Education/Training Program
DX: Z12.11 Encounter for screening for malignant neoplasm of colon (principal); I25.10 Atherosclerotic heart disease of native coronary artery without angina pectoris; I10 Essential (primary) hypertension; D86.9 Sarcoidosis, unspecified; E07.9 Disorder of thyroid, unspecified; Z88.5 Allergy status to narcotic agent; Z88.1 Allergy status to other antibiotic agents; Z87.440 Personal history of urinary (tract) infections; Z79.899 Other long term (current) drug therapy; Z79.82 Long term (current) use of aspirin; Z79.890 Hormone replacement therapy; Z87.898 Personal history of other specified conditions
CPT/HCPCS: J2704; G0121; 45378

== ENCOUNTER → 2019-05-26 | Outpatient (CLI) | payer OTHER ==
--- NOTE | 2019-05-26 13:11 | XR ---
Left foot HISTORY: Pain, trauma 3 views of the left foot There is degenerative change at the metatarsophalangeal joint of the first digit. Soft tissue swellin g is present. Alignment is maintained, bone mineralization is normal. There is a plantar calcaneal sp ur. Small ossific densities at the proximal fifth metatarsal are well-corticated and not likely to be acute. There is an enthesophyte at insertion of the Achilles tendon. Impression: No fracture or dislocation.
== END | disposition home or self-care (01) ==
LOC: RADXRMAIN 08:59
PROVIDERS: ATTEND Internal Medicine
DX: M25.572 Pain in left ankle and joints of left foot (principal)

== ENCOUNTER 2020-07-12 18:58 | Emergency (ER) | payer OTHER ==
[2020-07-12 19:31] VITALS: PULSE 72; RESP 17; TEMP 98.1
--- NOTE | 2020-07-12 20:18 | XR ---
EXAMINATION TYPE: XR chest 2V DATE OF EXAM: 07/12/2020 COMPARISON: 12/09/2018 HISTORY: Cough and short of breath TECHNIQUE: FINDINGS: Heart and mediastinum are normal. Lungs are clear of consolidation. There are no hilar mass es. Costophrenic angles are clear. The bony thorax is intact. IMPRESSION: No active cardiopulmonary disease. No change.
--- NOTE | 2020-07-12 20:35 | ED ---
General Adult HPI - General Chief complaint: Shortness of Breath Stated complaint: wheezing, SOB Time Seen by Provider: 07/12/20 20:15 Source: patient Mode of arrival: ambulatory - History of Present Illness Initial comments: Dictation was produced using [employer]am[employer] dictation software. please excuse any grammatical, word or spelling errors. This patient was cared for during a federal and state declared state of emergency secondary to Covid 19 Chief Complaint: 49-year-old female past nuchal history of sarcoidosis presents with cough. History of Present Illness: 79-year-old female she states she is in remission with sarcoidosis. She does have a lung doctor. She has not been on any medications for sarcoidosis in several months. She did have a sinus infection starting last month. She states that she is overall recovered however she says she has a nonproductive cough that has been lingering since sinus symptoms. States that her was exposed to individuals with coronavirus. She denies any constitutional symptoms. She denies any dyspnea.. The ROS documented in this emergency department record has been reviewed and confirmed by me. Those systems with pertinent positive or negative responses have been documented in the HPI. All other systems are other negative and/or noncontributory. PHYSICAL EXAM: General Impression: Alert and oriented x3, not in acute distress HEENT: Normocephalic atraumatic, extra-ocular movements intact, pupils equal and reactive to light bilaterally, mucous membranes moist. Cardiovascular: Heart regular rate and rhythm Chest: Able to complete full sentences, no retractions, no tachypnea, lungs clear to auscultation bilaterally. Abdomen: abdomen soft, non-tender, non-distended, no organomegaly Musculoskeletal: Pulses present and equal in all extremities, no peripheral edema Motor: no focal deficits noted Neurological: CN II-XII grossly intact, no focal motor or sensory deficits noted Skin: Intact with no visualized rashes Psych: Normal affect and mood ED course: 49-year-old female presents with persistent cough. She is here today requesting an x-ray. Vital signs upon arrival are within acceptable limits. Chest x-ray is nonacute. Covid 19 is negative. Patient be discharged. - Related Data Home Medications Medication Instructions Recorded Confirmed Multivitamins, Thera [Multivitamin 1 tab PO DAILY 01/06/16 03/04/19 (formulary)] Aspirin EC [Ecotrin Low Dose] 81 mg PO DAILY 10/04/18 11/05/19 Cholecalciferol [Vitamin D3 (25 4,000 unit PO DAILY 01/31/18 03/04/19 Mcg = 1000 Iu)] traZODone HCL [Desyrel] 50 mg PO HS PRN 04/03/18 03/04/19 Levothyroxine Sodium 200 mcg PO QAM 06/19/18 03/04/19 Potassium Chloride [Klor-Con 20] 20 meq PO TID 06/19/18 03/04/19 atenoloL [Atenolol] 25 mg PO QAM 03/04/19 03/04/19 Allergies Allergy/AdvReac Type Severity Reaction Status Date / Time amoxicillin [From Augmentin] Allergy Dyspnea Verified 07/12/20 19:32 clavulanic acid Allergy Dyspnea Verified 07/12/20 19:32 [From Augmentin] hydrocodone bitartrate Allergy Rash/Hives Verified 03/06/19 10:09 [From Vicodin] meperidine HCl [From Demerol] Allergy Rash/Hives Verified 03/06/19 10:09 sulfamethoxazole Allergy Rash/Hives Verified 03/06/19 10:09 [From Bactrim] trimethoprim [From Bactrim] Allergy Rash/Hives Verified 03/06/19 10:09 Review of Systems ROS Statement: Those systems with pertinent positive or pertinent negative responses have been documented in the HPI. ROS Other: All systems not noted in ROS Statement are negative. Past Medical History Past Medical History: Chest Pain / Angina, Hypertension, Thyroid Disorder Additional Past Medical History / Comment(s): Pt states she has sarcoidosis 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 Kidney stones which pt passed. Ovarian cysts. UTIs. Hypokalemia. History of Any Multi-Drug Resistant Organisms: None Reported Past Surgical History: Orthopedic Surgery, Uterine Ablation Additional Past Surgical History / Comment(s): R knee minisicus repair Past Anesthesia/Blood Transfusion Reactions: Motion Sickness Additional Past Anesthesia/Blood Transfusion Reaction / Comment(s): Pt states she has been itchy after general anesthesia. Past Psychological History: Anxiety Smoking Status: Never smoker Past Alcohol Use History: Rare Past Drug Use History: None Reported - Past Family History Father Family Medical History: Hypertension Additional Family Medical History / Comment(s): alcoholic Mother Family Medical History: Hypertension Course Vital Signs 07/12/20 19:28 Temperature 98.1 F Pulse Rate 72 Respiratory 17 Rate Blood Pressure 131/83 O2 Sat by Pulse 97 Oximetry Medical Decision Making - Lab Data Lab Results 07/12/20 Range/Units 20:30 Coronavirus (PCR) Not Detected (Not Detectd) Disposition Clinical Impression: Cough Disposition: HOME SELF-CARE Condition: Good Instructions (If sedation given, give patient instructions): Chronic Cough (ED) Is patient prescribed a controlled substance at d/c from ED?: No Referrals: Fabien Rojas MD [Primary Care Provider] - 1-2 days Time of Disposition: 20:45
[2020-07-12 21:14] VITALS: BP 142/86
== END 2020-07-12 21:13 | disposition home or self-care (01) ==
LOC: EC 18:58
DX: R05 Cough (principal); D86.9 Sarcoidosis, unspecified; Z20.822 Contact with and (suspected) exposure to COVID-19; I10 Essential (primary) hypertension; E07.9 Disorder of thyroid, unspecified; F41.9 Anxiety disorder, unspecified; I25.2 Old myocardial infarction; Z88.0 Allergy status to penicillin; Z88.5 Allergy status to narcotic agent; Z88.2 Allergy status to sulfonamides; Z88.1 Allergy status to other antibiotic agents; Z79.82 Long term (current) use of aspirin; Z79.899 Other long term (current) drug therapy
CPT/HCPCS: 71046; 87635; 99285

== ENCOUNTER 2020-07-29 10:54 | Emergency (ER) | payer OTHER ==
[2020-07-29 11:03] VITALS: RESP 18; TEMP 98.4
--- NOTE | 2020-07-29 11:04 | ED ---
General Adult HPI - General Source: patient, RN notes reviewed Mode of arrival: ambulatory Limitations: no limitations <Bello Segovia - Last Filed: 07/29/20 11:03> <Gibson Barros - Last Filed: 07/30/20 11:28> - General Stated complaint: Fever, Dehydration Time Seen by Provider: 07/29/20 11:00 - History of Present Illness Initial comments: This is a 49-year-old male presents emergency Department chief complaint of possible covid. Patient has multiple family members were positive currently. Patient states that she feels dehydrated. Patient states that she's had a cough, runny nose, achiness, fever. She's had decreased oral intake no vomiting no diarrhea. Patient does have a history of sarcoidosis but does not take any immunologic medications. Patient states she does have history of hypertension hypothyroidism. (Bello Segovia) - Related Data Home Medications Medication Instructions Recorded Confirmed Multivitamins, Thera [Multivitamin 1 tab PO DAILY 01/06/16 07/29/20 (formulary)] Aspirin EC [Ecotrin Low Dose] 81 mg PO DAILY 01/31/18 07/29/20 traZODone HCL [Desyrel] 50 mg PO HS PRN 04/03/18 07/29/20 Potassium Chloride [Klor-Con 20] 20 meq PO TID 06/19/18 07/29/20 atenoloL [Atenolol] 25 mg PO DAILY 03/04/19 07/29/20 Cholecalciferol (Vitamin D3) 4,000 unit PO DAILY 07/29/20 07/29/20 [Vitamin D3 (4,000 Iu)] Estradiol Cream [Estrace Cream 1 gm VAGINAL FR 07/29/20 07/29/20 0.01%] Levothyroxine Sodium [Synthroid] 175 mcg PO DAILY 07/29/20 07/29/20 buPROPion XL [Wellbutrin Xl] 300 mg PO DAILY 07/29/20 07/29/20 Allergies Allergy/AdvReac Type Severity Reaction Status Date / Time amoxicillin [From Augmentin] Allergy Dyspnea Verified 07/29/20 14:04 clavulanic acid Allergy Dyspnea Verified 07/29/20 14:04 [From Augmentin] hydrocodone bitartrate Allergy Rash/Hives Verified 07/29/20 14:04 [From Vicodin] meperidine HCl [From Demerol] Allergy Rash/Hives Verified 07/29/20 14:04 sulfamethoxazole Allergy Rash/Hives Verified 07/29/20 14:04 [From Bactrim] trimethoprim [From Bactrim] Allergy Rash/Hives Verified 07/29/20 14:04 Review of Systems ROS Other: All systems not noted in ROS Statement are negative. <Bello Segovia - Last Filed: 07/29/20 11:03> ROS Other: All systems not noted in ROS Statement are negative. <Gibson Barros - Last Filed: 07/30/20 11:28> ROS Statement: Those systems with pertinent positive or pertinent negative responses have been documented in the HPI. Past Medical History Past Medical History: Chest Pain / Angina, Hypertension, Thyroid Disorder Additional Past Medical History / Comment(s): Pt states she has sarcoidosis 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 Kidney stones which pt passed. Ovarian cysts. UTIs. Hypokalemia. History of Any Multi-Drug Resistant Organisms: None Reported Past Surgical History: Orthopedic Surgery, Uterine Ablation Additional Past Surgical History / Comment(s): R knee minisicus repair Past Anesthesia/Blood Transfusion Reactions: Motion Sickness Additional Past Anesthesia/Blood Transfusion Reaction / Comment(s): Pt states she has been itchy after general anesthesia. Past Psychological History: Anxiety Smoking Status: Never smoker Past Alcohol Use History: Rare Past Drug Use History: None Reported - Past Family History Father Family Medical History: Hypertension Additional Family Medical History / Comment(s): alcoholic Mother Family Medical History: Hypertension <Bello Segovia - Last Filed: 07/29/20 11:03> General Exam General appearance: alert, in no apparent distress Head exam: Present: atraumatic, normocephalic, normal inspection Neck exam: Present: normal inspection. Absent: tenderness, meningismus, lymphadenopathy Respiratory exam: Present: normal lung sounds bilaterally. Absent: respiratory distress, wheezes, rales, rhonchi, stridor Cardiovascular Exam: Present: regular rate, normal rhythm, normal heart sounds. Absent: systolic murmur, diastolic murmur, rubs, gallop, clicks <Bello Segovia - Last Filed: 07/29/20 11:03> Limitations: no limitations General appearance: alert, in no apparent distress, obese Head exam: Present: atraumatic, normocephalic, normal inspection Eye exam: Present: normal appearance, PERRL, EOMI Pupils: Present: normal accommodation ENT exam: Present: normal exam, normal oropharynx, mucous membranes dry Neck exam: Present: normal inspection, full ROM. Absent: tenderness, meningismus Respiratory exam: Present: normal lung sounds bilaterally. Absent: respiratory distress, wheezes, rhonchi, stridor, chest wall tenderness, accessory muscle use Cardiovascular Exam: Present: regular rate, normal rhythm, normal heart sounds GI/Abdominal exam: Present: soft. Absent: distended, tenderness, guarding, rebound Extremities exam: Present: normal inspection, full ROM, normal capillary refill. Absent: tenderness Back exam: Present: normal inspection, full ROM. Absent: tenderness Neurological exam: Present: alert, oriented X3, normal gait Psychiatric exam: Present: normal affect, normal mood Skin exam: Present: warm, dry, intact, normal color <Gibson Barros - Last Filed: 07/30/20 11:28> Course Vital Signs 07/29/20 07/29/20 07/29/20 11:00 13:03 14:40 Temperature 98.4 F 98.4 F Pulse Rate 87 75 Respiratory 18 18 18 Rate Blood Pressure 104/74 122/74 O2 Sat by Pulse 96 98 Oximetry Medical Decision Making <Gibson Barros - Last Filed: 07/30/20 11:28> - Medical Decision Making 49-year-old female presents to the emergency department with a chief complaint of cough and congestion. Family members have recently been diagnosed with Covid and now she is experiencing myalgias fatigue and decreased appetite. Patient feels dehydrated. On physical examination, there is dry mucous membranes. Patient did test positive for Carona virus, however she does not fit criteria for monoclonal antibody. No chest pain or shortness of breath. Patient was given 1.5 L of IV fluids. On reevaluation, patient does report significant i mprovement in her symptoms. I advised her to go home and quarantine, take Tylenol for fever. Strict return parameters were thoroughly discussed the patient was upsetting agreeable. Case discussed with Dr. Hilton. (Gibson Barros) - Lab Data Lab Results 07/29/20 Range/Units 11:04 Coronavirus (PCR) Detected A (Not Detectd) Disposition <Bello Segovia - Last Filed: 07/29/20 11:03> Is patient prescribed a controlled substance at d/c from ED?: No Time of Disposition: 14:19 <Gibson Barros - Last Filed: 07/30/20 11:28> Clinical Impression: COVID-19, Dehydration Disposition: HOME SELF-CARE Condition: Stable Instructions (If sedation given, give patient instructions): Coronavirus Disease 2019 (COVID-19) Additional Instructions: Please return to the Emergency Department if symptoms worsen or any other concerns. Referrals: Fabien Rojas MD [Primary Care Provider] - 1-2 days
[2020-07-29] MEDS ORDERED: SODIUM CHLORIDE 0.9% 500 ML 500 ML IV STA (13:00)
[2020-07-29] MEDS ORDERED: SODIUM CHLORIDE 0.9% 1,000 ML IV STA (13:00)
[2020-07-29 14:40] VITALS: BP 122/74; PULSE 75
== END 2020-07-29 14:40 | disposition home or self-care (01) ==
LOC: EC 10:54
DX: U07.1 COVID-19 (principal); E86.0 Dehydration; F41.9 Anxiety disorder, unspecified; I20.9 Angina pectoris, unspecified; I10 Essential (primary) hypertension; E07.9 Disorder of thyroid, unspecified; Z79.82 Long term (current) use of aspirin; Z79.890 Hormone replacement therapy; Z79.899 Other long term (current) drug therapy; Z88.0 Allergy status to penicillin; Z88.1 Allergy status to other antibiotic agents; Z88.2 Allergy status to sulfonamides; Z88.5 Allergy status to narcotic agent; Z88.8 Allergy status to other drugs, medicaments and biological substances
CPT/HCPCS: 87635; 96360; 99284

== ENCOUNTER 2020-08-02 19:38 | Inpatient (IN) | payer OTHER ==
[2020-08-02] MEDS ORDERED: SODIUM CHLORIDE 0.9% 500 ML 500 ML IV STA (20:22)
--- NOTE | 2020-08-02 20:24 | ED ---
SOB HPI - General Chief Complaint: Shortness of Breath Stated Complaint: JUN, Covid+ Time Seen by Provider: 08/02/20 19:45 Source: patient, EMS Mode of arrival: EMS Limitations: no limitations - History of Present Illness Initial Comments: 49-year-old female patient presents to the emergency room in respiratory distress stating she was unable to get enough air. EMS the patient on 3 L nasal cannula related to hypoxia 90% and started an IV and given IV fluid bolus. Patient has been sick since July 23, had 3 negative Covid tests, then tested positive on July 29. Patient has been unable to take her daily medications of Synthroid atenolol and Wellbutrin the past 4 days. has had a temperature as high as 104 at home Patient denies nausea vomiting diarrhea, just shortness of breath which is worse with exertion. Patient desatu rated to 89% when attempted to wean from oxygen upon arrival to room. Patient denies chest pain or leg swelling MD Complaint: shortness of breath -: days(s) (10) Improves With: nothing Worsens With: exertion Known History Of: other (sarcoidosis, htn) Context: other (covid + 07/29/2020) Treatments Prior to Arrival: other (iv, iv fluids) - Related Data Home Medications Medication Instructions Recorded Confirmed Multivitamins, Thera [Multivitamin 1 tab PO DAILY 01/06/16 08/02/20 (formulary)] traZODone HCL [Desyrel] 50 mg PO HS PRN 04/03/18 08/02/20 Potassium Chloride [Klor-Con 20] 20 meq PO TID 06/19/18 08/02/20 atenoloL [Atenolol] 25 mg PO DAILY 03/04/19 08/02/20 Levothyroxine Sodium [Synthroid] 175 mcg PO DAILY 07/29/20 08/02/20 buPROPion XL [Wellbutrin Xl] 300 mg PO DAILY 07/29/20 08/02/20 Ascorbic Acid [Vitamin C] 1,000 mg PO DAILY 08/02/20 08/02/20 Cholecalciferol (Vitamin D3) 125 mcg PO DAILY 08/02/20 08/02/20 [Vitamin D3 (5000 Iu)] Fluticasone Nasal [place] [Flonase 1 spray EA NOSTRIL DAILY 08/02/20 08/02/20 Nasal [place]] Allergies Allergy/AdvReac Type Severity Reaction Status Date / Time amoxicillin [From Augmentin] Allergy Dyspnea Verified 08/02/20 22:04 clavulanic acid Allergy Dyspnea Verified 08/02/20 22:04 [From Augmentin] hydrocodone bitartrate Allergy Rash/Hives Verified 08/02/20 22:04 [From Vicodin] meperidine HCl [From Demerol] Allergy Rash/Hives Verified 08/02/20 22:04 sulfamethoxazole Allergy Rash/Hives Verified 08/02/20 22:04 [From Bactrim] trimethoprim [From Bactrim] Allergy Rash/Hives Verified 08/02/20 22:04 Review of Systems ROS Statement: Those systems with pertinent positive or pertinent negative responses have been documented in the HPI. ROS Other: All systems not noted in ROS Statement are negative. Past Medical History Past Medical History: Chest Pain / Angina, Hypertension, Thyroid Disorder Additional Past Medical History / Comment(s): Pt states she has sarcoidosis 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 Kidney stones which pt passed. Ovarian cysts. UTIs. Hypokalemia. History of Any Multi-Drug Resistant Organisms: None Reported Past Surgical History: Orthopedic Surgery, Uterine Ablation Additional Past Surgical History / Comment(s): R knee minisicus repair Past Anesthesia/Blood Transfusion Reactions: Motion Sickness Additional Past Anesthesia/Blood Transfusion Reaction / Comment(s): Pt states she has been itchy after general anesthesia. Past Psychological History: Anxiety Smoking Status: Never smoker Past Alcohol Use History: Rare Past Drug Use History: None Reported - Past Family History Father Family Medical History: Hypertension Additional Family Medical History / Comment(s): alcoholic Mother Family Medical History: Hypertension General Exam Limitations: no limitations General appearance: alert, in no apparent distress Head exam: Present: normocephalic, normal inspection Eye exam: Present: normal appearance, PERRL, EOMI. Absent: scleral icterus, conjunctival injection, periorbital swelling ENT exam: Present: normal exam, mucous membranes moist Neck exam: Present: normal inspection, full ROM. Absent: tenderness, meningismus, lymphadenopathy Respiratory exam: Present: rales (bases) Cardiovascular Exam: Present: regular rate, normal rhythm, normal heart sounds. Absent: systolic murmur, diastolic murmur, rubs, gallop, clicks GI/Abdominal exam: Present: soft, normal bowel sounds. Absent: distended, tenderness, guarding, rebound, rigid Extremities exam: Present: normal inspection, full ROM, normal capillary refill. Absent: tenderness, pedal edema, joint swelling, calf tenderness Back exam: Present: normal inspection. Absent: tenderness, CVA tenderness (R), CVA tenderness (L) Neurological exam: Present: alert, oriented X3 Psychiatric exam: Present: anxious Skin exam: Present: warm, dry, intact, normal color. Absent: rash Course Vital Signs 08/02/20 08/02/20 08/02/20 19:44 19:50 22:17 Temperature 99.0 F 98.9 F Pulse Rate 88 90 Respiratory 20 18 18 Rate Blood Pressure 134/68 128/78 O2 Sat by Pulse 95 93 L Oximetry - Reevaluation(s) Reevaluation #1: 08/02/20 20:23 Attempted to wean patient off of oxygen patient's oxygen saturation dropped to 89% on 1.5 L nasal cannula. Patient states feels like she just can't get enough air. Oxygen saturation back up to 94% on 2 L. Time: 20:23 Medical Decision Making - Medical Decision Making Symptoms started on July 23, states had multiple negative tests, but positive on July 29. D-dimer 0.38, WBC count is 8.5. Patient's oxygen level on 1.5 L dropped to 89% chest x-ray shows - Lab Data Result diagrams: 08/02/20 20:54 08/02/20 20:54 Lab Results 08/02/20 08/02/20 08/02/20 Range/Units 20:54 20:54 20:54 WBC 8.5 (3.8-10.6) k/uL RBC 4.17 (3.80-5.40) m/uL Hgb 12.8 (11.4-16.0) gm/dL Hct 37.3 (34.0-46.0) % MCV 89.4 (80.0-100.0) fL MCH 30.7 (25.0-35.0) pg MCHC 34.3 (31.0-37.0) g/dL RDW 11.7 (11.5-15.5) % Plt Count 237 (150-450) k/uL MPV 7.6 Neutrophils % 88 % Lymphocytes % 9 % Monocytes % 2 % Eosinophils % 1 % Basophils % 0 % Neutrophils # 7.4 (1.3-7.7) k/uL Lymphocytes # 0.8 L (1.0-4.8) k/uL Monocytes # 0.1 (0-1.0) k/uL Eosinophils # 0.1 (0-0.7) k/uL Basophils # 0.0 (0-0.2) k/uL PT 10.5 (9.0-12.0) sec INR 1.0 (<1.2) APTT 28.8 (22.0-30.0) sec D-Dimer 0.38 (<0.60) mg/L FEU Sodium 135 L (137-145) mmol/L Potassium 3.6 (3.5-5.1) mmol/L Chloride 100 (98-107) mmol/L Carbon Dioxide 26 (22-30) mmol/L Anion Gap 9 mmol/L BUN 31 H (7-17) mg/dL Creatinine 0.67 (0.52-1.04) mg/dL Est GFR (CKD-EPI)AfAm >90 (>60 ml/min/1.73 sqM) Est GFR (CKD-EPI)NonAf >90 (>60 ml/min/1.73 sqM) Glucose 106 H (74-99) mg/dL Plasma Lactic Acid Noe (0.7-2.0) mmol/L Calcium 8.3 L (8.4-10.2) mg/dL Total Bilirubin 0.9 (0.2-1.3) mg/dL AST 57 H (14-36) U/L ALT 40 H (4-34) U/L Alkaline Phosphatase 200 H (38-126) U/L Troponin I (0.000-0.034) ng/mL Total Protein 6.2 L (6.3-8.2) g/dL Albumin 3.4 L (3.5-5.0) g/dL TSH (0.465-4.680) mIU/L 08/02/20 08/02/20 08/02/20 Range/Units 20:54 20:54 20:54 WBC (3.8-10.6) k/uL RBC (3.80-5.40) m/uL Hgb (11.4-16.0) gm/dL Hct (34.0-46.0) % MCV (80.0-100.0) fL MCH (25.0-35.0) pg MCHC (31.0-37.0) g/dL RDW (11.5-15.5) % Plt Count (150-450) k/uL MPV Neutrophils % % Lymphocytes % % Monocytes % % Eosinophils % % Basophils % % Neutrophils # (1.3-7.7) k/uL Lymphocytes # (1.0-4.8) k/uL Monocytes # (0-1.0) k/uL Eosinophils # (0-0.7) k/uL Basophils # (0-0.2) k/uL PT (9.0-12.0) sec INR (<1.2) APTT (22.0-30.0) sec D-Dimer (<0.60) mg/L FEU Sodium (137-145) mmol/L Potassium (3.5-5.1) mmol/L Chloride (98-107) mmol/L Carbon Dioxide (22-30) mmol/L Anion Gap mmol/L BUN (7-17) mg/dL Creatinine (0.52-1.04) mg/dL Est GFR (CKD-EPI)AfAm (>60 ml/min/1.73 sqM) Est GFR (CKD-EPI)NonAf (>60 ml/min/1.73 sqM) Glucose (74-99) mg/dL Plasma Lactic Acid Noe 1.3 (0.7-2.0) mmol/L Calcium (8.4-10.2) mg/dL Total Bilirubin (0.2-1.3) mg/dL AST (14-36) U/L ALT (4-34) U/L Alkaline Phosphatase (38-126) U/L Troponin I <0.012 (0.000-0.034) ng/mL Total Protein (6.3-8.2) g/dL Albumin (3.5-5.0) g/dL TSH 3.550 (0.465-4.680) mIU/L - EKG Data EKG shows normal: sinus rhythm, intervals (Ventricular rate 89, [place] interval 0.15, QRS of 0.86, QTc of .413) Disposition Clinical Impression: COVID-19, Pneumonia due to COVID-19 virus, Hypoxia Disposition: ADMITTED IP TO THIS HOSP Condition: Fair Is patient prescribed a controlled substance at d/c from ED?: No Referrals: Fabien Rojas MD [Primary Care Provider] - 1-2 days Decision Date: 08/02/20 Decision Time: 22:30
[2020-08-02 21:14] LABS: Basophils % (A) 0 %; Eosinophils # (A) 0.1 k/uL (0-0.7); Eosinophils % (A) 1 %; HCT 37.3 % (34.0-46.0); HGB 12.8 gm/dL (11.4-16.0); Lymphocytes # (A) 0.8 k/uL (1.0-4.8); Lymphocytes % (A) 9 %; MCH 30.7 pg (25.0-35.0); MCHC 34.3 g/dL (31.0-37.0); MCV 89.4 fL (80.0-100.0); Mean Platelet Volume 7.6; Monocytes # (A) 0.1 k/uL (0-1.0); Monocytes % (A) 2 %; Neutrophils # (A) 7.4 k/uL (1.3-7.7); Neutrophils % (A) 88 %; Platelet Count 237 k/uL (150-450); RBC 4.17 m/uL (3.80-5.40); RDW 11.7 % (11.5-15.5); WBC 8.5 k/uL (3.8-10.6)
[2020-08-02 21:20] LABS: ALT 40 U/L (4-34); AST 57 U/L (14-36); African American GFR (CKD) >90 (>60 ml/min/1.73 sqM); Albumin 3.4 g/dL (3.5-5.0); Alkaline Phosphatase 200 U/L (38-126); Anion Gap 9 mmol/L; Blood Urea Nitrogen 31 mg/dL (7-17); Calcium 8.3 mg/dL (8.4-10.2); Carbon Dioxide 26 mmol/L (22-30); Chloride 100 mmol/L (98-107); Glucose 106 mg/dL (74-99); Non-African American GFR(CKD) >90 (>60 ml/min/1.73 sqM); Potassium 3.6 mmol/L (3.5-5.1); Sodium 135 mmol/L (137-145); Total Bilirubin 0.9 mg/dL (0.2-1.3); Total Protein 6.2 g/dL (6.3-8.2)
[2020-08-02 21:23] LABS: D-Dimer 0.38 mg/L FEU (<0.60); Partial Thromboplastin Time 28.8 sec (22.0-30.0); Prothrombin Time 10.5 sec (9.0-12.0)
--- NOTE | 2020-08-02 21:39 | XR ---
EXAMINATION TYPE: XR chest 2V DATE OF EXAM: 08/02/2020 COMPARISON: 07/12/2020. HISTORY: Increased shortness of breath and Covid positive. TECHNIQUE: Frontal and lateral views of the chest are obtained. FINDINGS: There is increased moderate perihilar and bibasilar patchy opacities. No pleural effusion, or pneumothorax seen. The cardiac silhouette size is within normal limits. The osseous structures are intact. IMPRESSION: Worsening infiltrates.
[2020-08-03] MEDS ORDERED: NALOXONE 0.4 MG/ML 1 ML VIAL IV PRN (00:02)
[2020-08-03] MEDS ORDERED: ALBUTEROL HFA INHALER INHALATION STA (00:02)
[2020-08-03] MEDS ORDERED: MORPHINE SULFATE 4 MG/ML SYRINGE IV PRN (00:02)
[2020-08-03] MEDS ORDERED: ONDANSETRON 4 MG/2 ML VIAL IVP PRN (00:02)
[2020-08-03] MEDS: ENOXAPARIN 40 MG/0.4 ML SYRINGE SQ SCH (08:56)
[2020-08-03] MEDS: ACETAMINOPHEN TAB 500 MG TAB PO PRN (10:20)
[2020-08-03] MEDS: SODIUM CHLORIDE 0.9% 1,000 ML IV SCH ×2 (11:17→21:42)
[2020-08-03] MEDS: buPROPion XL 300 MG TAB.ER.24H PO SCH (11:17)
[2020-08-03] MEDS: DEXAMETHASONE SOD PHOSPHATE 10 MG/ML 1 ML VIAL IV SCH (11:23)
[2020-08-03] MEDS: ASCORBIC ACID 500 MG TAB PO SCH (11:23)
[2020-08-03] MEDS: MULTIVITAMINS, THERA 1 EACH TAB PO SCH (11:23)
[2020-08-03] MEDS: CHOLECALCIFEROL 25 MCG (1000 IU) TABLET PO SCH (11:23)
[2020-08-03] MEDS: atenoloL 25 MG TAB PO SCH (11:23)
[2020-08-03] MEDS: LEVOTHYROXINE 100 MCG TAB PO SCH (11:31)
[2020-08-03] MEDS: LEVOTHYROXINE 75 MCG TAB PO SCH (11:31)
[2020-08-03] MEDS: ALBUTEROL HFA INHALER INHALATION PRN ×2 (17:10→21:16)
--- NOTE | 2020-08-03 20:24 | P.CNPUL ---
History of Present Illness Consult date: 08/03/20 Reason for consult: dyspnea, cough, hypoxemia, pneumonia Chief complaint: Progressive shortness of breath for last 4 days History of present illness: This is a 49-year-old female has been diagnosed: Weight 19 pneumonia about a week ago symptoms however started in the last 4 days her has been has been admitted into the hospital with similar problems, currently patient is on 4 L oxygen, patient has been running fever up to 104, her prior history significant for depression, hypothyroidism, hypertension, mood disorder, vitamin D deficiency, she is a nonsmoker, arrival she was noted to have a d-dimer to be 0.38 within normal limit, her chest x-ray shows progressive bilateral patchy infiltrate month currently patient is being treated with dexamethasone and Lovenox and continuation of home medication with supplemental oxygen Review of Systems All systems: negative Past Medical History Past Medical History: Chest Pain / Angina, Hypertension, Thyroid Disorder Additional Past Medical History / Comment(s): Pt tested covid + on 07/29/20 at [facility]. Other hx: Pt states she has sarcoidosis which has affected all her organs except for her brain and heart but in remission kidney stones which pt passed, ovarian cysts, UTIs, hypokalemia. History of Any Multi-Drug Resistant Organisms: None Reported Past Surgical History: Appendectomy, Orthopedic Surgery, Uterine Ablation Additional Past Surgical History / Comment(s): R knee minisicus repair, colonoscopy Past Anesthesia/Blood Transfusion Reactions: Motion Sickness Additional Past Anesthesia/Blood Transfusion Reaction / Comment(s): Pt states she has been itchy after general anesthesia. Pt has clausterphobia. Smoking Status: Never smoker - Past Family History Father Family Medical History: Hypertension Additional Family Medical History / Comment(s): Father is living. Mother Family Medical History: Hypertension Additional Family Medical History / Comment(s): Mother is living Medications and Allergies Home Medications Medication Instructions Recorded Confirmed Type Multivitamins, Thera [Multivitamin 1 tab PO DAILY 01/06/16 08/02/20 History (formulary)] traZODone HCL [Desyrel] 50 mg PO HS PRN 04/03/18 08/02/20 History Potassium Chloride [Klor-Con 20] 20 meq PO TID 06/19/18 08/02/20 History atenoloL [Atenolol] 25 mg PO DAILY 03/04/19 08/02/20 History Levothyroxine Sodium [Synthroid] 175 mcg PO DAILY 07/29/20 08/02/20 History buPROPion XL [Wellbutrin Xl] 300 mg PO DAILY 07/29/20 08/02/20 History Ascorbic Acid [Vitamin C] 1,000 mg PO DAILY 08/02/20 08/02/20 History Cholecalciferol (Vitamin D3) 125 mcg PO DAILY 08/02/20 08/02/20 History [Vitamin D3 (5000 Iu)] Fluticasone Nasal [place] [Flonase 1 spray EA NOSTRIL DAILY 08/02/20 08/02/20 History Nasal [place]] Allergies Allergy/AdvReac Type Severity Reaction Status Date / Time amoxicillin [From Augmentin] Allergy Dyspnea Verified 08/02/20 22:04 clavulanic acid Allergy Dyspnea Verified 08/02/20 22:04 [From Augmentin] hydrocodone bitartrate Allergy Rash/Hives Verified 08/02/20 22:04 [From Vicodin] meperidine HCl [From Demerol] Allergy Rash/Hives Verified 08/02/20 22:04 sulfamethoxazole Allergy Rash/Hives Verified 08/02/20 22:04 [From Bactrim] trimethoprim [From Bactrim] Allergy Rash/Hives Verified 08/02/20 22:04 Physical Exam Vitals: Vital Signs Temp Pulse Pulse Resp BP BP Pulse Ox 08/03/20 17:11 93 L 08/03/20 13:00 97.8 F 103 H 17 103/63 91 L 08/03/20 08:00 100.3 F H 92 19 126/77 95 08/03/20 07:51 99.5 F 87 24 125/81 90 L 08/03/20 06:51 87 17 119/68 96 08/03/20 03:49 94 16 128/78 91 L 08/02/20 22:17 98.9 F 90 18 128/78 93 L Intake and Output 08/03/20 08/03/20 08/03/20 06:59 14:59 22:59 Intake Total 240 900 Balance 240 900 Intake: IV 900 Sodium Chloride 0.9% 1, 900 000 ml @ 100 mls/hr IV . Q10H [facility] Rx#:[id number] Oral 240 Other: Weight 81.647 kg - Constitutional General appearance: cooperative, disheveled - EENT Eyes: EOMI, PERRLA Ears: bilateral: normal - Neck Carotids: bilateral: upstroke normal Thyroid: bilateral: normal size - Respiratory Respiratory: bilateral: diminished - Cardiovascular Rhythm: regular Heart sounds: normal: S1, S2 - Gastrointestinal General gastrointestinal: decreased bowel sounds, soft - Integumentary Integumentary: normal turgor - Neurologic Neurologic: CNII-XII intact - Musculoskeletal Musculoskeletal: gait normal, generalized weakness, strength equal bilaterally - Psychiatric Psychiatric: A&O x's 3, appropriate affect, intact judgment & insight Results - Laboratory Findings CBC and BMP: 08/02/20 20:54 08/02/20 20:54 PT/INR, D-dimer PT 10.5 sec (9.0-12.0) 08/02/20 20:54 INR 1.0 (<1.2) 08/02/20 20:54 D-Dimer 0.61 mg/L FEU (<0.60) H 08/03/20 10:55 Abnormal lab findings: Abnormal Labs 08/02/20 08/02/20 08/03/20 20:54 20:54 10:55 Lymphocytes # 0.8 L D-Dimer 0.61 H Sodium 135 L BUN 31 H Glucose 106 H Calcium 8.3 L AST 57 H ALT 40 H Alkaline Phosphatase 200 H C-Reactive Protein Total Protein 6.2 L Albumin 3.4 L 08/03/20 10:55 Lymphocytes # D-Dimer Sodium BUN Glucose Calcium AST ALT Alkaline Phosphatase C-Reactive Protein 296.4 H Total Protein Albumin - Diagnostic Findings Chest x-ray: report reviewed, image reviewed (Finding as noted above) Assessment and Plan Assessment: Acute hypoxic respiratory failure Acute covid 19 pneumonia Hypothyroidism Hypertension hypertensive cardiovascular disease Vitamin D deficiency Mood disorder depression Plan: IV REMdesivir Steroids in the form of Decadron Continue home medications Continue supplements Deep breathing exercise incentive spirometry Prone positioning Supplemental oxygen Anticoagulation Further recommendations pending plan of care as per clinical response of the patient Time with Patient: Greater than 30
[2020-08-03] MEDS ORDERED: REMDESIVIR 200 MG in SODIUM CHLORIDE 0.9% 250 ML IVPB ONE (21:00)
--- NOTE | 2020-08-03 21:17 | P.HPIM ---
History of Present Illness H&P Date: 08/03/20 Chief Complaint: Short of breath History of presenting complaint: This is a very pleasant 49-year-old patient who follows with Dr. Rojas. Around July 23 patient started becoming progressively short of breath. The left or cough. Fever and chills. Significant headache and body ache. Developed loss of smell and taste. Some diarrhea. [place] very tired and exhausted. Patient was checking her pulse ox at home for last 2 days the pulse ox dropped into the 80s. Patient was diagnosed with COVID 19 on July 29. At [facility] on. Presented to ER admitted with a diagnosis of COVID 19 pneumonia. Patient's is also admitted for the same. With her. Review of systems: GEN.: Fever or chills decreased appetite EYES: None HEENT: Headaches NECK: None RESPIRATORY: As above CARDIOVASCULAR: None GASTROINTESTINAL: As above GENITOURINARY: None MUSCULOSKELETAL: Aches and pains LYMPHATICS: None HEMATOLOGICAL: None PSYCHIATRY: None NEUROLOGICAL: None Past medical history to include: Hypertension, hypothyroid, sarcoidosis affecting several organs including her brain and heart. Kidney stones. Anxiety. Social history: . Nonsmoker. Alcohol rarely. Physical examination: VITAL SIGNS: [100.3, 103, 19, 126/77, 95% on 6 L GENERAL: BMI 31.9, laying in bed, slightly short of breath. EYES: Pupils equal. Conjunctiva normal. HEENT: External appearance of nose and ears normal, oral cavity grossly normal. NECK: JVD not raised; masses not palpable. HEART: First and second heart sounds are normal; no edema. LUNGS: Respiratory rate increased, basal crackles. ABDOMEN: Soft, nontender, liver spleen not palpable, no masses palpable. PSYCH: Alert and oriented x3; mood and affect anxiousl. NEUROLOGICAL: Cranial nerves grossly intact; no facial asymmetry, power and sensation grossly intact. LYMPHATICS: No lymph nodes palpable in the axilla and neck INVESTIGATIONS, reviewed in the clinical context: August 03: D-dimer 0.61 CRP 296.4 Admission labs: WBC 8.5 hemoglobin 12.8 platelets 237 lymphocytes 0.8 d-dimer 0.38 potassium 3.6 creatinine 0.67 TSH 3.5 Chest x-ray film personally reviewed by me-bilateral infiltrates Assessment and plan: -Acute bilateral COVID 19 pneumonitis with symptoms starting about 10 years ago Patient receiving vitamin C, vitamin D, IV dexamethasone, subcu Lovenox. Remdesivir. Pulmonary consulted. Follow CRP d-dimer -Acute hypoxic respiratory failure secondary to COVID 19 pneumonia Supplement oxygen -Hypothyroid Continue with Synthroid -Essential hypertension Continue with atenolol -Chronic sarcoidosis affecting multiple organs except for the brain of the heart. Follow clinically -Anxiety not otherwise specified Continue with Desyrel. Care was discussed at length with the patient. Questions answered. Pulmonary consulted. Oxygen supplementation. Patient to sit up as much possible. Use incentive spirometry. Given the complexity and severity of patient's condition expect the patient to be in the hospital at least for 2 overnights Past Medical History Past Medical History: Chest Pain / Angina, Hypertension, Thyroid Disorder Additional Past Medical History / Comment(s): Pt states she has sarcoidosis 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 Kidney stones which pt passed. Ovarian cysts. UTIs. Hypokalemia. History of Any Multi-Drug Resistant Organisms: None Reported Past Surgical History: Orthopedic Surgery, Uterine Ablation Additional Past Surgical History / Comment(s): R knee minisicus repair Past Anesthesia/Blood Transfusion Reactions: Motion Sickness Additional Past Anesthesia/Blood Transfusion Reaction / Comment(s): Pt states she has been itchy after general anesthesia. Past Psychological History: Anxiety Smoking Status: Never smoker Past Alcohol Use History: Rare Past Drug Use History: None Reported - Past Family History Father Family Medical History: Hypertension Additional Family Medical History / Comment(s): alcoholic Mother Family Medical History: Hypertension Medications and Allergies Home Medications Medication Instructions Recorded Confirmed Type Multivitamins, Thera [Multivitamin 1 tab PO DAILY 01/06/16 08/02/20 History (formulary)] traZODone HCL [Desyrel] 50 mg PO HS PRN 04/03/18 08/02/20 History Potassium Chloride [Klor-Con 20] 20 meq PO TID 06/19/18 08/02/20 History atenoloL [Atenolol] 25 mg PO DAILY 03/04/19 08/02/20 History Levothyroxine Sodium [Synthroid] 175 mcg PO DAILY 07/29/20 08/02/20 History buPROPion XL [Wellbutrin Xl] 300 mg PO DAILY 07/29/20 08/02/20 History Ascorbic Acid [Vitamin C] 1,000 mg PO DAILY 08/02/20 08/02/20 History Cholecalciferol (Vitamin D3) 125 mcg PO DAILY 08/02/20 08/02/20 History [Vitamin D3 (5000 Iu)] Fluticasone Nasal [place] [Flonase 1 spray EA NOSTRIL DAILY 08/02/20 08/02/20 History Nasal [place]] Allergies Allergy/AdvReac Type Severity Reaction Status Date / Time amoxicillin [From Augmentin] Allergy Dyspnea Verified 08/02/20 22:04 clavulanic acid Allergy Dyspnea Verified 08/02/20 22:04 [From Augmentin] hydrocodone bitartrate Allergy Rash/Hives Verified 08/02/20 22:04 [From Vicodin] meperidine HCl [From Demerol] Allergy Rash/Hives Verified 08/02/20 22:04 sulfamethoxazole Allergy Rash/Hives Verified 08/02/20 22:04 [From Bactrim] trimethoprim [From Bactrim] Allergy Rash/Hives Verified 08/02/20 22:04 Physical Exam Vitals: Vital Signs Temp Pulse Pulse Resp BP BP Pulse Ox 08/03/20 08:00 100.3 F H 92 19 126/77 95 08/03/20 07:51 99.5 F 87 24 125/81 90 L 08/03/20 06:51 87 17 119/68 96 08/03/20 03:49 94 16 128/78 91 L 08/02/20 22:17 98.9 F 90 18 128/78 93 L 08/02/20 19:50 18 08/02/20 19:44 99.0 F 88 20 134/68 95 Intake and Output 08/02/20 08/03/20 08/03/20 22:59 06:59 14:59 Other: Weight 81.647 kg Results CBC & Chem 7: 08/02/20 20:54 08/02/20 20:54 Labs: Abnormal Lab Results - Last 24 Hours (Table) 08/02/20 08/02/20 Range/Units 20:54 20:54 Lymphocytes # 0.8 L (1.0-4.8) k/uL Sodium 135 L (137-145) mmol/L BUN 31 H (7-17) mg/dL Glucose 106 H (74-99) mg/dL Calcium 8.3 L (8.4-10.2) mg/dL AST 57 H (14-36) U/L ALT 40 H (4-34) U/L Alkaline Phosphatase 200 H (38-126) U/L Total Protein 6.2 L (6.3-8.2) g/dL Albumin 3.4 L (3.5-5.0) g/dL
[2020-08-04] MEDS: ALBUTEROL HFA INHALER INHALATION PRN ×4 (04:44→16:50)
[2020-08-04] MEDS: LEVOTHYROXINE 100 MCG TAB PO SCH (05:04)
[2020-08-04] MEDS: ACETAMINOPHEN TAB 500 MG TAB PO PRN (05:04)
[2020-08-04] MEDS: LEVOTHYROXINE 75 MCG TAB PO SCH (05:04)
[2020-08-04] MEDS: MULTIVITAMINS, THERA 1 EACH TAB PO SCH (08:17)
[2020-08-04] MEDS: DEXAMETHASONE SOD PHOSPHATE 10 MG/ML 1 ML VIAL IV SCH (08:17)
[2020-08-04] MEDS: CHOLECALCIFEROL 25 MCG (1000 IU) TABLET PO SCH (08:17)
[2020-08-04] MEDS: ENOXAPARIN 40 MG/0.4 ML SYRINGE SQ SCH (08:17)
[2020-08-04] MEDS: atenoloL 25 MG TAB PO SCH (08:17)
[2020-08-04] MEDS: ASCORBIC ACID 500 MG TAB PO SCH (08:17)
[2020-08-04] MEDS: buPROPion XL 300 MG TAB.ER.24H PO SCH (10:08)
[2020-08-04] MEDS: SODIUM CHLORIDE 0.9% 1,000 ML IV SCH ×2 (10:08→19:54)
[2020-08-04 13:46] LABS: Basophils % (A) 1 %; Eosinophils % (A) 1 %; HCT 35.1 % (34.0-46.0); Lymphocytes # (A) 0.7 k/uL (1.0-4.8); Lymphocytes % (A) 16 %; MCH 30.9 pg (25.0-35.0); MCHC 34.2 g/dL (31.0-37.0); MCV 90.3 fL (80.0-100.0); Mean Platelet Volume 7.7; Monocytes # (A) 0.2 k/uL (0-1.0); Monocytes % (A) 4 %; Neutrophils # (A) 3.4 k/uL (1.3-7.7); Neutrophils % (A) 75 %; Platelet Count 316 k/uL (150-450); RBC 3.89 m/uL (3.80-5.40); RDW 11.7 % (11.5-15.5); WBC 4.5 k/uL (3.8-10.6)
[2020-08-04 14:02] LABS: ALT 23 U/L (4-34); AST 35 U/L (14-36); African American GFR (CKD) >90 (>60 ml/min/1.73 sqM); Albumin 2.9 g/dL (3.5-5.0); Alkaline Phosphatase 159 U/L (38-126); Anion Gap 6 mmol/L; Blood Urea Nitrogen 22 mg/dL (7-17); Calcium 8.4 mg/dL (8.4-10.2); Carbon Dioxide 23 mmol/L (22-30); Chloride 106 mmol/L (98-107); Glucose 127 mg/dL (74-99); Magnesium 2.2 mg/dL (1.6-2.3); Non-African American GFR(CKD) >90 (>60 ml/min/1.73 sqM); Phosphorus 2.7 mg/dL (2.5-4.5); Potassium 3.7 mmol/L (3.5-5.1); Sodium 135 mmol/L (137-145); Total Bilirubin 0.5 mg/dL (0.2-1.3); Total Protein 5.6 g/dL (6.3-8.2)
[2020-08-04 14:38] VITALS: BMI 31.8
--- NOTE | 2020-08-04 16:52 | P.PN ---
Subjective Progress Note Date: 08/04/20 Principal diagnosis: Acute hypoxic respiratory failure Acute covid 19 pneumonia Hypothyroidism Hypertension hypertensive cardiovascular disease Vitamin D deficiency Mood disorder depression 08/04/2020, patient seen eval examined shortness of breath still there patient has been explained about sleeping as much as possible supine, saturation is stable on 10 L, oxygen saturation 94-96%, hemodynamically stable and afebrile, BUN and creatinine improved now, patient remains on IV REMdesivir along with Lovenox and Decadron This is a 49-year-old female has been diagnosed: Weight 19 pneumonia about a week ago symptoms however started in the last 4 days her has been has been admitted into the hospital with similar problems, currently patient is on 4 L oxygen, patient has been running fever up to 104, her prior history significant for depression, hypothyroidism, hypertension, mood disorder, vitamin D deficiency, she is a nonsmoker, arrival she was noted to have a d-dimer to be 0.38 within normal limit, her chest x-ray shows progressive bilateral patchy infiltrate month currently patient is being treated with dexamethasone and Lovenox and continuation of home medication with supplemental oxygen Objective - Vital Signs Vital signs: Vital Signs Temp 97.9 F 08/04/20 15:58 Pulse 68 08/04/20 15:58 Resp 20 08/04/20 15:58 BP 136/82 08/04/20 15:58 Pulse Ox 94 L 08/04/20 15:58 Intake & Output 08/03/20 08/04/20 08/04/20 18:59 06:59 18:59 Intake Total 1140 Balance 1140 Weight 81.647 kg 81.647 kg Intake: IV 900 Sodium Chloride 0.9% 1, 900 000 ml @ 100 mls/hr IV . Q10H [facility] Rx#:[id number] Oral 240 - Exam - Constitutional General appearance: cooperative, disheveled - EENT Eyes: EOMI, PERRLA Ears: bilateral: normal - Neck Carotids: bilateral: upstroke normal Thyroid: bilateral: normal size - Respiratory Respiratory: bilateral: diminished - Cardiovascular Rhythm: regular Heart sounds: normal: S1, S2 - Gastrointestinal General gastrointestinal: decreased bowel sounds, soft - Integumentary Integumentary: normal turgor - Neurologic Neurologic: CNII-XII intact - Musculoskeletal Musculoskeletal: gait normal, generalized weakness, strength equal bilaterally - Psychiatric Psychiatric: A&O x's 3, appropriate affect, intact judgment & insight - Labs CBC & Chem 7: 08/04/20 13:23 08/04/20 13:23 Labs: Abnormal Lab Results - Last 24 Hours (Table) 08/04/20 08/04/20 Range/Units 13:23 13:23 Lymphocytes # 0.7 L (1.0-4.8) k/uL Sodium 135 L (137-145) mmol/L BUN 22 H (7-17) mg/dL Creatinine 0.43 L (0.52-1.04) mg/dL Glucose 127 H (74-99) mg/dL Alkaline Phosphatase 159 H (38-126) U/L Total Protein 5.6 L (6.3-8.2) g/dL Albumin 2.9 L (3.5-5.0) g/dL Assessment and Plan Assessment: Acute hypoxic respiratory failure Acute covid 19 pneumonia Hypothyroidism Hypertension hypertensive cardiovascular disease Vitamin D deficiency Mood disorder depression Plan: IV REMdesivir Steroids in the form of Decadron Continue home medications Continue supplements Deep breathing exercise incentive spirometry Prone positioning Supplemental oxygen Anticoagulation Further recommendations pending plan of care as per clinical response of the patient Time with Patient: Greater than 30
--- NOTE | 2020-08-04 19:45 | P.PN ---
Progress Note - Text Progress Note Date: 08/04/20 Chief Complaint: Short of breath History of presenting complaint: This is a very pleasant 49-year-old patient who follows with Dr. Rojas. Around July 23 patient started becoming progressively short of breath. The left or cough. Fever and chills. Significant headache and body ache. Developed loss of smell and taste. Some diarrhea. [place] very tired and exhausted. Patient was checking her pulse ox at home for last 2 days the pulse ox dropped into the 80s. Patient was diagnosed with COVID 19 on July 29. At [facility] on. Presented to ER admitted with a diagnosis of COVID 19 pneumonia. Patient's is also admitted for the same. With her. Admitted with bilateral COVID 19 pneumonia, acute hypoxic respiratory failure. Given IV dexamethasone Lovenox Remdesivir. Today: Reclining in bed. Tired. Oxygen requirement has gone up. Oral intake decreased. Short of breath. Some cough Review of systems: Was done for constitutional, cardiovascular, GI, pulmonary. relevant finding as above Active Medications Acetaminophen (Acetaminophen Tab 500 Mg Tab) 500 mg PO Q6HR PRN PRN Reason: Fever and/ or Pain Last Admin: 08/04/20 05:04 Dose: 500 mg Documented by: Albuterol Sulfate (Albuterol Hfa Inhaler) 2 puff INHALATION RT-QID PRN PRN Reason: Shortness Of Breath Or Wheezing Last Admin: 08/04/20 16:50 Dose: 2 puff Documented by: Ascorbic Acid (Ascorbic Acid 500 Mg Tab) 1,000 mg PO DAILY [facility] Last Admin: 08/04/20 08:17 Dose: 1,000 mg Documented by: Atenolol (Atenolol 25 Mg Tab) 25 mg PO DAILY [facility] Last Admin: 08/04/20 08:17 Dose: 25 mg Documented by: Bupropion HCl (Bupropion Xl 300 Mg Tab.Er.24h) 300 mg PO DAILY [facility] Last Admin: 08/04/20 10:08 Dose: 300 mg Documented by: Cholecalciferol (Cholecalciferol 25 Mcg (1000 Iu) Tablet) 125 mcg PO DAILY [facility] Last Admin: 08/04/20 08:17 Dose: 125 mcg Documented by: Dexamethasone Sodium Phosphate (Dexamethasone Sod Phosphate 10 Mg/Ml 1 Ml Vial) 6 mg IV DAILY [facility] Last Admin: 08/04/20 08:17 Dose: 6 mg Documented by: Enoxaparin Sodium (Enoxaparin 40 Mg/0.4 Ml Syringe) 40 mg SQ DAILY [facility] Last Admin: 08/04/20 08:17 Dose: 40 mg Documented by: Sodium Chloride (Saline 0.9%) 1,000 mls @ 100 mls/hr IV .Q10H [facility] Last Admin: 08/04/20 10:08 Dose: 100 mls/hr Documented by: Remdesivir 100 mg/ Sodium (Chloride) 250 mls @ 250 mls/hr IVPB DAILY@2100 [facility] Stop: 08/07/20 21:59 Levothyroxine Sodium (Levothyroxine 100 Mcg Tab) 100 mcg PO DAILY@0630 [facility] Last Admin: 08/04/20 05:04 Dose: 100 mcg Documented by: Levothyroxine Sodium (Levothyroxine 75 Mcg Tab) 75 mcg PO DAILY@0630 [facility] Last Admin: 08/04/20 05:04 Dose: 75 mcg Documented by: Morphine Sulfate (Morphine Sulfate 4 Mg/Ml Syringe) 4 mg IV Q4HR PRN PRN Reason: Severe Pain Multivitamins (Multivitamins, Thera 1 Each Tab) 1 each PO DAILY [facility] Last Admin: 08/04/20 08:17 Dose: 1 each Documented by: Naloxone HCl (Naloxone 0.4 Mg/Ml 1 Ml Vial) 0.2 mg IV Q2M PRN PRN Reason: Opioid Reversal Ondansetron HCl (Ondansetron 4 Mg/2 Ml Vial) 4 mg IVP Q8HR PRN PRN Reason: Nausea And Vomiting Trazodone HCl (Trazodone Hcl 50 Mg Tab) 50 mg PO HS PRN PRN Reason: insomnia Past medical history to include: Hypertension, hypothyroid, sarcoidosis affecting several organs including her brain and heart. Kidney stones. Anxiety. Social history: . Nonsmoker. Alcohol rarely. Physical examination: VITAL SIGNS: 98, 66, 18, 109/72, 90% on 6 L GENERAL: Reclining in bed, short of breath, bit tired EYES: Pupils equal. Conjunctiva normal. NECK: JVD not raised; masses not palpable. HEART: First and second heart sounds are normal; no edema. LUNGS: Respiratory rate increased, PSYCH: Alert and oriented x3; mood and affect anxious. NEUROLOGICAL: Cranial nerves grossly intact; no facial asymmetry, moving limbs. INVESTIGATIONS, reviewed in the clinical context: August 04: WBC 4.5 hemoglobin 12 potassium 3.7 creatinine 0.43 August 03: D-dimer 0.61 CRP 296.4 Admission labs: WBC 8.5 hemoglobin 12.8 platelets 237 lymphocytes 0.8 d-dimer 0.38 potassium 3.6 creatinine 0.67 TSH 3.5 Chest x-ray film personally reviewed by me-bilateral infiltrates Assessment and plan: -Acute bilateral COVID 19 pneumonitis with symptoms starting about 10 days ago-worsening vitamin C, vitamin D, IV dexamethasone, subcu Lovenox. Remdesivir. Pulmonary consulted. Follow CRP d-dimer -Acute hypoxic respiratory failure secondary to COVID 19 pneumonia-worsening Supplement oxygen, up to 6 L of nasal cannula -Hypothyroid Continue with Synthroid -Essential hypertension Continue with atenolol -Chronic sarcoidosis affecting multiple organs except for the brain of the heart. Follow clinically -Anxiety not otherwise specified Continue with Desyrel. -Hypoalbuminemia, second phase reactant Encouraged to sit up. Use incentive spirometry. Medications to continue. Follow with pulmonary
[2020-08-04] MEDS: REMDESIVIR 100 MG in SODIUM CHLORIDE 0.9% 250 ML IVPB SCH (21:31)
[2020-08-05] MEDS: ACETAMINOPHEN TAB 500 MG TAB PO PRN (02:37)
[2020-08-05] MEDS: SODIUM CHLORIDE 0.9% 1,000 ML IV SCH ×3 (03:00→17:53)
[2020-08-05] MEDS: LEVOTHYROXINE 100 MCG TAB PO SCH (06:14)
[2020-08-05] MEDS: LEVOTHYROXINE 75 MCG TAB PO SCH (06:14)
[2020-08-05] MEDS: ALBUTEROL HFA INHALER INHALATION PRN ×2 (07:43→19:07)
[2020-08-05] MEDS: ASCORBIC ACID 500 MG TAB PO SCH (09:07)
[2020-08-05] MEDS: CHOLECALCIFEROL 25 MCG (1000 IU) TABLET PO SCH (09:07)
[2020-08-05] MEDS: atenoloL 25 MG TAB PO SCH (09:07)
[2020-08-05] MEDS: MULTIVITAMINS, THERA 1 EACH TAB PO SCH (09:08)
[2020-08-05] MEDS: ENOXAPARIN 40 MG/0.4 ML SYRINGE SQ SCH (09:08)
[2020-08-05] MEDS: DEXAMETHASONE SOD PHOSPHATE 10 MG/ML 1 ML VIAL IV SCH (09:08)
[2020-08-05] MEDS: buPROPion XL 300 MG TAB.ER.24H PO SCH (09:08)
--- NOTE | 2020-08-05 14:36 | P.PN ---
Subjective Progress Note Date: 08/05/20 Principal diagnosis: Acute hypoxic respiratory failure Acute covid 19 pneumonia Hypothyroidism Hypertension hypertensive cardiovascular disease Vitamin D deficiency Mood disorder depression 08/05/2020, patient seen eval examined during the rounds labs reviewed medications reviewed care plan discussed, respiratory status remains stable, however patient remains short of breath, intermittent dry cough is present, FiO2 just have been lowered down from 10 L to 8 L, oxygen saturation is 96%, 08/04/2020, patient seen eval examined shortness of breath still there patient has been explained about sleeping as much as possible supine, saturation is stable on 10 L, oxygen saturation 94-96%, hemodynamically stable and afebrile, BUN and creatinine improved now, patient remains on IV REMdesivir along with Lovenox and Decadron This is a 49-year-old female has been diagnosed: Weight 19 pneumonia about a week ago symptoms however started in the last 4 days her has been has been admitted into the hospital with similar problems, currently patient is on 4 L oxygen, patient has been running fever up to 104, her prior history significant for depression, hypothyroidism, hypertension, mood disorder, vitamin D deficiency, she is a nonsmoker, arrival she was noted to have a d-dimer to be 0.38 within normal limit, her chest x-ray shows progressive bilateral patchy infiltrate month currently patient is being treated with dexamethasone and Lovenox and continuation of home medication with supplemental oxygen Objective - Vital Signs Vital signs: Vital Signs Temp 97.6 F 08/05/20 12:41 Pulse 66 08/05/20 12:41 Resp 18 08/05/20 13:00 BP 119/75 08/05/20 12:41 Pulse Ox 96 08/05/20 13:00 Intake & Output 08/04/20 08/05/20 08/05/20 18:59 06:59 18:59 Intake Total 1200 Balance 1200 Weight 81.647 kg Intake: IV 1200 Sodium Chloride 0.9% 1, 1200 000 ml @ 100 mls/hr IV . Q10H [facility] Rx#:[id number] Other: # Voids 1 - Exam - Constitutional General appearance: cooperative, disheveled - EENT Eyes: EOMI, PERRLA Ears: bilateral: normal - Neck Carotids: bilateral: upstroke normal Thyroid: bilateral: normal size - Respiratory Respiratory: bilateral: diminished - Cardiovascular Rhythm: regular Heart sounds: normal: S1, S2 - Gastrointestinal General gastrointestinal: decreased bowel sounds, soft - Integumentary Integumentary: normal turgor - Neurologic Neurologic: CNII-XII intact - Musculoskeletal Musculoskeletal: gait normal, generalized weakness, strength equal bilaterally - Psychiatric Psychiatric: A&O x's 3, appropriate affect, intact judgment & insight - Labs CBC & Chem 7: 08/04/20 13:23 08/04/20 13:23 Assessment and Plan Assessment: Acute hypoxic respiratory failure Acute covid 19 pneumonia Hypothyroidism Hypertension hypertensive cardiovascular disease Vitamin D deficiency Mood disorder depression Plan: IV REMdesivir Steroids in the form of Decadron Continue home medications Continue supplements Deep breathing exercise incentive spirometry Prone positioning Supplemental oxygen Anticoagulation Further recommendations pending plan of care as per clinical response of the patient Time with Patient: Greater than 30
--- NOTE | 2020-08-05 21:02 | P.PN ---
Progress Note - Text Progress Note Date: 08/05/20 Chief Complaint: Short of breath History of presenting complaint: This is a very pleasant 49-year-old patient who follows with Dr. Rojas. Around July 23 patient started becoming progressively short of breath. The left or cough. Fever and chills. Significant headache and body ache. Developed loss of smell and taste. Some diarrhea. [place] very tired and exhausted. Patient was checking her pulse ox at home for last 2 days the pulse ox dropped into the 80s. Patient was diagnosed with COVID 19 on July 29. At [facility] on. Presented to ER admitted with a diagnosis of COVID 19 pneumonia. Patient's is also admitted for the same. With her. Admitted with bilateral COVID 19 pneumonia, acute hypoxic respiratory failure. Given IV dexamethasone Lovenox Remdesivir. Today: Reclining in bed. Tired. Eating some. On 8 L of nasal cannula. Short of breath slight cough Review of systems: Was done for constitutional, cardiovascular, GI, pulmonary. relevant finding as above Active Medications Acetaminophen (Acetaminophen Tab 500 Mg Tab) 500 mg PO Q6HR PRN PRN Reason: Fever and/ or Pain Last Admin: 08/05/20 02:37 Dose: 500 mg Documented by: Albuterol Sulfate (Albuterol Hfa Inhaler) 2 puff INHALATION RT-QID PRN PRN Reason: Shortness Of Breath Or Wheezing Last Admin: 08/05/20 19:07 Dose: 2 puff Documented by: Ascorbic Acid (Ascorbic Acid 500 Mg Tab) 1,000 mg PO DAILY [facility] Last Admin: 08/05/20 09:07 Dose: 1,000 mg Documented by: Atenolol (Atenolol 25 Mg Tab) 25 mg PO DAILY [facility] Last Admin: 08/05/20 09:07 Dose: 25 mg Documented by: Bupropion HCl (Bupropion Xl 300 Mg Tab.Er.24h) 300 mg PO DAILY [facility] Last Admin: 08/05/20 09:08 Dose: 300 mg Documented by: Cholecalciferol (Cholecalciferol 25 Mcg (1000 Iu) Tablet) 125 mcg PO DAILY [facility] Last Admin: 08/05/20 09:07 Dose: 125 mcg Documented by: Dexamethasone Sodium Phosphate (Dexamethasone Sod Phosphate 10 Mg/Ml 1 Ml Vial) 6 mg IV DAILY [facility] Last Admin: 08/05/20 09:08 Dose: 6 mg Documented by: Enoxaparin Sodium (Enoxaparin 40 Mg/0.4 Ml Syringe) 40 mg SQ DAILY [facility] Last Admin: 08/05/20 09:08 Dose: 40 mg Documented by: Sodium Chloride (Saline 0.9%) 1,000 mls @ 100 mls/hr IV .Q10H [facility] Last Admin: 08/05/20 17:53 Dose: 100 mls/hr Documented by: Remdesivir 100 mg/ Sodium (Chloride) 250 mls @ 250 mls/hr IVPB DAILY@2100 [facility] Stop: 08/07/20 21:59 Last Admin: 08/04/20 21:31 Dose: 250 mls/hr Documented by: Levothyroxine Sodium (Levothyroxine 100 Mcg Tab) 100 mcg PO DAILY@0630 [facility] Last Admin: 08/05/20 06:14 Dose: 100 mcg Documented by: Levothyroxine Sodium (Levothyroxine 75 Mcg Tab) 75 mcg PO DAILY@30 [facility] Last Admin: 08/05/20 06:14 Dose: 75 mcg Documented by: Morphine Sulfate (Morphine Sulfate 4 Mg/Ml Syringe) 4 mg IV Q4HR PRN PRN Reason: Severe Pain Multivitamins (Multivitamins, Thera 1 Each Tab) 1 each PO DAILY [facility] Last Admin: 08/05/20 09:08 Dose: 1 each Documented by: Naloxone HCl (Naloxone 0.4 Mg/Ml 1 Ml Vial) 0.2 mg IV Q2M PRN PRN Reason: Opioid Reversal Ondansetron HCl (Ondansetron 4 Mg/2 Ml Vial) 4 mg IVP Q8HR PRN PRN Reason: Nausea And Vomiting Trazodone HCl (Trazodone Hcl 50 Mg Tab) 50 mg PO HS PRN PRN Reason: insomnia Past medical history to include: Hypertension, hypothyroid, sarcoidosis affecting several organs including her brain and heart. Kidney stones. Anxiety. Social history: . Nonsmoker. Alcohol rarely. Physical examination: VITAL SIGNS: 97.6, 66, 22, 119/75, 97% on 8 L GENERAL: Reclining in bed, short of breath, bit tired LUNGS: Respiratory rate increased, PSYCH: Alert and oriented x3; mood and affect anxious. NEUROLOGICAL: Cranial nerves grossly intact; no facial asymmetry, moving limbs. Rest of exam as per pulmonary and nursing INVESTIGATIONS, reviewed in the clinical context: August 04: WBC 4.5 hemoglobin 12 potassium 3.7 creatinine 0.43 August 03: D-dimer 0.61 CRP 296.4 Admission labs: WBC 8.5 hemoglobin 12.8 platelets 237 lymphocytes 0.8 d-dimer 0.38 potassium 3.6 creatinine 0.67 TSH 3.5 Chest x-ray film personally reviewed by me-bilateral infiltrates Assessment and plan: -Acute bilateral COVID 19 pneumonitis with symptoms starting about 10 days not improving vitamin C, vitamin D, IV dexamethasone, subcu Lovenox. Remdesivir. Pulmonary consulted. Follow CRP d-dimer -Acute hypoxic respiratory failure secondary to COVID 19 pneumonia-worsening Supplement oxygen, up to 8 L of nasal cannula -Hypothyroid Continue with Synthroid -Essential hypertension Continue with atenolol -Chronic sarcoidosis affecting multiple organs except for the brain of the heart. Follow clinically -Anxiety not otherwise specified Continue with Desyrel. -Hypoalbuminemia, second phase reactant -Acute medical debility from above Encouraged to sit up. Use incentive spirometry. . Follow with pulmonary
[2020-08-05] MEDS: REMDESIVIR 100 MG in SODIUM CHLORIDE 0.9% 250 ML IVPB SCH (21:38)
[2020-08-05] MEDS: traZODone HCL 50 MG TAB PO PRN (21:42)
[2020-08-06] MEDS: LEVOTHYROXINE 75 MCG TAB PO SCH (06:00)
[2020-08-06] MEDS: LEVOTHYROXINE 100 MCG TAB PO SCH (06:00)
[2020-08-06] MEDS: ALBUTEROL HFA INHALER INHALATION PRN (07:53)
[2020-08-06] MEDS: atenoloL 25 MG TAB PO SCH (08:51)
[2020-08-06] MEDS: CHOLECALCIFEROL 25 MCG (1000 IU) TABLET PO SCH (08:51)
[2020-08-06] MEDS: MULTIVITAMINS, THERA 1 EACH TAB PO SCH (08:51)
[2020-08-06] MEDS: DEXAMETHASONE SOD PHOSPHATE 10 MG/ML 1 ML VIAL IV SCH (08:52)
[2020-08-06] MEDS: buPROPion XL 300 MG TAB.ER.24H PO SCH (08:52)
[2020-08-06] MEDS: ASCORBIC ACID 500 MG TAB PO SCH (08:52)
[2020-08-06] MEDS: SODIUM CHLORIDE 0.9% 1,000 ML IV SCH ×2 (08:53→19:53)
[2020-08-06] MEDS: ENOXAPARIN 40 MG/0.4 ML SYRINGE SQ SCH (08:53)
--- NOTE | 2020-08-06 18:04 | P.PN ---
Subjective Progress Note Date: 08/06/20 Principal diagnosis: Acute hypoxic respiratory failure Acute covid 19 pneumonia Hypothyroidism Hypertension hypertensive cardiovascular disease Vitamin D deficiency Mood disorder depression 08/06/2020, patient seen eval examined during the rounds labs reviewed medications reviewed care plan discussed, respiratory status slightly better patient remains on 8 L oxygen saturation is 94-96%, cough congestion shortness of breath significantly improved, 08/05/2020, patient seen eval examined during the rounds labs reviewed medications reviewed care plan discussed, respiratory status remains stable, however patient remains short of breath, intermittent dry cough is present, FiO2 just have been lowered down from 10 L to 8 L, oxygen saturation is 96%, 08/04/2020, patient seen eval examined shortness of breath still there patient has been explained about sleeping as much as possible supine, saturation is stable on 10 L, oxygen saturation 94-96%, hemodynamically stable and afebrile, BUN and creatinine improved now, patient remains on IV REMdesivir along with Lovenox and Decadron This is a 49-year-old female has been diagnosed: Weight 19 pneumonia about a week ago symptoms however started in the last 4 days her has been has been admitted into the hospital with similar problems, currently patient is on 4 L oxygen, patient has been running fever up to 104, her prior history significant for depression, hypothyroidism, hypertension, mood disorder, vitamin D defici ency, she is a nonsmoker, arrival she was noted to have a d-dimer to be 0.38 within normal limit, her chest x-ray shows progressive bilateral patchy infiltrate month currently patient is being treated with dexamethasone and Lovenox and continuation of home medication with supplemental oxygen Objective - Vital Signs Vital signs: Vital Signs Temp 98.6 F 08/06/20 16:00 Pulse 86 08/06/20 16:00 Resp 16 08/06/20 16:00 BP 117/68 08/06/20 16:00 Pulse Ox 95 08/06/20 16:00 Intake & Output 08/05/20 08/06/20 08/06/20 18:59 06:59 18:59 Intake Total 900 1600 Output Total 400 750 Balance 500 850 Intake: IV 900 1100 Sodium Chloride 0.9% 1, 900 1100 000 ml @ 100 mls/hr IV . Q10H [facility] Rx#:[id number] Oral 500 Output: Urine 400 750 Other: # Voids 4 1 2 # Bowel Movements 1 1 - Exam - Constitutional General appearance: cooperative, disheveled - EENT Eyes: EOMI, PERRLA Ears: bilateral: normal - Neck Carotids: bilateral: upstroke normal Thyroid: bilateral: normal size - Respiratory Respiratory: bilateral: diminished - Cardiovascular Rhythm: regular Heart sounds: normal: S1, S2 - Gastrointestinal General gastrointestinal: decreased bowel sounds, soft - Integumentary Integumentary: normal turgor - Neurologic Neurologic: CNII-XII intact - Musculoskeletal Musculoskeletal: gait normal, generalized weakness, strength equal bilaterally - Psychiatric Psychiatric: A&O x's 3, appropriate affect, intact judgment & insight - Labs CBC & Chem 7: 08/04/20 13:23 08/04/20 13:23 Labs: Abnormal Lab Results - Last 24 Hours (Table) 08/06/20 08/06/20 Range/Units 06:20 06:20 D-Dimer 0.93 H (<0.60) mg/L FEU C-Reactive Protein 54.2 H (<10.0) mg/L Assessment and Plan Assessment: Acute hypoxic respiratory failure Acute covid 19 pneumonia Hypothyroidism Hypertension hypertensive cardiovascular disease Vitamin D deficiency Mood disorder depression Plan: IV REMdesivir Steroids in the form of Decadron Continue home medications Continue supplements Deep breathing exercise incentive spirometry Prone positioning Supplemental oxygen Anticoagulation Further recommendations pending plan of care as per clinical response of the patient Time with Patient: Greater than 30
--- NOTE | 2020-08-06 18:28 | P.PN ---
Progress Note - Text Progress Note Date: 08/06/20 Chief Complaint: Short of breath History of presenting complaint: This is a very pleasant 49-year-old patient who follows with Dr. Rojas. Around July 23 patient started becoming progressively short of breath. The left or cough. Fever and chills. Significant headache and body ache. Developed loss of smell and taste. Some diarrhea. [employer] very tired and exhausted. Patient was checking her pulse ox at home for last 2 days the pulse ox dropped into the 80s. Patient was diagnosed with COVID 19 on July 29. At [facility] on. Presented to ER admitted with a diagnosis of COVID 19 pneumonia. Patient's is also admitted for the same. With her. Admitted with bilateral COVID 19 pneumonia, acute hypoxic respiratory failure. Given IV dexamethasone Lovenox Remdesivir. Today: Sitting up in a chair. Nasal cannula. 8 L. Short of breath. Feeling that she had better. Eating some. Tired. Review of systems: Was done for constitutional, cardiovascular, GI, pulmonary. relevant finding as above Active Medications Acetaminophen (Acetaminophen Tab 500 Mg Tab) 500 mg PO Q6HR PRN PRN Reason: Fever and/ or Pain Last Admin: 08/05/20 02:37 Dose: 500 mg Documented by: Albuterol Sulfate (Albuterol Hfa Inhaler) 2 puff INHALATION RT-QID PRN PRN Reason: Shortness Of Breath Or Wheezing Last Admin: 08/06/20 07:53 Dose: 2 puff Documented by: Ascorbic Acid (Ascorbic Acid 500 Mg Tab) 1,000 mg PO DAILY [facility] Last Admin: 08/06/20 08:52 Dose: 1,000 mg Documented by: Atenolol (Atenolol 25 Mg Tab) 25 mg PO DAILY [facility] Last Admin: 08/06/20 08:51 Dose: 25 mg Documented by: Bupropion HCl (Bupropion Xl 300 Mg Tab.Er.24h) 300 mg PO DAILY [facility] Last Admin: 08/06/20 08:52 Dose: 300 mg Documented by: Cholecalciferol (Cholecalciferol 25 Mcg (1000 Iu) Tablet) 125 mcg PO DAILY [facility] Last Admin: 08/06/20 08:51 Dose: 125 mcg Documented by: Dexamethasone Sodium Phosphate (Dexamethasone Sod Phosphate 10 Mg/Ml 1 Ml Vial) 6 mg IV DAILY [facility] Last Admin: 08/06/20 08:52 Dose: 6 mg Documented by: Enoxaparin Sodium (Enoxaparin 40 Mg/0.4 Ml Syringe) 40 mg SQ DAILY [facility] Last Admin: 08/06/20 08:53 Dose: 40 mg Documented by: Sodium Chloride (Saline 0.9%) 1,000 mls @ 100 mls/hr IV .Q10H [facility] Last Admin: 08/06/20 08:53 Dose: 100 mls/hr Documented by: Remdesivir 100 mg/ Sodium (Chloride) 250 mls @ 250 mls/hr IVPB DAILY@2100 [facility] Stop: 08/07/20 21:59 Last Admin: 08/05/20 21:38 Dose: 250 mls/hr Documented by: Levothyroxine Sodium (Levothyroxine 100 Mcg Tab) 100 mcg PO DAILY@0630 [facility] Last Admin: 08/06/20 06:00 Dose: 100 mcg Documented by: Levothyroxine Sodium (Levothyroxine 75 Mcg Tab) 75 mcg PO DAILY@30 [facility] Last Admin: 08/06/20 06:00 Dose: 75 mcg Documented by: Multivitamins (Multivitamins, Thera 1 Each Tab) 1 each PO DAILY [facility] Last Admin: 08/06/20 08:51 Dose: 1 each Documented by: Naloxone HCl (Naloxone 0.4 Mg/Ml 1 Ml Vial) 0.2 mg IV Q2M PRN PRN Reason: Opioid Reversal Ondansetron HCl (Ondansetron 4 Mg/2 Ml Vial) 4 mg IVP Q8HR PRN PRN Reason: Nausea And Vomiting Trazodone HCl (Trazodone Hcl 50 Mg Tab) 50 mg PO HS PRN PRN Reason: insomnia Last Admin: 08/05/20 21:42 Dose: 50 mg Documented by: Past medical history to include: Hypertension, hypothyroid, sarcoidosis affecting several organs including her brain and heart. Kidney stones. Anxiety. Social history: . Nonsmoker. Alcohol rarely. Physical examination: VITAL SIGNS: 98.6, 86, 16, 117/68, 98% on 8 L GENERAL: Sitting up in a chair short of breath, bit tired LUNGS: Respiratory rate increased, PSYCH: Alert and oriented x3; mood and affect anxious. NEUROLOGICAL: Cranial nerves grossly intact; no facial asymmetry, moving limbs. Rest of exam as per pulmonary and nursing INVESTIGATIONS, reviewed in the clinical context: August 06: D-dimer 0.93 CRP 54.2 August 04: WBC 4.5 hemoglobin 12 potassium 3.7 creatinine 0.43 August 03: D-dimer 0.61 CRP 296.4 Admission labs: WBC 8.5 hemoglobin 12.8 platelets 237 lymphocytes 0.8 d-dimer 0.38 potassium 3.6 creatinine 0.67 TSH 3.5 Chest x-ray film personally reviewed by me-bilateral infiltrates Assessment and plan: -Acute bilateral COVID 19 pneumonitis with symptoms starting about 10 days, prior to admission- not improving vitamin C, vitamin D, IV dexamethasone, subcu Lovenox. Remdesivir. Pulmonary consulted. Follow CRP d-dimer -Acute hypoxic respiratory failure secondary to COVID 19 slow to respond Supplement oxygen, up to 8 L of nasal cannula -Hypothyroid Continue with Synthroid -Essential hypertension Continue with atenolol -Chronic sarcoidosis affecting multiple organs except for the brain of the heart. Follow clinically -Anxiety not otherwise specified Continue with Desyrel. -Hypoalbuminemia, second phase reactant -Acute medical debility from above Discussed with the patient. Questions answered. Continue current medications.
[2020-08-06] MEDS: REMDESIVIR 100 MG in SODIUM CHLORIDE 0.9% 250 ML IVPB SCH (19:37)
[2020-08-06] MEDS: traZODone HCL 50 MG TAB PO PRN (19:40)
[2020-08-07] MEDS: SODIUM CHLORIDE 0.9% 1,000 ML IV SCH ×2 (04:57→10:44)
[2020-08-07] MEDS: LEVOTHYROXINE 75 MCG TAB PO SCH (05:41)
[2020-08-07] MEDS: LEVOTHYROXINE 100 MCG TAB PO SCH (05:41)
[2020-08-07] MEDS: ENOXAPARIN 40 MG/0.4 ML SYRINGE SQ SCH (10:42)
[2020-08-07] MEDS: ASCORBIC ACID 500 MG TAB PO SCH (10:42)
[2020-08-07] MEDS: buPROPion XL 300 MG TAB.ER.24H PO SCH (10:42)
[2020-08-07] MEDS: atenoloL 25 MG TAB PO SCH (10:43)
[2020-08-07] MEDS: MULTIVITAMINS, THERA 1 EACH TAB PO SCH (10:43)
[2020-08-07] MEDS: DEXAMETHASONE SOD PHOSPHATE 10 MG/ML 1 ML VIAL IV SCH (10:43)
[2020-08-07] MEDS: CHOLECALCIFEROL 25 MCG (1000 IU) TABLET PO SCH (10:43)
--- NOTE | 2020-08-07 14:47 | P.PN ---
Subjective Progress Note Date: 08/07/20 Principal diagnosis: Acute hypoxic respiratory failure Acute covid 19 pneumonia Hypothyroidism Hypertension hypertensive cardiovascular disease Vitamin D deficiency Mood disorder depression 08/07/2020, patient seen eval examined during the rounds labs reviewed medications reviewed, patient remains on a liter oxygen remains afebrile oxygen saturation mid 90s, some puffiness in the lower extremity have been noted, will DC the IV fluids and encourage patient to take by mouth, discussed with the RN to taper oxygen down as tolerated further probably 1-2 L in next 24 hours 08/06/2020, patient seen eval examined during the rounds labs reviewed medications reviewed care plan discussed, respiratory status slightly better patient remains on 8 L oxygen saturation is 94-96%, cough congestion shortness of breath significantly improved, 08/05/2020, patient seen eval examined during the rounds labs reviewed medications reviewed care plan discussed, respiratory status remains stable, however patient remains short of breath, intermittent dry cough is present, FiO2 just have been lowered down from 10 L to 8 L, oxygen saturation is 96%, 08/04/2020, patient seen eval examined shortness of breath still there patient has been explained about sleeping as much as possible supine, saturation is stable on 10 L, oxygen saturation 94-96%, hemodynamically stable and afebrile, BUN and creatinine improved now, patient remains on IV REMdesivir along with Lovenox and Decadron This is a 49-year-old female has been diagnosed: Weight 19 pneumonia about a week ago symptoms however started in the last 4 days her has been has been admitted into the hospital with similar problems, currently patient is on 4 L oxygen, patient has been running fever up to 104, her prior history significant for depression, hypothyroidism, hypertension, mood disorder, vitamin D deficiency, she is a nonsmoker, arrival she was noted to have a d-dimer to be 0.38 within normal limit, her chest x-ray shows progressive bilateral patchy infiltrate month currently patient is being treated with dexamethasone and Lovenox and continuation of home medication with supplemental oxygen Objective - Vital Signs Vital signs: Vital Signs Temp 97.9 F 08/07/20 07:40 Pulse 60 08/07/20 07:40 Resp 18 08/07/20 07:40 BP 150/83 08/07/20 07:40 Pulse Ox 94 L 08/07/20 07:40 Intake & Output 08/06/20 08/07/20 08/07/20 18:59 06:59 18:59 Intake Total 1600 1200 Output Total 750 Balance 850 1200 Intake: IV 1100 Sodium Chloride 0.9% 1, 1100 000 ml @ 100 mls/hr IV . Q10H [facility] Rx#:[id number] Intake, IV Titration 1200 Amount Sodium Chloride 0.9% 1, 1200 000 ml @ 100 mls/hr IV . Q10H [facility] Rx#:[id number] Oral 500 Output: Urine 750 Other: # Voids 2 - Exam - Constitutional General appearance: cooperative, disheveled - EENT Eyes: EOMI, PERRLA Ears: bilateral: normal - Neck Carotids: bilateral: upstroke normal Thyroid: bilateral: normal size - Respiratory Respiratory: bilateral: diminished - Cardiovascular Rhythm: regular Heart sounds: normal: S1, S2 - Gastrointestinal General gastrointestinal: decreased bowel sounds, soft - Integumentary Integumentary: normal turgor - Neurologic Neurologic: CNII-XII intact - Musculoskeletal Musculoskeletal: gait normal, generalized weakness, strength equal bilaterally - Psychiatric Psychiatric: A&O x's 3, appropriate affect, intact judgment & insight - Labs CBC & Chem 7: 08/04/20 13:23 08/04/20 13:23 Labs: Abnormal Lab Results - Last 24 Hours (Table) 08/07/20 08/07/20 Range/Units 10:05 10:05 D-Dimer 0.95 H (<0.60) mg/L FEU C-Reactive Protein 45.7 H (<10.0) mg/L Assessment and Plan Assessment: Acute hypoxic respiratory failure Acute covid 19 pneumonia Hypothyroidism Hypertension hypertensive cardiovascular disease Vitamin D deficiency Mood disorder depression Plan: IV REMdesivir Steroids in the form of Decadron Continue home medications Continue supplements Deep breathing exercise incentive spirometry Prone positioning Continue to increase activity as tolerated Supplemental oxygen continue titrated down slowly as tolerated Anticoagulation Further recommendations pending plan of care as per clinical response of the patient Time with Patient: Greater than 30
[2020-08-07] MEDS: REMDESIVIR 100 MG in SODIUM CHLORIDE 0.9% 250 ML IVPB SCH (20:35)
--- NOTE | 2020-08-07 22:17 | P.PN ---
Progress Note - Text Progress Note Date: 08/07/20 Chief Complaint: Short of breath History of presenting complaint: This is a very pleasant 49-year-old patient who follows with Dr. Rojas. Around July 23 patient started becoming progressively short of breath. The left or cough. Fever and chills. Significant headache and body ache. Developed loss of smell and taste. Some diarrhea. [place] very tired and exhausted. Patient was checking her pulse ox at home for last 2 days the pulse ox dropped into the 80s. Patient was diagnosed with COVID 19 on July 29. At [facility] on. Presented to ER admitted with a diagnosis of COVID 19 pneumonia. Patient's is also admitted for the same. With her. Admitted with bilateral COVID 19 pneumonia, acute hypoxic respiratory failure. Given IV dexamethasone Lovenox Remdesivir. Today: Sitting up in bed. Tired. Short of breath. Did eat some. Feels a bit better. Review of systems: Was done for constitutional, cardiovascular, GI, pulmonary. relevant finding as above Active Medications Acetaminophen (Acetaminophen Tab 500 Mg Tab) 500 mg PO Q6HR PRN PRN Reason: Fever and/ or Pain Last Admin: 08/05/20 02:37 Dose: 500 mg Documented by: Albuterol Sulfate (Albuterol Hfa Inhaler) 2 puff INHALATION RT-QID PRN PRN Reason: Shortness Of Breath Or Wheezing Last Admin: 08/06/20 07:53 Dose: 2 puff Documented by: Ascorbic Acid (Ascorbic Acid 500 Mg Tab) 1,000 mg PO DAILY [facility] Last Admin: 08/07/20 10:42 Dose: 1,000 mg Documented by: Atenolol (Atenolol 25 Mg Tab) 25 mg PO DAILY [facility] Last Admin: 08/07/20 10:43 Dose: 25 mg Documented by: Bupropion HCl (Bupropion Xl 300 Mg Tab.Er.24h) 300 mg PO DAILY [facility] Last Admin: 08/07/20 10:42 Dose: 300 mg Documented by: Cholecalciferol (Cholecalciferol 25 Mcg (1000 Iu) Tablet) 125 mcg PO DAILY [facility] Last Admin: 08/07/20 10:43 Dose: 125 mcg Documented by: Dexamethasone Sodium Phosphate (Dexamethasone Sod Phosphate 10 Mg/Ml 1 Ml Vial) 6 mg IV DAILY [facility] Last Admin: 08/07/20 10:43 Dose: 6 mg Documented by: Enoxaparin Sodium (Enoxaparin 40 Mg/0.4 Ml Syringe) 40 mg SQ DAILY [facility] Last Admin: 08/07/20 10:42 Dose: 40 mg Documented by: Sodium Chloride (Saline 0.9%) 1,000 mls @ 100 mls/hr IV .Q10H [facility] Last Admin: 08/07/20 10:44 Dose: 100 mls/hr Documented by: Levothyroxine Sodium (Levothyroxine 100 Mcg Tab) 100 mcg PO DAILY@0630 [facility] Last Admin: 08/07/20 05:41 Dose: 100 mcg Documented by: Levothyroxine Sodium (Levothyroxine 75 Mcg Tab) 75 mcg PO DAILY@0630 [facility] Last Admin: 08/07/20 05:41 Dose: 75 mcg Documented by: Multivitamins (Multivitamins, Thera 1 Each Tab) 1 each PO DAILY [facility] Last Admin: 08/07/20 10:43 Dose: 1 each Documented by: Naloxone HCl (Naloxone 0.4 Mg/Ml 1 Ml Vial) 0.2 mg IV Q2M PRN PRN Reason: Opioid Reversal Ondansetron HCl (Ondansetron 4 Mg/2 Ml Vial) 4 mg IVP Q8HR PRN PRN Reason: Nausea And Vomiting Trazodone HCl (Trazodone Hcl 50 Mg Tab) 50 mg PO HS PRN PRN Reason: insomnia Last Admin: 08/06/20 19:40 Dose: 50 mg Documented by: Past medical history to include: Hypertension, hypothyroid, sarcoidosis affecting several organs including her brain and heart. Kidney stones. Anxiety. Social history: . Nonsmoker. Alcohol rarely. Physical examination: VITAL SIGNS: 98.3, 68, 20, 106/68, 93 % on 6 L GENERAL: Sitting up in the bed, short of breath, bit tired LUNGS: Respiratory rate increased, PSYCH: Alert and oriented x3; mood and affect anxious. NEUROLOGICAL: Cranial nerves grossly intact; no facial asymmetry, moving limbs. Rest of exam as per pulmonary and nursing INVESTIGATIONS, reviewed in the clinical context: August 07: D-dimer 0.95 CRP 45.7 August 06: D-dimer 0.93 CRP 54.2 August 04: WBC 4.5 hemoglobin 12 potassium 3.7 creatinine 0.43 August 03: D-dimer 0.61 CRP 296.4 Admission labs: WBC 8.5 hemoglobin 12.8 platelets 237 lymphocytes 0.8 d-dimer 0.38 potassium 3.6 creatinine 0.67 TSH 3.5 Chest x-ray film personally reviewed by me-bilateral infiltrates Assessment and plan: -Acute bilateral COVID 19 pneumonitis with symptoms starting about 10 days, prior to admission-slow to respond vitamin C, vitamin D, IV dexamethasone, subcu Lovenox. Remdesivir. Pulmonary consulted. Follow CRP d-dimer -Acute hypoxic respiratory failure secondary to COVID 19 slow to respond Supplement oxygen, up to 6 L of nasal cannula -Hypothyroid Continue with Synthroid -Essential hypertension Continue with atenolol -Chronic sarcoidosis affecting multiple organs except for the brain of the heart. Follow clinically -Anxiety not otherwise specified Continue with Desyrel. -Hypoalbuminemia, second phase reactant -Acute medical debility from above Discussed with the patient. Reminded to set up in a chair and use incentive spirometry.
[2020-08-08] MEDS: LEVOTHYROXINE 75 MCG TAB PO SCH (05:12)
[2020-08-08] MEDS: LEVOTHYROXINE 100 MCG TAB PO SCH (05:12)
[2020-08-08] MEDS: SODIUM CHLORIDE 0.9% 1,000 ML IV SCH ×3 (05:39→23:18)
[2020-08-08] MEDS: atenoloL 25 MG TAB PO SCH (09:07)
[2020-08-08] MEDS: ENOXAPARIN 40 MG/0.4 ML SYRINGE SQ SCH (09:07)
[2020-08-08] MEDS: buPROPion XL 300 MG TAB.ER.24H PO SCH (09:07)
[2020-08-08] MEDS: MULTIVITAMINS, THERA 1 EACH TAB PO SCH (09:07)
[2020-08-08] MEDS: ASCORBIC ACID 500 MG TAB PO SCH (09:07)
[2020-08-08] MEDS: CHOLECALCIFEROL 25 MCG (1000 IU) TABLET PO SCH (09:07)
[2020-08-08] MEDS: DEXAMETHASONE SOD PHOSPHATE 10 MG/ML 1 ML VIAL IV SCH (09:07)
--- NOTE | 2020-08-08 14:30 | P.PN ---
Subjective Progress Note Date: 08/08/20 Principal diagnosis: Acute hypoxic respiratory failure Acute covid 19 pneumonia Hypothyroidism Hypertension hypertensive cardiovascular disease Vitamin D deficiency Mood disorder depression 08/08/2020, patient has been doing well denies any chest pain shortness of breath significantly improved, FiO2 have been reduced to 2 L now, oxygen saturation is 93%, patient has been ambulating in the room, 08/07/2020, patient seen eval examined during the rounds labs reviewed medic ations reviewed, patient remains on a liter oxygen remains afebrile oxygen saturation mid 90s, some puffiness in the lower extremity have been noted, will DC the IV fluids and encourage patient to take by mouth, discussed with the RN to taper oxygen down as tolerated further probably 1-2 L in next 24 hours 08/06/2020, patient seen eval examined during the rounds labs reviewed medications reviewed care plan discussed, respiratory status slightly better patient remains on 8 L oxygen saturation is 94-96%, cough congestion shortness of breath significantly improved, 08/05/2020, patient seen eval examined during the rounds labs reviewed medications reviewed care plan discussed, respiratory status remains stable, however patient remains short of breath, intermittent dry cough is present, FiO2 just have been lowered down from 10 L to 8 L, oxygen saturation is 96%, 08/04/2020, patient seen eval examined shortness of breath still there patient has been explained about sleeping as much as possible supine, saturation is stable on 10 L, oxygen saturation 94-96%, hemodynamically stable and afebrile, BUN and creatinine improved now, patient remains on IV REMdesivir along with Lovenox and Decadron This is a 49-year-old female has been diagnosed: Weight 19 pneumonia about a week ago symptoms however started in the last 4 days her has been has been admitted into the hospital with similar problems, currently patient is on 4 L oxygen, patient has been running fever up to 104, her prior history significant for depression, hypothyroidism, hypertension, mood disorder, vitamin D deficiency, she is a nonsmoker, arrival she was noted to have a d-dimer to be 0.38 within normal limit, her chest x-ray shows progressive bilateral patchy infiltrate month currently patient is being treated with dexamethasone and Lovenox and continuation of home medication with supplemental oxygen Objective - Vital Signs Vital signs: Vital Signs Temp 98.2 F 08/08/20 13:00 Pulse 74 08/08/20 13:00 Resp 18 08/08/20 13:00 BP 116/63 08/08/20 13:00 Pulse Ox 93 L 08/08/20 13:00 Intake & Output 08/07/20 08/08/20 08/08/20 18:59 06:59 18:59 Intake Total 1550 1100 Output Total 1000 Balance 1550 100 Intake: Intake, IV Titration 800 250 Amount Remdesivir 100 mg In 250 Sodium Chloride 0.9% 250 ml @ 250 mls/hr IVPB DAILY@2100 [facility] Rx#: [id number] Sodium Chloride 0.9% 1, 800 000 ml @ 100 mls/hr IV . Q10H [facility] Rx#:[id number] Oral 750 850 Output: Urine 1000 Other: # Voids 2 - Exam - Constitutional General appearance: cooperative, disheveled - EENT Eyes: EOMI, PERRLA Ears: bilateral: normal - Neck Carotids: bilateral: upstroke normal Thyroid: bilateral: normal size - Respiratory Respiratory: bilateral: diminished - Cardiovascular Rhythm: regular Heart sounds: normal: S1, S2 - Gastrointestinal General gastrointestinal: decreased bowel sounds, soft - Integumentary Integumentary: normal turgor - Neurologic Neurologic: CNII-XII intact - Musculoskeletal Musculoskeletal: gait normal, generalized weakness, strength equal bilaterally - Psychiatric Psychiatric: A&O x's 3, appropriate affect, intact judgment & insight - Labs CBC & Chem 7: 08/04/20 13:23 08/04/20 13:23 Assessment and Plan Assessment: Acute hypoxic respiratory failure Acute covid 19 pneumonia Hypothyroidism Hypertension hypertensive cardiovascular disease Vitamin D deficiency Mood disorder depression Plan: Five-day course of IV REMdesivir Steroids in the form of Decadron Continue home medications Continue supplements Deep breathing exercise incentive spirometry Prone positioning Continue to increase activity as tolerated Supplemental oxygen continue titrated down slowly as tolerated Anticoagulation Further recommendations pending plan of care as per clinical response of the patient Time with Patient: Greater than 30
--- NOTE | 2020-08-08 17:17 | P.PN ---
Progress Note - Text Progress Note Date: 08/08/20 Chief Complaint: Short of breath History of presenting complaint: This is a very pleasant 49-year-old patient who follows with Dr. Rojas. Around July 23 patient started becoming progressively short of breath. The left or cough. Fever and chills. Significant headache and body ache. Developed loss of smell and taste. Some diarrhea. [place] very tired and exhausted. Patient was checking her pulse ox at home for last 2 days the pulse ox dropped into the 80s. Patient was diagnosed with COVID 19 on July 29. At [facility] on. Presented to ER admitted with a diagnosis of COVID 19 pneumonia. Patient's is also admitted for the same. With her. Admitted with bilateral COVID 19 pneumonia, acute hypoxic respiratory failure. Given IV dexamethasone Lovenox Remdesivir. Today: Breathing better. Sitting up in bed. Oral intake improving. Down to 2 L of nasal cannula. Does get short-winded with activity Review of systems: Was done for constitutional, cardiovascular, GI, pulmonary. relevant finding as above Active Medications Acetaminophen (Acetaminophen Tab 500 Mg Tab) 500 mg PO Q6HR PRN PRN Reason: Fever and/ or Pain Last Admin: 08/05/20 02:37 Dose: 500 mg Documented by: Albuterol Sulfate (Albuterol Hfa Inhaler) 2 puff INHALATION RT-QID PRN PRN Reason: Shortness Of Breath Or Wheezing Last Admin: 08/06/20 07:53 Dose: 2 puff Documented by: Ascorbic Acid (Ascorbic Acid 500 Mg Tab) 1,000 mg PO DAILY [facility] Last Admin: 08/08/20 09:07 Dose: 1,000 mg Documented by: Atenolol (Atenolol 25 Mg Tab) 25 mg PO DAILY [facility] Last Admin: 08/08/20 09:07 Dose: 25 mg Documented by: Bupropion HCl (Bupropion Xl 300 Mg Tab.Er.24h) 300 mg PO DAILY [facility] Last Admin: 08/08/20 09:07 Dose: 300 mg Documented by: Cholecalciferol (Cholecalciferol 25 Mcg (1000 Iu) Tablet) 125 mcg PO DAILY [facility] Last Admin: 08/08/20 09:07 Dose: 125 mcg Documented by: Dexamethasone Sodium Phosphate (Dexamethasone Sod Phosphate 10 Mg/Ml 1 Ml Vial) 6 mg IV DAILY [facility] Last Admin: 08/08/20 09:07 Dose: 6 mg Documented by: Enoxaparin Sodium (Enoxaparin 40 Mg/0.4 Ml Syringe) 40 mg SQ DAILY [facility] Last Admin: 08/08/20 09:07 Dose: 40 mg Documented by: Sodium Chloride (Saline 0.9%) 1,000 mls @ 100 mls/hr IV .Q10H [facility] Last Admin: 08/08/20 12:38 Dose: Not Given Documented by: Levothyroxine Sodium (Levothyroxine 100 Mcg Tab) 100 mcg PO DAILY@629 [facility] Last Admin: 08/08/20 05:12 Dose: 100 mcg Documented by: Levothyroxine Sodium (Levothyroxine 75 Mcg Tab) 75 mcg PO DAILY@629 [facility] Last Admin: 08/08/20 05:12 Dose: 75 mcg Documented by: Multivitamins (Multivitamins, Thera 1 Each Tab) 1 each PO DAILY [facility] Last Admin: 08/08/20 09:07 Dose: 1 each Documented by: Naloxone HCl (Naloxone 0.4 Mg/Ml 1 Ml Vial) 0.2 mg IV Q2M PRN PRN Reason: Opioid Reversal Ondansetron HCl (Ondansetron 4 Mg/2 Ml Vial) 4 mg IVP Q8HR PRN PRN Reason: Nausea And Vomiting Trazodone HCl (Trazodone Hcl 50 Mg Tab) 50 mg PO HS PRN PRN Reason: insomnia Last Admin: 08/06/20 19:40 Dose: 50 mg Documented by: Past medical history to include: Hypertension, hypothyroid, sarcoidosis affecting several organs including her brain and heart. Kidney stones. Anxiety. Social history: . Nonsmoker. Alcohol rarely. Physical examination: VITAL SIGNS: 98.2, 74, 18, 116/63, 93% on 2 L GENERAL: Sitting up in the bed, breathing much improved LUNGS: Respiratory rate increased, PSYCH: Alert and oriented x3; mood and affect anxious. NEUROLOGICAL: Cranial nerves grossly intact; no facial asymmetry, moving limbs. Rest of exam as per pulmonary and nursing INVESTIGATIONS, reviewed in the clinical context: August 08: D-dimer 0.95 CRP 45.7 August 07: D-dimer 0.95 CRP 45.7 August 06: D-dimer 0.93 CRP 54.2 August 04: WBC 4.5 hemoglobin 12 potassium 3.7 creatinine 0.43 Kelley 6: D-dimer 0.61 CRP 296.4 Admission labs: WBC 8.5 hemoglobin 12.8 platelets 237 lymphocytes 0.8 d-dimer 0.38 potassium 3.6 creatinine 0.67 TSH 3.5 Chest x-ray film personally reviewed by me-bilateral infiltrates Assessment and plan: -Acute bilateral COVID 19 pneumonitis with symptoms starting about 10 days, prior to clinically improving vitamin C, vitamin D, IV dexamethasone, subcu Lovenox. Remdesivir. Pulmonary consulted. Follow CRP d-dimer -Acute hypoxic respiratory failure secondary to COVID 19-improving Supplement oxygen, down to 2 L -Hypothyroid Continue with Synthroid -Essential hypertension Continue with atenolol -Chronic sarcoidosis affecting multiple organs except for the brain of the heart. Follow clinically -Anxiety not otherwise specified Continue with Desyrel. -Hypoalbuminemia, second phase reactant -Acute medical debility from above-improving Discussed with the patient., Doing better. Hopefully can be discharged home on 2 L of oxygen. Continue increasing activity
[2020-08-09] MEDS: LEVOTHYROXINE 75 MCG TAB PO SCH (06:11)
[2020-08-09] MEDS: LEVOTHYROXINE 100 MCG TAB PO SCH (06:11)
[2020-08-09] MEDS: SODIUM CHLORIDE 0.9% 1,000 ML IV SCH (08:10)
[2020-08-09] MEDS: DEXAMETHASONE SOD PHOSPHATE 10 MG/ML 1 ML VIAL IV SCH (08:12)
[2020-08-09] MEDS: ASCORBIC ACID 500 MG TAB PO SCH (08:13)
[2020-08-09] MEDS: ENOXAPARIN 40 MG/0.4 ML SYRINGE SQ SCH (08:14)
[2020-08-09] MEDS: buPROPion XL 300 MG TAB.ER.24H PO SCH (08:14)
[2020-08-09] MEDS: atenoloL 25 MG TAB PO SCH (08:14)
[2020-08-09] MEDS: MULTIVITAMINS, THERA 1 EACH TAB PO SCH (08:14)
[2020-08-09 08:25] VITALS: BP 110/75; PULSE 62; RESP 16; TEMP 97.6
[2020-08-09] MEDS: CHOLECALCIFEROL 25 MCG (1000 IU) TABLET PO SCH (09:57)
--- NOTE | 2020-08-09 23:39 | P.DS ---
Providers Date of admission: 08/02/20 22:08 Expected date of discharge: 08/09/20 Attending physician: Donte Caruso Consults: 08/03/20 00:03 Consult Physician Routine Consulting Provider: Lele Luz Consult Reason/Comments: covid Do you want consulting provider notified?: Yes 08/03/20 10:33 Consult Physician Routine Consulting Provider: Itzel Urbina Consult Reason/Comments: covid-19 Do you want consulting provider notified?: Yes Primary care physician: Fabien Rojas [facility] Course: Chief Complaint: Short of breath History of presenting complaint: This is a very pleasant 49-year-old patient who follows with Dr. Rojas. Around July 23 patient started becoming progressively short of breath. The left or cough. Fever and chills. Significant headache and body ache. Developed loss of smell and taste. Some diarrhea. [place] very tired and exhausted. Patient was checking her pulse ox at home for last 2 days the pulse ox dropped into the 80s. Patient was diagnosed with COVID 19 on July 29. At [facility] on. Presented to ER admitted with a diagnosis of COVID 19 pneumonia. Patient's is also admitted for the same. With her. Admitted with bilateral COVID 19 pneumonia, acute hypoxic respiratory failure. Given IV dexamethasone Lovenox Remdesivir. Patient oxygen requirement had gone up to 10 L. Slowly improving. Today: Has made remarkable improvement. Now pulse ox 92% with activity. Patient feels great. Oral intake good. Very keen to go home. Patient be put on the tapering dose of steroids and xarelto 2.5 mg. Consultation: Dr. Luz from pulmonary Past medical history to include: Hypertension, hypothyroid, sarcoidosis affecting several organs including her brain and heart. Kidney stones. Anxiety. Social history: . Nonsmoker. Alcohol rarely. Physical examination: VITAL SIGNS: 97.6, 62, 16, 175, 92% on room air with activity GENERAL: Sitting up in the bed, comfortable LUNGS: Respiratory rate normal, PSYCH: Alert and oriented x3; mood and affect anxious. NEUROLOGICAL: Cranial nerves grossly intact; no facial asymmetry, moving limbs. Rest of exam as per pulmonary and nursing INVESTIGATIONS, reviewed in the clinical context: August 08: D-dimer 0.95 CRP 45.7 August 07: D-dimer 0.95 CRP 45.7 August 06: D-dimer 0.93 CRP 54.2 August 04: WBC 4.5 hemoglobin 12 potassium 3.7 creatinine 0.43 August 03: D-dimer 0.61 CRP 296.4 Admission labs: WBC 8.5 hemoglobin 12.8 platelets 237 lymphocytes 0.8 d-dimer 0.38 potassium 3.6 creatinine 0.67 TSH 3.5 Chest x-ray film personally reviewed by me-bilateral infiltrates Assessment and plan: -Acute bilateral COVID 19 pneumonitis with symptoms starting about 10 days, prior to presentation: Improved vitamin C, vitamin D, IV dexamethasone, subcu Lovenox. Remdesivir. Pulmonary consulted. Follow CRP d-dimer -Acute hypoxic respiratory failure secondary to COVID improved Pulse ox 92% with activity -Hypothyroid Continue with Synthroid -Essential hypertension Continue with atenolol -Chronic sarcoidosis affecting multiple organs except for the brain of the heart. Follow clinically -Anxiety not otherwise specified Continue with Desyrel. -Hypoalbuminemia, second phase reactant -Acute medical debility from above-improving Disposition: Home Patient Condition at Discharge: Fair Plan - Discharge Summary Discharge Rx Participant: No New Discharge Prescriptions: New Albuterol Inhaler [Ventolin Hfa Inhaler] 2 puff INHALATION RT-QID PRN #1 puff PRN Reason: Shortness Of Breath Or Wheezing predniSONE 10 mg PO DAILY #30 tab Rivaroxaban [Xarelto] 2.5 mg PO DAILY #30 tab Continue Multivitamins, Thera [Multivitamin (formulary)] 1 tab PO DAILY traZODone HCL [Desyrel] 50 mg PO HS PRN PRN Reason: insomnia atenoloL [Atenolol] 25 mg PO DAILY Fluticasone Nasal Girard [Flonase Nasal Girard] 1 spray EA NOSTRIL DAILY Cholecalciferol (Vitamin D3) [Vitamin D3 (5000 Iu)] 125 mcg PO DAILY buPROPion XL [Wellbutrin XL] 300 mg PO DAILY Levothyroxine Sodium [Synthroid] 175 mcg PO DAILY Ascorbic Acid [Vitamin C] 1,000 mg PO DAILY Discontinued Potassium Chloride [Klor-Con 20] 20 meq PO TID Discharge Medication List Multivitamins, Thera [Multivitamin (formulary)] 1 tab PO DAILY 01/06/16 [History] traZODone HCL [Desyrel] 50 mg PO HS PRN 04/03/18 [History] atenoloL [Atenolol] 25 mg PO DAILY 03/04/19 [History] Levothyroxine Sodium [Synthroid] 175 mcg PO DAILY 07/29/20 [History] buPROPion XL [Wellbutrin XL] 300 mg PO DAILY 07/29/20 [History] Ascorbic Acid [Vitamin C] 1,000 mg PO DAILY 08/02/20 [History] Cholecalciferol (Vitamin D3) [Vitamin D3 (5000 Iu)] 125 mcg PO DAILY 08/02/20 [History] Fluticasone Nasal Girard [Flonase Nasal Girard] 1 spray EA NOSTRIL DAILY 08/02/20 [History] Albuterol Inhaler [Ventolin Hfa Inhaler] 2 puff INHALATION RT-QID PRN #1 puff 08/09/20 [Rx] Rivaroxaban [Xarelto] 2.5 mg PO DAILY #30 tab 08/09/20 [Rx] predniSONE 10 mg PO DAILY #30 tab 08/09/20 [Rx] Follow up Appointment(s)/Referral(s): Fabien Rojas MD [Primary Care Provider] - 08/11/20 5:00 pm (Appt. will be done via Telehealth Visit ) Lele Luz MD [STAFF PHYSICIAN] - 1 Week (Office should contact you and arrange for follow-up appt. ) Patient Instructions/Handouts: Albuterol (By breathing), Prednisone (By mouth), Rivaroxaban (By mouth), Coronavirus Disease 2019 (COVID-19), Hypoxia (GEN) Discharge Disposition: HOME SELF-CARE
== END 2020-08-09 14:38 | disposition home or self-care (01) | DRG 177 ==
LOC: EC 19:38 → 4SSUR 22:08 → 1SOBS 08-03 07:53
PROVIDERS: ADMIT Hospitalist; ATTEND Hospitalist
PROC: XW033E5 Introduction of Remdesivir Anti-infective into Peripheral Vein, Percutaneous Approach, New Technology Group 5 (ICD-10-PCS; principal; 2020-08-04)
DX: U07.1 COVID-19 (principal); J12.82 Pneumonia due to coronavirus disease 2019; J96.01 Acute respiratory failure with hypoxia; R53.81 Other malaise; E88.09 Other disorders of plasma-protein metabolism, not elsewhere classified; I11.9 Hypertensive heart disease without heart failure; F32.9 Major depressive disorder, single episode, unspecified; D86.9 Sarcoidosis, unspecified; E55.9 Vitamin D deficiency, unspecified; E03.9 Hypothyroidism, unspecified; F41.9 Anxiety disorder, unspecified; Z82.49 Family history of ischemic heart disease and other diseases of the circulatory system; Z87.440 Personal history of urinary (tract) infections; Z81.1 Family history of alcohol abuse and dependence; Z87.442 Personal history of urinary calculi; Z88.1 Allergy status to other antibiotic agents; Z88.5 Allergy status to narcotic agent; Z88.0 Allergy status to penicillin; Z88.2 Allergy status to sulfonamides; Z79.01 Long term (current) use of anticoagulants; Z79.890 Hormone replacement therapy; Z79.52 Long term (current) use of systemic steroids; Z79.899 Other long term (current) drug therapy
CPT/HCPCS: 36415; 71046; 80053; 83605; 83735; 84100; 84443; 84484; 85025; 85379; 85610; 85730; 86140; 93005; 94640; 94760; 96360; 96361; 99285

== ENCOUNTER 2020-11-13 19:23 | Emergency (ER) | payer OTHER ==
[2020-11-13 19:30] VITALS: BP 137/85; PULSE 69; RESP 18; TEMP 97.8
--- NOTE | 2020-11-13 19:56 | ED ---
Eye Problem HPI - General Source: patient Mode of arrival: ambulatory Limitations: no limitations <Judy Ma - Last Filed: 11/14/20 02:46> <Izabella Sierra - Last Filed: 11/14/20 23:15> - General Chief complaint: Eye Problems Stated complaint: Loss of vision in L eye Time Seen by Provider: 11/13/20 19:31 - History of Present Illness Initial comments: 49 year-old female patient presents to the emergency department for evaluation of visual disturbance to the left eye. States that for the last week she has had some blurred vision in the left eye. States that about 2 hours ago she lost the medial half of the visual field in the left eye. She denies any eye pain or headache. States she was not doing anything strenuous when the symptoms started. Has past medical history of sarcoidosis and hypertension. States her blood pressure is generally well controlled with medication. (Judy Ma) - Related Data Home Medications Medication Instructions Recorded Confirmed Multivitamins, Thera [Multivitamin 1 tab PO DAILY 01/06/16 11/13/20 (formulary)] atenoloL [Atenolol] 25 mg PO DAILY 03/04/19 11/13/20 Levothyroxine Sodium [Synthroid] 175 mcg PO DAILY 07/29/20 11/13/20 buPROPion XL [Wellbutrin XL] 300 mg PO DAILY 07/29/20 11/13/20 Ascorbic Acid [Vitamin C] 1,000 mg PO DAILY 08/02/20 11/13/20 Cholecalciferol (Vitamin D3) 125 mcg PO DAILY 08/02/20 11/13/20 [Vitamin D3 (5000 Iu)] Aspirin EC [Ecotrin Low Dose] 81 mg PO DAILY 11/13/20 11/13/20 Biotin 5 mg PO DAILY 11/13/20 11/13/20 Estradiol Cream [Estrace Cream 1 applicator VAGINAL WE 11/13/20 11/13/20 0.01%] Fluocinolone Acetonide [Lidex Soln] 1 applic TOPICAL HS 11/13/20 11/13/20 Potassium Chloride ER [K-Dur 20] 60 meq PO DAILY 11/13/20 11/13/20 busPIRone HCl [Buspar] 5 mg PO BID PRN 11/13/20 11/13/20 traZODone HCL 100 mg PO HS 11/13/20 11/13/20 Previous Rx's Medication Instructions Recorded Albuterol Inhaler [Ventolin Hfa 2 puff INHALATION RT-QID PRN #1 08/09/20 Inhaler] puff Allergies Allergy/AdvReac Type Severity Reaction Status Date / Time amoxicillin [From Augmentin] Allergy Dyspnea Verified 11/13/20 20:47 clavulanic acid Allergy Dyspnea Verified 11/13/20 20:47 [From Augmentin] hydrocodone bitartrate Allergy Rash/Hives Verified 11/13/20 20:47 [From Vicodin] meperidine HCl [From Demerol] Allergy Rash/Hives Verified 11/13/20 20:47 sulfamethoxazole Allergy Rash/Hives Verified 11/13/20 20:47 [From Bactrim] trimethoprim [From Bactrim] Allergy Rash/Hives Verified 11/13/20 20:47 Review of Systems ROS Other: All systems not noted in ROS Statement are negative. <Judy Ma - Last Filed: 11/14/20 02:46> ROS Other: All systems not noted in ROS Statement are negative. <Izabella Sierra - Last Filed: 11/14/20 23:15> ROS Statement: Those systems with pertinent positive or pertinent negative responses have been documented in the HPI. Past Medical History Past Medical History: Chest Pain / Angina, Hypertension, Thyroid Disorder Additional Past Medical History / Comment(s): Pt states she has sarcoidosis 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 Kidney stones which pt passed. Ovarian cysts. UTIs. Hypokalemia. History of Any Multi-Drug Resistant Organisms: None Reported Past Surgical History: Orthopedic Surgery, Uterine Ablation Additional Past Surgical History / Comment(s): R knee minisicus repair Past Anesthesia/Blood Transfusion Reactions: Motion Sickness Additional Past Anesthesia/Blood Transfusion Reaction / Comment(s): Pt states she has been itchy after general anesthesia. Past Psychological History: Anxiety Smoking Status: Never smoker Past Alcohol Use History: Rare Past Drug Use History: None Reported - Past Family History Father Family Medical History: Hypertension Additional Family Medical History / Comment(s): alcoholic Mother Family Medical History: Hypertension Additional Family Medical History / Comment(s): Mother is living <Judy Ma - Last Filed: 11/14/20 02:46> General Exam Limitations: no limitations General appearance: alert, in no apparent distress, other (This is a well developed, well nourished adult female patient in no acute stress. Vital signs upon presentation are 97.8F, pulse 69, respirations 18, blood pressure 137/85, pulse ox 97% on room air.) Eye exam: Present: PERRL, EOMI, other (Able to visualize a retinal tear on the left with ophthalmoscope inspection. ). Absent: scleral icterus, conjunctival injection, periorbital swelling Expanded Eyelids: Normal Inspection: Left Pupils: Regular, Round: Left, Reactive: Left Sclera/Conjunctival: Normal Inspection: Left Anterior chamber: Normal Inspection: Left Posterior chamber: Retinal Detachment: Left (Retinal tear) Visual acuity (R) = 20/: 25 Visual acuity (L) = 20/: 40 With correction: Yes IOP (R) in mmH IOP (L) in mmH IOP measured with: Tonopen ENT exam: Present: normal exam, normal oropharynx, mucous membranes moist Respiratory exam: Present: normal lung sounds bilaterally. Absent: respiratory distress, wheezes, rales, rhonchi, stridor Cardiovascular Exam: Present: regular rate, normal rhythm, normal heart sounds. Absent: systolic murmur, diastolic murmur, rubs, gallop, clicks Neurological exam: Present: alert, oriented X3, CN II-XII intact Psychiatric exam: Present: normal affect, normal mood Skin exam: Present: warm, dry, intact, normal color. Absent: rash <Judy Ma - Last Filed: 11/14/20 02:46> Course <Judy Ma - Last Filed: 11/14/20 02:46> Vital Signs 11/13/20 19:24 Temperature 97.8 F Pulse Rate 69 Respiratory 18 Rate Blood Pressure 137/85 O2 Sat by Pulse 97 Oximetry - Reevaluation(s) Reevaluation #1: 11/13/20 19:[address] Jerez for suspicion of retinal tear. (Judy aM) Medical Decision Making <Judy Ma - Last Filed: 11/14/20 02:46> <Izabella Sierra - Last Filed: 11/14/20 23:15> - Medical Decision Making 49-year-old female patient presents to the emergency department today for evaluation of visual disturbance to the left eye. Physical examination did reveal normal-appearing external eye and eyelid. She did have a black jagged line noted over the fundus with opthalmoscope exam. Normal eye pressures. I did discuss the case with investor relations associate ophthalmology Dr. Jerez who will be seeing the patient in the office tomorrow at 10 AM. I did discuss plan with the patient, she is agreeable and agrees to at the office in [place] at 10:00 in the morning. She will be discharged. Return parameters were discussed in detail. She verbalizes understanding and agrees this plan. Case discussed with my attending Dr. Jerez. (Judy Ma) I was available for consultation in the emergency department. The history and physical exam were done by the midlevel provider. I was consulted for this patients care. I reviewed the case with the midlevel provider and based on their presentation of the patient, I agree with the assessment, medical decision making and plan of care as documented. Chart was dictated using [facility] dictation software. Attempts were made to correct any dictation errors however some typographical errors may persist. (Izabella Sierra) Disposition Is patient prescribed a controlled substance at d/c from ED?: No Time of Disposition: 20:51 <Judy Ma - Last Filed: 11/14/20 02:46> <Izabella Sierra - Last Filed: 11/14/20 23:15> Clinical Impression: Retinal tear of left eye Disposition: HOME SELF-CARE Condition: Good Instructions (If sedation given, give patient instructions): Blurred Vision (ED) Additional Instructions: Follow-up at Dr. Jerez's office in the morning at 10:00 AM sharp. He will be waiting for you there. Return to the emergency department for any new, worsening, or concerning symptoms. Referrals: Fabien Rojas MD [Primary Care Provider] - 1-2 days Jagdeep Jerez MD [STAFF PHYSICIAN] - 1-2 days
== END 2020-11-13 21:24 | disposition home or self-care (01) ==
LOC: EC 19:23
DX: H33.312 Horseshoe tear of retina without detachment, left eye (principal); I10 Essential (primary) hypertension; E07.9 Disorder of thyroid, unspecified; Z79.82 Long term (current) use of aspirin; Z87.442 Personal history of urinary calculi
CPT/HCPCS: 99284

== ENCOUNTER → 2020-12-01 | Outpatient (CLI) | payer OTHER ==
--- NOTE | 2020-12-01 16:07 | BD ---
EXAMINATION TYPE: Axial Bone Density DATE OF EXAM: 12/01/2020 COMPARISON: 05.12.2011 CLINICAL HISTORY: 49 YR OLD FEMALE......ICD-10 CODE: N95.1 POST MENOPAUSAL Height: 62.2 Weight: 186 FRAX RISK QUESTIONS: Family History (Parent hip fracture): YES Secondary Osteoporosis: YES 3. Menopause before 45: YES RISK FACTORS HISTORY OF: Family History of Osteoporosis: YES, WITH HIP FX Diet low in dairy products/other sources of calcium: YES Postmenopausal woman: YES, AT AGE 39 Take estrogen and/or progesterone medications: YES, VAGINAL CREAM HORMONE Hyperparathyroidism: NO Adrenal Insufficiency: NO MEDICATIONS: Prednisone or other steroids: YES, ON AND OFF FOR ONE YR WITH COVID SIDE EFFECTS Thyroid Medications: YES, FOR ABOUT 20+ YRS Additional Medications: BP MEDS, WELLBUTRIN, CALCIUM AND VIT D, POTASSIUM AND MULTIVITAMIN Additional History: HYPERTENSION, ALOPECIA DUE TO COVID, THYROID , ARTHRITIS EXAM MEASUREMENTS: Bone mineral densitometry was performed using the [employer]. Bone mineral density as measured about the Lumbar spine is: ----- L1-L4(G/cm2): 1.218 T Score Values are as follows: ----- L1: -0.2 ----- L2: 0.8 ----- L3: 0.1 ----- L4: 0.4 ----- L1-L4: 0.3 Bone mineral density has: Decreased -3.1% since study of: 05.12.2011 Bone mineral density about the R hip (g/cm2): 0.997 Bone mineral density about the L hip (g/cm2): 1.006 T Score values are as follows: -----R Neck: -0.5 -----L Neck: -0.4 -----R Total: -0.1 -----L Total: 0.0 Bone mineral density has: Increased 0.2% since study of: 05.12.2011 FRAX%s: THERE IS A 13.2% CHANCE FOR A MAJOR OSTEOPOROTIC FX AND A 0.2% FOR HIP......PROBABILITY FO R FX IN 10 YRS TIME IMPRESSION: Normal (Values between +1 and -1 indicate normal bone mass). Consider repeating this study in 5 year s or sooner if there is some new clinical indication. NOTE: T-SCORE=SD OF THE YOUNG ADULT MEAN.
--- NOTE | 2020-12-06 12:41 | MM ---
Reason for exam: screening (asymptomatic). History: Patient is postmenopausal. Took hormonal contraceptives for 10 years. Physical Findings: A clinical breast exam by your physician is recommended on an annual basis and results should be correlated with mammographic findings. MG 3D Screening Mammo W/Cad Bilateral CC and MLO view(s) were taken. No prior studies available for comparison. The breast tissue is heterogeneously dense. This may lower the sensitivity of mammography. No significant changes when compared with prior studies. ASSESSMENT: Benign, BI-RAD 2 RECOMMENDATION: Routine screening mammogram of both breasts in 1 year.
== END | disposition home or self-care (01) ==
LOC: RADBDWWP 08:55
PROVIDERS: ATTEND Obstetrics & Gynecology
DX: Z12.31 Encounter for screening mammogram for malignant neoplasm of breast (principal); Z78.0 Asymptomatic menopausal state
CPT/HCPCS: 77063; 77067; 77080

== ENCOUNTER → 2021-10-18 | Outpatient (CLI) | payer OTHER ==
--- NOTE | 2021-10-18 14:04 | P.SLEEP ---
History of Present Illness H&P Date: 10/18/21 tt is apleasant 50-year-old. Patient with known history of obstructive sleep apnea diagnosed back in 2017 based on a home sleep study that was done and at that time the patient had mild disease with an AHI of 12. Her symptoms also mild end she was knocked off her CPAP therapy back then. Over the past 4 years, the patient gained weight in the order of 15 pounds. Note that at time of her original home sleep study, she used to Have a body weight of 184 pounds. Since then, the patient has gained around 15 pounds. Her symptoms have gotten worse and the patient is currently having worse snoring and she is awake and her herself up because of her loud snore. She is feeling tired and sleepy during the day and his sleep is fragmented. She has no difficulties initiating sleep as the patient is taking trazodone and she's been taking for many years. Nevertheless, she has sleep fragmentation. She wakes up choking and gasping for air. She is unable to sleep on her back. She is breathing through her nose and mouth and she is waking up with dry mouth. She has positive weight gain. Fu rthermore, her sleep quality was worse that she had COVID 19 in July 2020 millimeters she was hospitalized for a total of 7 days. The patient is going to bed around 10 PM, waking up between 6 and 8 AM in the morning. She is not taking any naps during the day. Her current Mesa score is at 8. No nighttime chest pain or heartburn. No nighttime shortness of breath. No sleep walking. No sleep talking. No restlessness lower extremities. No anxiety or depression and patient taken Wellbutrin for now. No panic attacks. Review of Systems Constitutional: Reports daytime sleepiness, Reports fatigue, Reports lethargy, Reports weight gain Eyes: denies as per HPI, denies blurred vision, denies bulging eye, denies decreased vision, denies diplopia, denies discharge, denies dry eye, denies irritation, denies itching, denies pain, denies photophobia, denies loss of peripheral vision, denies loss of vision, denies tunnel vision/blind spots Ears: deny: decreased hearing, ear discharge, earache, tinnitus Ears, nose, mouth and throat: Reports as per HPI Breasts: absent: as per HPI, change in shape, gynecomastia, masses, nipple discharge, pain, skin changes, swelling Cardiovascular: Reports as per HPI Respiratory: Reports sleep apnea, Reports snoring Gastrointestinal: Reports as per HPI Genitourinary: Reports as per HPI Menstruation: Reports as per HPI Musculoskeletal: Reports as per HPI Musculoskeletal: absent: ankle pain, ankle stiffness, ankle swelling Integumentary: Reports as per HPI Neurological: Reports as per HPI Psychiatric: Reports sleep disturbances Endocrine: Reports as per HPI, Reports fatigue Hematologic/Lymphatic: Reports as per HPI Allergic/Immunologic: Reports as per HPI Past Medical History Past Medical History: Chest Pain / Angina, Hypertension, Sleep Apnea/CPAP/BIPAP, Thyroid Disorder Additional Past Medical History / Comment(s): Pt states she has sarcoidosis 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 Kidney stones which pt passed. Ovarian cysts. UTIs. Hypokalemia. History of Any Multi-Drug Resistant Organisms: None Reported Past Surgical History: Orthopedic Surgery, Uterine Ablation Additional Past Surgical History / Comment(s): R knee minisicus repair Past Anesthesia/Blood Transfusion Reactions: Motion Sickness Additional Past Anesthesia/Blood Transfusion Reaction / Comment(s): Pt states she has been itchy after general anesthesia. Past Psychological History: Anxiety Smoking Status: Never smoker Past Alcohol Use History: Rare Past Drug Use History: None Reported - Past Family History Father Family Medical History: Hypertension Additional Family Medical History / Comment(s): alcoholic Mother Family Medical History: Hypertension Additional Family Medical History / Comment(s): Mother is living Medications and Allergies Home Medications Medication Instructions Recorded Confirmed Type Multivitamins, Thera [Multivitamin 1 tab PO DAILY 01/06/16 11/13/20 History (formulary)] atenoloL 25 mg PO DAILY 03/04/19 11/13/20 History Levothyroxine Sodium [Synthroid] 175 mcg PO DAILY 07/29/20 11/13/20 History buPROPion XL [Wellbutrin XL] 300 mg PO DAILY 07/29/20 11/13/20 History Ascorbic Acid [Vitamin C] 1,000 mg PO DAILY 08/02/20 11/13/20 History Cholecalciferol (Vitamin D3) 125 mcg PO DAILY 08/02/20 11/13/20 History [Vitamin D3 (5000 Iu)] Albuterol Inhaler [Ventolin Hfa 2 puff INHALATION RT-QID PRN #1 08/09/20 Rx Inhaler] puff Aspirin EC [Ecotrin Low Dose] 81 mg PO DAILY 11/13/20 11/13/20 History Biotin 5 mg PO DAILY 11/13/20 11/13/20 History Estradiol Cream [Estrace Cream 1 applicator VAGINAL WE 11/13/20 11/13/20 History 0.01%] Fluocinolone Acetonide [Lidex Soln] 1 applic TOPICAL HS 11/13/20 11/13/20 History Potassium Chloride ER [K-Dur 20] 60 meq PO DAILY 11/13/20 11/13/20 History busPIRone HCl [Buspar] 5 mg PO BID PRN 11/13/20 11/13/20 History traZODone HCL 100 mg PO HS 11/13/20 11/13/20 History Allergies Allergy/AdvReac Type Severity Reaction Status Date / Time amoxicillin [From Augmentin] Allergy Dyspnea Verified 11/13/20 20:47 clavulanic acid Allergy Dyspnea Verified 11/13/20 20:47 [From Augmentin] hydrocodone bitartrate Allergy Rash/Hives Verified 11/13/20 20:47 [From Vicodin] meperidine HCl [From Demerol] Allergy Rash/Hives Verified 11/13/20 20:47 sulfamethoxazole Allergy Rash/Hives Verified 11/13/20 20:47 [From Bactrim] trimethoprim [From Bactrim] Allergy Rash/Hives Verified 11/13/20 20:47 Physical Exam BP is 110/75, pulse is 73, respirations 16, temperature 97.8 and the pulse ox is 96% on room air oxygen. The patient is a body mass index of 35.2. The patient also has an Mesa score of 8. Weight is at 197. The patient appeared well nourished and normally developed. Vital signs as documented. Head exam is unremarkable. No scleral icterus or corneal arcus noted. Neck is without jugular venous distension, thyromegaly, or carotid bruits. Carotid upstrokes are brisk bilaterally. Mallampati class IV.Lungs are clear to auscultation and percussion. Cardiac exam reveals the PMI to be normally sized and situated. Rhythm is regular. First and second heart sounds normal. No murmurs, rubs or gallops. Abdominal exam reveals normal bowel sounds, no masses, no organomegaly and no aortic enlargement. Extremities are nonedematous and both femoral and pedal pulses are normal.Examination of the skin revealed no evidence of significant rashes, suspicious appearing nevi or other concerning lesions.Neurologically, the patient is awake and alert and the patient does not have any focal neurological deficit. Cranial nerves are essentially intact. Assessment and Plan Plan: 1 obstructive sleep apnea, symptomatic. The patient's original sleep study was in the form of a home sleep study that was performed on 02/16/2018 and the patient had mild disease with an AHI of 12. Since then, the patient become more symptomatically probably related to her ongoing weight gain. She is coming in for reevaluation. She says it more interested in treatment 2 snoring 3 chronic hypersomnia epworth score is at 8 4 sarcoidosis currently inactive in stable 5 hypothyroidism 6 COVID 19 pneumonia diagnosed and treated back in July 2020 and the patient was hospitalized 7 chronic anxiety/depression 8 chronic sleep initiation insomnia and the patient is a maintained on trazodone 9 obesity with a BMI of 35.2 with interval weight gain Plan Repeat home sleep study The established diagnosis and presence of sleep apnea and its severity and decided ongoing treatment is needed. Last modification was emphasized including weight loss We'll continue to follow. The patient seems to be much more to CPAP therapy t his time around as the patient has become much more symptomatic. Sleep Note - Sleep Note Sleep Note: Temperature: Pulse Rate: Respiratory Rate: Blood Pressure: SpO2: Height: Weight: BMI: Neck Circumference:
== END ==
LOC: SLEEP 13:05
PROVIDERS: ATTEND Internal Medicine Critical Care Medicine
DX: G47.33 Obstructive sleep apnea (adult) (pediatric) (principal); D86.9 Sarcoidosis, unspecified; E03.9 Hypothyroidism, unspecified; Z86.16 Personal history of COVID-19; F41.9 Anxiety disorder, unspecified; F32.A Depression, unspecified; E66.9 Obesity, unspecified; Z68.35 Body mass index [BMI] 35.0-35.9, adult; Z79.890 Hormone replacement therapy; Z79.899 Other long term (current) drug therapy; Z88.1 Allergy status to other antibiotic agents; Z88.5 Allergy status to narcotic agent; Z88.2 Allergy status to sulfonamides
CPT/HCPCS: 99211

== ENCOUNTER → 2021-12-02 | Outpatient (CLI) | payer OTHER ==
--- NOTE | 2021-12-05 09:52 | MM ---
Reason for Exam: Screening (asymptomatic). Last screening mammogram was performed 12 month(s) ago. Patient History: Menarche at age 11. First Full-Term at age 21. Postmenopausal. Patient used Hormonal Contraceptives for 10 years. Risk Values: Candis 5 year model risk: 0.9%. NCI Lifetime model risk: 7.8%. Prior Study Comparison: 10/09/2018 Bilateral MG screening mammo w CAD - 2, [facility]. 10/23/2019 Bilateral MG screening mammo w CAD - 2, [facility]. 12/01/2020 Bilateral Screening Mammogram, [facility]. Tissue Density: There are scattered fibroglandular densities. Findings: Analyzed By CAD. Pattern appears symmetrical and stable. No significant interval change is evident. No suspicious groups of microcalcifications, spiculated or lobular masses, architectural distortion or other secondary signs of malignancy are mammographically apparent. Overall Assessment: Benign, BI-RAD 2 Management: Screening Mammogram of both breasts in 1 year. A negative mammogram report should not preclude additional follow up of suspicious palpable abnormalities. Patient should continue monthly self breast exam. A clinical breast exam by your physician is recommended on an annual basis and results should be correlated with mammographic findings. Electronically signed and approved by: Roberto Mathew D.O. Radiologis
== END | disposition home or self-care (01) ==
LOC: RADMAMWWP 08:40
PROVIDERS: ATTEND Obstetrics & Gynecology
DX: Z12.31 Encounter for screening mammogram for malignant neoplasm of breast (principal); Z78.0 Asymptomatic menopausal state
CPT/HCPCS: 77063; 77067

== ENCOUNTER 2022-08-26 01:54 | Emergency (ER) | payer OTHER ==
[2022-08-26 02:01] VITALS: RESP 16; TEMP 98.1
[2022-08-26] MEDS ORDERED: PHENAZOPYRIDINE 100 MG TAB PO STA (02:11)
--- NOTE | 2022-08-26 02:13 | ED ---
Female Urogenital HPI - General Chief complaint: Urogenital Stated complaint: urinary retention Time Seen by Provider: 08/26/22 02:07 Source: patient Mode of arrival: ambulatory Limitations: no limitations - History of Present Illness Initial comments: This patient is a 51-year-old woman who presents with urinary complaints tonight. She states that yesterday in the morning she started having some dysuria. Over the course the day she noticed frequent urge to urinate and a feeling like she could not initiate urination. Tonight she noticed hematuria as well and the symptoms have been more severe. She has not noted constitutional symptoms including no fever or chills, palpitations, dyspnea or chest pain. There is no back or abdominal pain. MD Complaint: dysuria -: hour(s) Location: suprapubic Severity: severe Quality: burning Consistency: constant Improves with: none Worsens with: urination Patient : No Associated Symptoms: hematuria - Related Data Home Medications Medication Instructions Recorded Confirmed Multivitamins, Thera [Multivitamin 1 tab PO DAILY 01/06/16 11/13/20 (formulary)] atenoloL 25 mg PO DAILY 03/04/19 11/13/20 Levothyroxine Sodium [Synthroid] 175 mcg PO DAILY 07/29/20 11/13/20 buPROPion XL [Wellbutrin XL] 300 mg PO DAILY 07/29/20 11/13/20 Ascorbic Acid [Vitamin C] 1,000 mg PO DAILY 08/02/20 11/13/20 Cholecalciferol (Vitamin D3) 125 mcg PO DAILY 08/02/20 11/13/20 [Vitamin D3 (5000 Iu)] Aspirin EC [Ecotrin Low Dose] 81 mg PO DAILY 11/13/20 11/13/20 Biotin 5 mg PO DAILY 11/13/20 11/13/20 Estradiol Cream [Estrace Cream 1 applicator VAGINAL WE 11/13/20 11/13/20 0.01%] Fluocinolone Acetonide [Lidex Soln] 1 applic TOPICAL HS 11/13/20 11/13/20 Potassium Chloride ER [K-Dur 20] 60 meq PO DAILY 11/13/20 11/13/20 busPIRone HCl [Buspar] 5 mg PO BID PRN 11/13/20 11/13/20 traZODone HCL 100 mg PO HS 11/13/20 11/13/20 Previous Rx's Medication Instructions Recorded Albuterol Inhaler [Ventolin Hfa 2 puff INHALATION RT-QID PRN #1 08/09/20 Inhaler] puff Ciprofloxacin HCl [Cipro] 500 mg PO Q12HR #10 tablet 08/26/22 Phenazopyridine [Pyridium] 100 mg PO TID #6 tablet 08/26/22 Allergies Allergy/AdvReac Type Severity Reaction Status Date / Time amoxicillin [From Augmentin] Allergy Dyspnea Verified 11/13/20 20:47 clavulanic acid Allergy Dyspnea Verified 11/13/20 20:47 [From Augmentin] hydrocodone bitartrate Allergy Rash/Hives Verified 11/13/20 20:47 [From Vicodin] meperidine HCl [From Demerol] Allergy Rash/Hives Verified 11/13/20 20:47 sulfamethoxazole Allergy Rash/Hives Verified 11/13/20 20:47 [From Bactrim] trimethoprim [From Bactrim] Allergy Rash/Hives Verified 11/13/20 20:47 Review of Systems ROS Statement: Those systems with pertinent positive or pertinent negative responses have been documented in the HPI. ROS Other: All systems not noted in ROS Statement are negative. Constitutional: Denies: fever, chills, weakness Respiratory: Denies: cough, dyspnea Cardiovascular: Denies: chest pain, palpitations Gastrointestinal: Denies: abdominal pain Genitourinary: Reports: urgency, dysuria, frequency, hematuria. Denies: abnormal menses Musculoskeletal: Denies: back pain Skin: Denies: rash Past Medical History Past Medical History: Chest Pain / Angina, Hypertension, Sleep Apnea/CPAP/BIPAP, Thyroid Disorder Additional Past Medical History / Comment(s): Pt states she has sarcoidosis which has affected all her organs except for her brain and heart but in rem ission as of today 03/04/19. Kidney stones which pt passed. Ovarian cysts. UTIs. Hypokalemia. History of Any Multi-Drug Resistant Organisms: None Reported Past Surgical History: Orthopedic Surgery, Uterine Ablation Additional Past Surgical History / Comment(s): R knee minisicus repair Past Anesthesia/Blood Transfusion Reactions: Motion Sickness Additional Past Anesthesia/Blood Transfusion Reaction / Comment(s): Pt states she has been itchy after general anesthesia. Past Psychological History: Anxiety Smoking Status: Never smoker Past Alcohol Use History: Rare Past Drug Use History: None Reported - Past Family History Father Family Medical History: Hypertension Additional Family Medical History / Comment(s): alcoholic Mother Family Medical History: Hypertension Additional Family Medical History / Comment(s): Mother is living General Exam Limitations: no limitations General appearance: alert, in no apparent distress Head exam: Present: atraumatic, normocephalic Eye exam: Present: normal appearance. Absent: scleral icterus, conjunctival injection Respiratory exam: Present: normal lung sounds bilaterally. Absent: respiratory distress, wheezes, rales, rhonchi, stridor Cardiovascular Exam: Present: regular rate, normal rhythm, normal heart sounds. Absent: systolic murmur, diastolic murmur, rubs, gallop GI/Abdominal exam: Present: soft. Absent: distended, tenderness, guarding, rebound, rigid, mass Back exam: Present: normal inspection. Absent: CVA tenderness (R), CVA tenderness (L) Neurological exam: Present: alert Skin exam: Present: warm, dry, intact, normal color. Absent: rash Course Vital Signs 08/26/22 08/26/22 01:57 03:40 Temperature 98.1 F Pulse Rate 74 79 Respiratory 16 16 Rate Blood Pressure 145/76 118/79 O2 Sat by Pulse 98 94 L Oximetry Medical Decision Making - Medical Decision Making This patient is a 51-year-old woman resenting with dysuria and hematuria. The urinalysis consistent with urinary tract infection. Patient started on antibiotics. We discussed appropriate further care and follow-up as well as the return parameters. Was pt. sent in by a medical professional or institution (, PA, SEED CLEANING MACHINE OPERATOR, urgent care, hospital, or assisted...) When possible be specific @ -[No] Did you speak to anyone other than the patient for history (EMS, parent, family, police, friend...)? What history was obtained from this source @ -[No] Did you review nursing and triage notes (agree or disagree)? Why? @ -[I reviewed and agree with nursing and triage notes] Were old charts reviewed (outside hosp., previous admission, EMS record, old EKG, old radiological studies, urgent care reports/EKG's, assisted records)? Report findings @ -[No old charts were reviewed] Differential Diagnosis (chest pain, altered mental status, abdominal pain women, abdominal pain men, vaginal bleeding, weakness, fever, dyspnea, syncope, headache, dizziness, GI bleed, back pain, seizure, CVA, palpatations, mental health, musculoskeletal)? @ -[Differential Abdominal Pain Women: Appendicitis, Cholecystitis, diverticulosis, ischemic bowel, pancreatitis, hepatitis, UTI, gastroenteritis, AAA, incarcerated hernia, bowel obstruction, constipation, inflammatory bowel, hepatitis, peptic ulcer disease, splenic infarction, perforated viscus, vulvitis, ovarian torsion, PID, kidney stone, placenta abruption, this is not meant to be an all-inclusive list EKG interpreted by me (3pts min.). @ -[ X-rays interpreted by me (1pt min.). @ -[None done] CT interpreted by me (1pt min.). @ -[None done] U/S interpreted by me (1pt. min.). @ -[None done] What testing was considered but not performed or refused? (CT, X-rays, U/S, labs)? Why? @ -[None] What meds were considered but not given or refused? Why? @ -[None] Did you discuss the management of the patient with other professionals (prof amanionals i.e. , PA, SEED CLEANING MACHINE OPERATOR, lab, RT, psych nurse, outreach and education social worker, field adjuster, teacher, veterans service officer, case preparer and liner)? Give summary @ -[No] Was smoking cessation discussed for >3mins.? @ -[No] Was critical care preformed (if so, how long)? @ -[No] Were there social determinants of health that impacted care today? How? (Homelessness, low income, unemployed, alcoholism, drug addiction, transportation, low edu. Level, literacy, decrease access to med. care, [facility], rehab)? @ -[No] Was there de-escalation of care discussed even if they declined (Discuss DNR or withdrawal of care, Hospice)? DNR status @ -[No] What co-morbidities impacted this encounter? (DM, HTN, Smoking, COPD, CAD, Cancer, CVA, ARF, Chemo, Hep., AIDS, mental health diagnosis, sleep apnea, morbid obesity)? @ -[None] Was patient admitted / discharged? Hospital course, mention meds given and route, prescriptions, significant lab abnormalities, going to OR and other pertinent info. @ -[Discharged Undiagnosed new problem with uncertain prognosis? @ -[No] Drug Therapy requiring intensive monitoring for toxicity (Heparin, Nitro, In sulin, Cardizem)? @ -[No] Were any procedures done? @ -[No] Diagnosis/symptom? @ -[Acute urinary tract infection, uncomplicated Acute, or Chronic, or Acute on Chronic? @ -[default] Uncomplicated (without systemic symptoms) or Complicated (systemic symptoms)? @ -[default] Side effects of treatment? @ -[No] Exacerbation, Progression, or Severe Exacerbation? @ -[No] Poses a threat to life or bodily function? How? (Chest pain, USA, VT, pneumonia, PE, COPD, DKA, ARF, appy, cholecystitis, CVA, Diverticulitis, Homicidal, Suicidal, threat to staff... and all critical care pts) @ -[No] - Lab Data Lab Results 08/26/22 08/26/22 Range/Units 02:11 02:13 Urine Color Red Urine Appearance Bloody H (Clear) Urine RBC >182 H (0-5) /hpf Urine WBC >182 H (0-5) /hpf Urine WBC Clumps Many H (None) /hpf Urine Bacteria Occasional H (None) /hpf Urine HCG, Qual Not Detected (Not Detectd) Disposition Clinical Impression: Urinary tract infection Disposition: HOME SELF-CARE Condition: Good Instructions (If sedation given, give patient instructions): Urinary Tract Infection in Women (ED) Prescriptions: Ciprofloxacin HCl [Cipro] 500 mg PO Q12HR #10 tablet Phenazopyridine [Pyridium] 100 mg PO TID #6 tablet Is patient prescribed a controlled substance at d/c from ED?: No Referrals: Fabien Rojas MD [Primary Care Provider] - 1-2 days
[2022-08-26 03:00] LABS: Color,Urine Red
[2022-08-26 03:01] LABS: Appearance,Urine Bloody (Clear)
[2022-08-26 03:06] LABS: Bacteria,Urine Occasional /hpf; RBC,Urine >182 /hpf (0-5); WBC,Urine >182 /hpf (0-5)
[2022-08-26] MEDS ORDERED: LEVOFLOXACIN 500 MG TAB PO STA (03:32)
[2022-08-26 03:53] VITALS: BP 118/79; PULSE 79
== END 2022-08-26 03:53 | disposition home or self-care (01) ==
LOC: EC 01:54
DX: N39.0 Urinary tract infection, site not specified (principal); I10 Essential (primary) hypertension; G47.30 Sleep apnea, unspecified; E07.9 Disorder of thyroid, unspecified; F41.9 Anxiety disorder, unspecified; Z79.899 Other long term (current) drug therapy; Z79.82 Long term (current) use of aspirin; Z79.890 Hormone replacement therapy; Z88.0 Allergy status to penicillin; Z88.1 Allergy status to other antibiotic agents; Z88.2 Allergy status to sulfonamides; Z88.5 Allergy status to narcotic agent
CPT/HCPCS: 81001; 81025; 99283

== ENCOUNTER → 2022-09-18 | Outpatient (CLI) | payer OTHER ==
--- NOTE | 2022-09-19 11:30 | MR ---
EXAMINATION TYPE: MR knee LT wo con DATE OF EXAM: 09/18/2022 COMPARISON: NONE HISTORY: Left knee medial pain and swelling. Internal derangement. Primary osteoarthritis. TECHNIQUE: Multiplanar, multisequence images of the knee is performed without IV contrast. FINDINGS: MEDIAL MENISCUS: Increased signal posterior horn and central body extends to articular surface. LATERAL MENISCUS: Anterior and posterior horns are intact without tear. CRUCIATE LIGAMENTS: The anterior and posterior cruciate ligaments are intact and unremarkable. COLLATERAL LIGAMENTS: The medial collateral ligament and lateral collateral ligament complex are inta ct. Mild fluid signal surrounds the medial collateral ligament. EXTENSOR MECHANISM: Visualized quadriceps and patellar tendons are intact. EFFUSION: No significant suprapatellar joint effusion. POPLITEAL CYST: Tiny popliteal/mcconnell cyst. TRICOMPARTMENT SPACES: Mild to moderate tricompartment joint space loss and spurring. CARTILAGE: Tricompartment articular cartilage is maintained. BONE MARROW SIGNAL: No focal abnormal marrow signal is appreciated. OTHER: No additional significant abnormality is appreciated. IMPRESSION: 1. Full thickness tearing of the medial meniscus involving posterior horn and central body. 2. Mild to moderate tricompartment degenerative changes as detailed above. 3. Tiny popliteal cyst. 4. Mild MCL sprain injury.
== END | disposition home or self-care (01) ==
LOC: RADMRIMAIN 21:15
PROVIDERS: ATTEND Orthopaedic Surgery
DX: S83.242A Other tear of medial meniscus, current injury, left knee, initial encounter (principal); S83.412A Sprain of medial collateral ligament of left knee, initial encounter; M17.12 Unilateral primary osteoarthritis, left knee; M71.22 Synovial cyst of popliteal space [Baker], left knee; M23.8X2 Other internal derangements of left knee; M23.307 Other meniscus derangements, unspecified meniscus, left knee; X58.XXXA Exposure to other specified factors, initial encounter

== ENCOUNTER → 2023-06-11 | Outpatient (CLI) | payer OTHER ==
--- NOTE | 2023-06-11 22:02 | US ---
EXAMINATION TYPE: US pelvic complete DATE OF EXAM: 06/11/2023 COMPARISON: NONE CLINICAL INDICATION: Female, 52 years old with history of N95.0 POSTMENOPAUSAL BLEEDING; postmenopaus al bleeding. TECHNIQUE: Transabdominal (TA EXAM MEASUREMENTS: Uterus: 8.2 x 3.6 x 5.1 cm Endometrial Stripe: 1.0 cm Right Ovary: 2.6 x 2.4 x 2.1 cm 1. Uterus: Anteverted and otherwise wnl 2. Endometrium: thickened. 3. Right Ovary: wnl 4. Left Ovary: Obscured by overlying bowel gas 5. Bilateral Adnexa: wnl 6. Posterior cul-de-sac: wnl IMPRESSION: 1. Endometrial stripe thickness of 1 cm is excessively increased in the setting of postmenopausal ble eding. Further endometrial evaluation as clinically indicated. Hyperplasia, endometrial polyps, and e ndometrial carcinoma are differential considerations. 2. Unable to visualize the left ovary.
== END | disposition home or self-care (01) ==
LOC: RADUSWWP 13:49
PROVIDERS: ATTEND Obstetrics & Gynecology
DX: N95.0 Postmenopausal bleeding (principal); R93.89 Abnormal findings on diagnostic imaging of other specified body structures
CPT/HCPCS: 76856

== ENCOUNTER → 2023-06-13 | Outpatient (CLI) | payer OTHER ==
[2023-06-14 03:48] LABS: Basophils # (A) 0.03 X 10*3/uL (0.00-0.10); Basophils % (A) 0.4 %; Eosinophils # (A) 0.13 X 10*3/uL (0.04-0.35); Eosinophils % (A) 1.7 %; HCT 43.9 % (37.2-46.3); HGB 14.2 g/dL (12.0-15.0); Lymphocytes # (A) 2.89 X 10*3/uL (0.90-5.00); Lymphocytes % (A) 38.6 %; MCHC 32.3 g/dL (32.0-37.0); MCV 92.8 FL (80.0-97.0); Mean Platelet Volume 10.7 FL (9.5-12.2); Monocytes # (A) 0.74 X 10*3/uL (0.20-1.00); Monocytes % (A) 9.9 %; NRBC Per 100 WBC 0 X 10*3/uL (0.00-0.01); Neutrophils # (A) 3.68 X 10*3/uL (1.80-7.70); Neutrophils % (A) 49.3 %; Platelet Count 300 X 10*3/uL (140-440); RBC 4.73 X 10*6/uL (4.10-5.20); RDW 11.9 % (11.5-14.5); WBC 7.48 X 10*3/uL (4.50-10.00)
== END | disposition home or self-care (01) ==
LOC: LABPAT 14:16
PROVIDERS: ATTEND Obstetrics & Gynecology
DX: Z01.818 Encounter for other preprocedural examination (principal)
CPT/HCPCS: 36415; 85025; 93005

== ENCOUNTER 2023-06-19 06:07 | Day surgery (SDC) | payer OTHER ==
[2023-06-14 11:24] VITALS: BMI 36.6
--- NOTE | 2023-06-18 14:41 | P.HPOB ---
History of Present Illness H&P Date: 06/18/23 Chief Complaint: Postmenopausal bleeding, endometrial thickening on ultrasound This is a 52-year-old female 6 para 6 who presents for dilation and curettage with hysteroscopy due to postmenopausal bleeding and endometrial thickening on ultrasound. She stated she had 1 day of sudden onset bright red bleeding starting on about June 08, 2023. She has not had any menses since approximately 2010 or 12 since she had a NovaSure endometrial ablation. Pelvic ultrasound was performed that showed uterus measuring 8.2 x 3.6 x 5.1 cm with an endometrial thickness of 1 cm. Her right ovary appeared normal and her left ovary was not visualized. Patient states that the bleeding stopped after about 1 day but she still has some ongoing lower cramping and pelvic pressure and discomfort. The bleeding was light and has resolved. Obstetrical history: G6, P6. History of 6 vaginal deliveries. Gynecologic history: No history of sexually transmitted diseases. Last menstrual period was approximately 2011. She does have a history of an endometrial ablation. Social history: She is . Her has had a vasectomy. Review of Systems Constitutional: Reports night sweats, Denies chills, Denies fever Eyes: denies blurred vision, denies pain Ears, nose, mouth and throat: Denies headache, Denies sore throat Cardiovascular: Denies chest pain, Denies shortness of breath Respiratory: Denies cough Gastrointestinal: Reports abdominal pain (Lower abdominal cramping), Reports bloating, Denies diarrhea, Denies nausea, Denies vomiting Genitourinary: Reports pelvic pain, Reports prolapse symptoms, Reports stress incontinence, Reports urgency, Reports vaginal dryness Menstruation: Reports postmenopausal Musculoskeletal: Reports low back pain, Reports myalgias Integumentary: Denies pruritus, Denies rash Neurological: Denies numbness, Denies weakness Psychiatric: Reports anxiety, Reports depression, Reports insomnia Endocrine: Reports flushing Past Medical History Past Medical History: Chest Pain / Angina, Hypertension, Sleep Apnea/CPAP/BIPAP, Thyroid Disorder Additional Past Medical History / Comment(s): Pt states she has sarcoidosis 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 Kidney stones which pt passed. Ovarian cysts. UTIs. Hypokalemia. USES C PAP MACHINE-WHEN NEEDED, POST MENOPAUSAL BLEEDING History of Any Multi-Drug Resistant Organisms: None Reported Past Surgical History: Appendectomy, Orthopedic Surgery, Tonsillectomy, Uterine Ablation Additional Past Surgical History / Comment(s): R knee SURGERY, LT KNEE SURGERY, TUMOR REMOVED FROM RT THUMB-BENIGN, COLONOSCOPY, Past Anesthesia/Blood Transfusion Reactions: Motion Sickness Additional Past Anesthesia/Blood Transfusion Reaction / Comment(s): Pt states she has been itchy after general anesthesia. Past Psychological History: Anxiety, Depression Smoking Status: Never smoker Past Alcohol Use History: Rare Past Drug Use History: None Reported - Past Family History Father Family Medical History: Hypertension Additional Family Medical History / Comment(s): alcoholic Mother Family Medical History: Hypertension Additional Family Medical History / Comment(s): Mother is living Medications and Allergies Home Medications Medication Instructions Recorded Confirmed Type Multivitamins, Thera [Multivitamin 1 tab PO DAILY 01/06/16 06/14/23 History (formulary)] atenoloL 25 mg PO DAILY 03/04/19 06/14/23 History buPROPion XL [Wellbutrin XL] 300 mg PO DAILY 07/29/20 06/14/23 History Ascorbic Acid [Vitamin C] 1,000 mg PO DAILY 08/02/20 06/14/23 History Cholecalciferol (Vitamin D3) 125 mcg PO DAILY 08/02/20 06/14/23 History [Vitamin D3 (5000 Iu)] Albuterol Inhaler [Ventolin Hfa 2 puff INHALATION RT-QID PRN #1 08/09/20 06/14/23 Rx Inhaler] puff Biotin 5 mg PO DAILY 11/13/20 06/14/23 History Estradiol Cream [Estrace Cream 1 applicator VAGINAL WE 11/13/20 06/14/23 History 0.01%] Potassium Chloride ER [K-Dur 20] 60 meq PO DAILY 11/13/20 06/14/23 History busPIRone HCl [Buspar] 5 mg PO BID PRN 11/13/20 06/14/23 History traZODone HCL 100 mg PO HS 11/13/20 06/14/23 History Levothyroxine Sodium 200 mcg PO DAILY 06/14/23 06/14/23 History Allergies Allergy/AdvReac Type Severity Reaction Status Date / Time amoxicillin [From Augmentin] Allergy Dyspnea Verified 06/14/23 11:03 clavulanic acid Allergy Dyspnea Verified 06/14/23 11:03 [From Augmentin] hydrocodone bitartrate Allergy Rash/Hives Verified 06/14/23 11:03 [From Vicodin] meperidine HCl [From Demerol] Allergy Rash/Hives Verified 06/14/23 11:03 sulfamethoxazole Allergy Rash/Hives Verified 06/14/23 11:03 [From Bactrim] trimethoprim [From Bactrim] Allergy Rash/Hives Verified 06/14/23 11:03 Exam Osteopathic Statement: *. No significant issues noted on an osteopathic structural exam other than those noted in the History and Physical/Consult. General: Pleasant, well-developed well-nourished female in no acute distress HEENT: Within normal limits Lungs: Clear to auscultation bilaterally Abdomen: Soft, nontender Pelvic exam: Uterus is mid position, mildly tender, with no adnexal masses or tenderness noted. Grade 1 cystocele and grade 2-3 rectocele is noted. Extremities: Negative Homans Assessment and Plan (1) Postmenopausal bleeding Status: Acute Code(s): N95.0 - POSTMENOPAUSAL BLEEDING SNOMED Code(s): 97604069 (2) Endometrial thickening on ultrasound Status: Acute Code(s): R93.89 - ABNORMAL FINDINGS ON DX IMAGING OF OTH BODY STRUCTURES SNOMED Code(s): 465841323 Plan: Proceed with dilation and curettage with hysteroscopy. I have discussed the risks, benefits, and alternative therapies for the above- mentioned procedure and for both sedation/anesthesia as well as necessary blood products administration, if indicated, as they pertain to this patient. The patient has indicated her understanding and acceptance of the risks and procedures discussed.
[~2023-06-19 06:07] MED LIST changes: -HYDROmorphone 0.5 MG/0.5 ML SYRINGE IVP PRN; -LACTATED RINGERS 1,000 ML IV SCH; -ONDANSETRON 4 MG/2 ML VIAL IVP PRN; -PROPOFOL 10 MG/ML 20 ML VIAL IV ONE; +Pre Op ABX Message 1 EACH MISC MISCELLANE ONE
[2023-06-19] MEDS ORDERED: droPERidol 5 MG/2 ML VIAL IVP ONE (06:13)
[2023-06-19] MEDS ORDERED: LIDOCAINE 1% (10MG/ML) FOR IV START INTRADERMA PRN (06:13)
[2023-06-19] MEDS: DEXAMETHASONE SOD PHOSPHATE 4 MG/ML 1 ML VIAL IV ONE (06:55)
[2023-06-19] MEDS: LACTATED RINGERS 1,000 ML IV SCH (06:55)
[2023-06-19] MEDS: MIDAZOLAM 2 MG/2 ML VIAL IVP ONE (06:56)
[2023-06-19] MEDS: ONDANSETRON 4 MG/2 ML VIAL IVP ONE (06:56)
[2023-06-19] MEDS ORDERED: fentaNYL (PF) 50 MCG/ML 2 ML AMP IV PRN (07:00)
[2023-06-19] MEDS ORDERED: SUCCINYLCHOLINE CHLORIDE 200 MG/10 ML VIAL IV ONE (07:28)
[2023-06-19] MEDS ORDERED: KETOROLAC 15 MG/ML 1 ML VIAL ONE (07:28)
[2023-06-19] MEDS ORDERED: LIDOCAINE 1% INJ 10MG/ML (20 ML MDV) ONE (07:28)
[2023-06-19] MEDS ORDERED: PROPOFOL 10 MG/ML 20 ML VIAL IV ONE (07:28)
[2023-06-19] MEDS ORDERED: MIDAZOLAM 2 MG/2 ML VIAL ONE (07:28)
[2023-06-19] MEDS ORDERED: fentaNYL (PF) 50 MCG/ML 2 ML AMP ONE (07:28)
--- NOTE | 2023-06-19 08:04 | P.OP ---
Date of Procedure: 06/19/23 Preoperative Diagnosis: Postmenopausal bleeding Endometrial thickening on ultrasound Postoperative Diagnosis: Same Procedure(s) Performed: Dilation and curettage with hysteroscopy Anesthesia: ELIDA Surgeon: Katy Berry Estimated Blood Loss (ml): 5 Pathology: other (Endometrial curettings) Condition: stable Disposition: same day Indications for Procedure: This is a 52-year-old female 6 para 6 who presents for dilation and curettage with hysteroscopy due to postmenopausal bleeding and endometrial thickening on ultrasound. She stated she had 1 day of sudden onset bright red bleeding starting on about June 08, 2023. She has not had any menses since approximately 2010 or 10 since she had a NovaSure endometrial ablation. Pelvic ultrasound was performed that showed uterus measuring 8.2 x 3.6 x 5.1 cm with an endometrial thickness of 1 cm. Her right ovary appeared normal and her left ovary was not visualized. Patient states that the bleeding stopped after about 1 day but she still has some ongoing lower cramping and pelvic pressure and discomfort. The bleeding was light and has resolved. Operative Findings: Uterus is anteverted with no adnexal masses palpated. Grade 2 cystocele and rectocele are noted and grade 2 uterine prolapse is noted. Cervical os is very stenotic. Upon hysteroscopy, a scarred appearance was noted. No polyps or any other pathology is visualized. Neither tubal ostia are visualized. Scant endometrial curettings were obtained. Description of Procedure: The patient is taken to the operating room where she is placed in the dorsal lithotomy position. She is prepped and draped in the normal sterile fashion. Her bladder was drained with a catheter and then removed. Examination is performed under anesthesia. Uterus is found to be anteverted with no adnexal mass is palpated. Next a weighted speculum was placed in the patient's vagina and a right angle retractor was used to visualize the anterior lip of the cervix. This was grasped with a single-tooth tenaculum for retraction. Next the cervical os is noted to be stenotic and is gently dilated with a Brush dilator. Once it is dilated far enough, uterine sounding is carried out and uterus is sounded to 6-1/2 cm. Cervix was gently dilated a little further and hysteroscopy was performed using normal saline. The above-noted findings were made and pictures are taken. Hysteroscope is withdrawn. Next the cervix was gently dilated slightly further and a medium size sharp curette was used. Sharp curettage was performed into the gritty texture was noted. A slightly irregular contour was palpated. Scant endometrial tissue was obtained. Specimen was removed from the field and sent to pathology labeled endometrial curettings. Next the single-tooth tenaculum was removed and no active bleeding is noted. All instruments were removed from the vagina and all sponge counts are correct. The patient is then taken to recovery room in stable condition.
[2023-06-19 08:33] VITALS: TEMP 97.8
[2023-06-19 09:53] VITALS: BP 115/79; PULSE 67; RESP 16
== END 2023-06-19 09:42 | disposition home or self-care (01) ==
LOC: OR 06:07
PROVIDERS: ATTEND Obstetrics & Gynecology
DX: N95.0 Postmenopausal bleeding (principal); R93.89 Abnormal findings on diagnostic imaging of other specified body structures; I10 Essential (primary) hypertension; G47.33 Obstructive sleep apnea (adult) (pediatric); I20.9 Angina pectoris, unspecified; E07.9 Disorder of thyroid, unspecified; D86.9 Sarcoidosis, unspecified; Z87.442 Personal history of urinary calculi; Z87.440 Personal history of urinary (tract) infections; E87.6 Hypokalemia; N83.209 Unspecified ovarian cyst, unspecified side; Z90.49 Acquired absence of other specified parts of digestive tract; Z98.890 Other specified postprocedural states; F41.9 Anxiety disorder, unspecified; F32.A Depression, unspecified; F10.90 Alcohol use, unspecified, uncomplicated; Z79.890 Hormone replacement therapy; Z79.899 Other long term (current) drug therapy; Z88.0 Allergy status to penicillin; Z88.1 Allergy status to other antibiotic agents; Z88.5 Allergy status to narcotic agent; Z88.2 Allergy status to sulfonamides
CPT/HCPCS: 88305; 58563; J2250; J0330; J1100; J2405; J2001; J3010; J1885; J2704

== ENCOUNTER → 2023-08-14 | Outpatient (CLI) | payer OTHER ==
--- NOTE | 2023-08-14 17:59 | MR ---
EXAMINATION TYPE: MR brain and iac wo/w con DATE OF EXAM: 08/14/2023 COMPARISON: NONE HISTORY: 52-year-old female H93.12 Tinnitus left ear. TECHNIQUE: Multiplanar, multisequence images of the brain and brainstem were acquired before and aft er administration of 8.5 mL IV Gadavist. Diffusion weighted imaging was performed. Additional coned -down sequences through the internal auditory canals and posterior cranial fossa before and after IV contrast administration. FINDINGS: Diffusion weighted images demonstrate no evidence of an acute ischemic lesion in the brain. T2/FLAIR weighted sequences show no significant white matter signal abnormality. Midline structures demonstrate partially empty sella but otherwise normal morphology. The craniocerv ical junction is normal. Brain volume is age appropriate. The ventricles are of normal caliber. There is no evidence of an acute intracranial hemorrhage, infarct, mass, mass-effect or an extra-axia l fluid collection. There is no cerebellopontine angle mass. The internal auditory canals are symmetric. Brainstem and skull base abnormalities are not seen. Post contrast images demonstrate no evidence of pathologic enhancement in the posterior cranial janet a or the internal auditory canals. There is no abnormal enhancement of the labyrinths. Myopic right globe. There appears to be scleral banding of the left globe. Small air-fluid level left maxillary sinus. IMPRESSION: 1. No acute intracranial abnormality seen. No enhancing intracranial lesions. 2. No specific abnormality on acoustic MRI. 3. Air-fluid level left maxillary sinus. Correlate for any symptoms of acute sinusitis.
== END | disposition home or self-care (01) ==
LOC: RADMRIMAIN 11:52
PROVIDERS: ATTEND Otolaryngology
DX: H93.12 Tinnitus, left ear (principal)
CPT/HCPCS: 70553; A9585

== ENCOUNTER → 2023-10-30 | Outpatient (CLI) | payer OTHER ==
[2023-10-30 15:37] LABS: BUN/Creat Ratio 22.62 Ratio (12.00-20.00); Blood Urea Nitrogen 18.1 mg/dL (9.0-27.0); Glucose 90 mg/dL (70-110)
[2023-10-30 15:38] LABS: ALT 25 U/L (8-44); AST 23 U/L (13-35); Albumin 4.6 g/dL (3.8-4.9); Alkaline Phosphatase 109 U/L (41-126); Calcium 9.5 mg/dL (8.7-10.3); Carbon Dioxide 25.7 mmol/L (21.6-31.8); Chloride 104 mmol/L (96-109); Globulin 2.3 g/dL (1.6-3.3); Potassium 4.1 mmol/L (3.5-5.5); Sodium 140 mmol/L (135-145); Total Bilirubin 0.4 mg/dL (0.3-1.2); Total Protein 6.9 g/dL (6.2-8.2)
[2023-10-30 15:39] LABS: Follicle Stimulating Hormone 96.4 mIU/mL; Luteinizing Hormone 49.1 mIU/mL
[2023-10-30 15:40] LABS: HCT 40.6 % (37.2-46.3); HGB 13.4 g/dL (12.0-15.0); MCH 30.5 pg (27.0-32.0); MCV 92.3 FL (80.0-97.0); NRBC Per 100 WBC 0 X 10*3/uL (0.00-0.01); Platelet Count 265 X 10*3/uL (140-440); RDW 12.1 % (11.5-14.5); WBC 5.17 X 10*3/uL (4.50-10.00)
== END | disposition home or self-care (01) ==
LOC: LABWHC1 10:25
PROVIDERS: ATTEND Internal Medicine Endocrinology, Diabetes & Metabolism
DX: E23.6 Other disorders of pituitary gland (principal)
CPT/HCPCS: 36415; 80053; 82024; 82533; 83001; 83002; 84146; 84305; 85027

== ENCOUNTER → 2024-04-25 | Outpatient (CLI) | payer OTHER ==
--- NOTE | 2024-04-28 08:07 | MM ---
Reason for Exam: Screening (asymptomatic). Last mammogram was performed 1 year(s) and 3 month(s) ago. Patient History: Menarche at age 11. First Full-Term at age 21. Postmenopausal. Currently using Estrogen, starting at age 49. Patient used Hormonal Contraceptives for 10 years. Risk Values: Candsi 5 year model risk: 1.1%. NCI Lifetime model risk: 7.4%. Prior Study Comparison: 12/01/2020 Bilateral Screening Mammogram, [facility]. 12/02/2021 Bilateral MG 3D screening mammo w/cad, [facility]. 01/25/2023 Bilateral MG 3D screening mammo w/cad, [facility]. Tissue Density: There are scattered areas of fibroglandular density. Findings: Analyzed By CAD. The pattern is symmetrical. No significant interval change No suspicious groups of microcalcifications, spiculated or lobular masses, architectural distortion or other secondary signs of malignancy are mammographically apparent. Overall Assessment: Benign, BI-RAD 2 Management: Screening Mammogram of both breasts in 1 year. A negative mammogram report should not preclude additional follow up of suspicious palpable abnormalities. Patient should continue monthly self breast exam. A clinical breast exam by your physician is recommended on an annual basis and results should be correlated with mammographic findings. Note on Candis scores and lifetime risk: 1. A Candis score greater than 3% is considered moderate risk. If this is the case, consider specialist referral to assess eligibility for a risk reducing agent. 2. If overall lifetime risk for the development of breast cancer is 20% or higher, the patient may qualify for future screening with alternating mammogram and breast MRI. [facility], , 04/28/2024 8:03 AM. Electronically signed and approved by: Roberto Mathew D.O. Radiologis
== END | disposition home or self-care (01) ==
LOC: RADMAMWWP 08:39
PROVIDERS: ATTEND Pediatrics
DX: Z12.31 Encounter for screening mammogram for malignant neoplasm of breast (principal); Z78.0 Asymptomatic menopausal state; R92.323 Mammographic fibroglandular density, bilateral breasts
CPT/HCPCS: 77063; 77067